=== PATIENT | female | born 1975 | race Caucasian/White ===

== ENCOUNTER 2016-03-18 15:57 | Observation (INO) ==
[2016-03-18] MEDS ORDERED: Ipratropium/Albuterol Neb 3 ML IH ONE ×2 (16:15→16:19)
[2016-03-18] MEDS ORDERED: methylPREDNISolone 125 MG/2 ML VIAL IVP ONE (16:15)
--- NOTE | 2016-03-18 16:21 | Emergency Department Note ---
Disposition Clinical Impression: Asthma with exacerbation Qualifiers: Asthma severity: unspecified severity Qualified Code(s): J45.901 - Unspecified asthma with (acute) exacerbation Disposition: Admitted As Inpatient Condition: Fair Referrals: Rolando Varela MD [Primary Care Provider] - Forms: ED Satisfaction Letter Time of Disposition: 17:59 SOB HPI - General Chief Complaint: ED Shortness of Breath/Dyspnea Stated Complaint: ROSY Time Seen by Provider: 03/18/16 16:14 Source: patient Mode of arrival: ambulatory Limitations: no limitations Nursing Notes Reviewed: Yes Vital Signs Reviewed: Yes - History of Present Illness 40-year-old with history of asthma comes in with a four-day history of increasing shortness of breath. Patient has been using her breathing machine at home every 2 hours without improvement. Pt Subjective Complaint: shortness of breath Onset (ago): day(s) (4) Context: recent illness Severity: moderate Consistency/Duration: constant Improves with: nothing Worsens with: exertion Known history of: asthma Treatment prior to arrival: bronchodilator Cough present: Yes - Related Data Home Medications Medication Instructions Recorded Confirmed Albuterol Sulfate [Proair 90 mcg IH Q4HR PRN 09/06/15 01/05/16 Respiclick] Budesonide/Formoterol 160/4.5 2 units IH BID 01/05/16 01/05/16 [Symbicort 160/4.5] Citalopram [CeleXA] 40 mg PO DAILY 01/05/16 01/05/16 Previous Rx's Medication Instructions Recorded Oxycodone HCl/Acetaminophen 1 each PO TID PRN #15 tablet 01/05/16 [Percocet 5-325 mg Tablet] Promethazine [Phenergan] 25 mg PO Q6HR PRN #15 tablet 01/05/16 Tamsulosin HCl [Flomax] 0.4 mg PO DAILY #30 cap.er.24h 01/05/16 Allergies Allergy/AdvReac Type Severity Reaction Status Date / Time Amoxicillin Allergy Severe Anaphylaxis Verified 09/06/15 00:08 Penicillins Allergy Severe Anaphylaxis Verified 09/06/15 00:08 Constitutional: Denies: fever, chills, weakness, weight change Eyes: Denies: eye pain, eye discharge, vision change ENT ED: Denies: ear pain, throat pain, dental pain, hearing loss, epistaxis, congestion, dysphagia Cardiovascular: Denies: chest pain, palpitations, dyspnea on exertion, edema, syncope Respiratory: Reports: cough, dyspnea, wheezes. Denies: hemoptysis, stridor Gastrointestinal: Denies: abdominal pain, nausea, vomiting, diarrhea, constipation, hematemesis, melena, hematochezia Genitourinary: Denies: dysuria, frequency, hematuria, discharge Musculoskeletal: Denies: back pain, neck pain, arthralgia, myalgia Integumentary: Denies: rash, abrasion, lesions Neurological: Denies: headache, weakness, numbness, paresthesias, confusion, abnormal gait, vertigo Psychiatric: Denies: anxiety, depression, suicidal thoughts, homicidal thoughts , auditory hallucinations, visual hallucinations Endocrine: Denies: fatigue Hematological/Lymphatic: Denies: easy bleeding, easy bruising Allergic/Immunologic: Denies: facial swelling, urticaria Past Medical History - Past Medical History Medical history: Reports: asthma, kidney stones, other Surgical history: Reports: Psychiatric history: Reports: no psych history - Social History Smoking Status: Former smoker Smokeless Tobacco Status: No Alcohol use: Reports: none Drug use: Reports: none Physical Exam - General Limitations: no limitations General appearance: alert, in no apparent distress - Head Head exam: atraumatic, normocephalic, normal inspection - Eye Eye exam: Present: normal appearance, PERRL, EOMI - ENT ENT exam: normal exam, normal oropharynx, mucous membranes moist - Neck Neck exam: Present: normal inspection, full ROM, trachea midline - Chest Chest inspection: Present: normal inspection, symmetric chest wall rise - Respiratory Respiratory exam: Present: respiratory distress (Moderate), wheezes, accessory muscle use - Cardiovascular Cardiovascular exam: Present: regular rate, normal rhythm, normal heart sounds - Abdominal Exam Abdominal exam: Present: soft, Non-Tender. Absent: tenderness, distention, guarding, rebound, rigidity - Extremities Exam Extremities exam: Present: normal inspection, full ROM. Absent: tenderness, pedal edema - Expanded Lower Extremity Exam Neurovascular/Tendon exam: Absent: motor deficit, sensory deficit, tendon deficit Gait: not tested/not observed - Back Exam Back exam: Present: normal inspection, full ROM. Absent: tenderness - Neurological Exam Neurological exam: Present: alert, oriented X3 - Psychiatric Psychiatric exam: Present: normal affect, normal mood - Skin Skin exam: Present: warm, dry, intact, normal color Course - Reevaluation(s) Reevaluation #1: The patient has continued diffuse wheezing. Time: 17:24 Vital Signs Temperature 97.5 F L 03/18/16 15:58 Pulse Rate 108 03/18/16 15:58 Respiratory Rate 24 03/18/16 15:58 Blood Pressure 147/65 03/18/16 15:58 O2 Sat by Pulse Oximetry 95 03/18/16 15:58 Temperature 97.5 F L 03/18/16 15:58 Pulse Rate 89 03/18/16 17:04 Respiratory Rate 22 03/18/16 17:04 Blood Pressure 116/84 03/18/16 17:04 O2 Sat by Pulse Oximetry 95 03/18/16 17:04 Oxygen Delivery Oxygen Delivery Nasal Cannula Shortness of Breath/Dyspnea - Lab Data Lab results reviewed: Yes I reviewed the patient's lab results. Result diagrams: 03/18/16 16:55 Lab Results 03/18/16 Range/Units 16:55 WBC 9.4 (4.3-11.1) K/mcL RBC 4.34 (3.82-4.97) M/mcL Hgb 12.6 (11.5-15.4) g/dL Hct 38.0 (35.3-44.9) % MCV 87.6 (83.0-100.0) fL MCH 29.0 (28.0-33.3) pg MCHC 33.2 (31.6-35.5) g/dL RDW 14.2 (11.5-14.5) % Plt Count 328 (140-400) K/mcL MPV 8.0 L (9.4-12.4) fL Immature Gran % 0.3 (0-4) % Seg Neutrophils % 66.4 % Lymphocytes % 21.1 % Monocytes % 7.7 % Eosinophils % 4.1 % Basophils % 0.4 % Neutrophils # 6.3 (1.6-8.9) K/mcL Lymphocytes # 2.0 (0.6-4.6) K/mcL Monocytes # 0.7 (0.0-1.3) K/mcL Eosinophils # 0.4 (0.0-0.6) K/mcL Basophils # 0.0 (0.0-0.2) K/mcL Immature Plt Fraction 0.6 L (1.1-6.1) % - Radiology Data Radiology results reviewed: Yes I reviewed the patient's radiology results. Chest X-Ray 03/18/16 16:36 IMPRESSION: 1. No acute cardiopulmonary disease. D/ / Brandon Alvares MD / Brandno Alvares MD Interpreting Provider: Brandon Alvares MD - EKG Data EKG attestation: Yes I reviewed and interpreted this EKG. EKG shows normal: Reports: sinus rhythm Rate: Reports: normal Rhythm: Reports: NSR Interpretation: Reports: no acute changes
[2016-03-18 17:05] LABS: Basophils % 0.4 %; Eosinophils # 0.4 K/mcL (0.0-0.6); Eosinophils % 4.1 %; Hemoglobin 12.6 g/dL (11.5-15.4); Immature Granulocytes % 0.3 % (0-4); Immature Platelets 0.6 % (1.1-6.1); Lymphocytes % 21.1 %; Mean Corpuscular HGB Conc 33.2 g/dL (31.6-35.5); Mean Corpuscular Volume 87.6 fL (83.0-100.0); Monocytes # 0.7 K/mcL (0.0-1.3); Monocytes % 7.7 %; Neutrophils # 6.3 K/mcL (1.6-8.9); Platelet Count 328 K/mcL (140-400); Red Blood Count 4.34 M/mcL (3.82-4.97); Red Cell Distribution Width 14.2 % (11.5-14.5); Segmented Neutrophils % 66.4 %
[2016-03-18 18:07] LABS: BUN/Creatinine Ratio 13 (6-26); Blood Urea Nitrogen 9 mg/dL (7-20); Calcium 9.1 mg/dL (8.6-10.8); Carbon Dioxide 20 mEq/L (19-29); Chloride 107 mEq/L (98-109); Glucose 103 mg/dL (70-99); Osmolality,Calculated 287 (280-300); Potassium 3.6 mEq/L (3.5-4.5); Sodium 139 mEq/L (136-145); eGFR For African Americans > 60 (> 60); eGFR For Non-African Americans > 60 (> 60)
[2016-03-18] MEDS ORDERED: Ibuprofen 600 MG TABLET PO ONE (18:27)
[2016-03-18] MEDS ORDERED: Naloxone 0.4 MG/ML INJ IVP PRN (20:44)
--- NOTE | 2016-03-18 20:54 | Internal Med History&Physical ---
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 Parra is a 40 year old female with PMH of asthma, nephrolithiasis who presented to the ER for evaluation of worsening shortness of breath. She states she has had worsening cough with SOB for the last three days and earlier today she did not get any relief with her home nebulizer treatments due to which she came to the ER. In the ER, patient received high dose steroid and bronchodilators therapy but without resolution of her presenting symptoms due to which she was further admitted for observation. At this time she is resting in bed, reports of a productive cough with yellow sputum. States her breathing is improved however the cough is causing her severe discomfort. Denies any history of prior intubations. Denies any headache, chest pain, abd pain, n/v, fever, or chills. PMH: Asthma, Nephrolithiasis, Depression Social hx: Former smoker (quit in August 2015-hx of 15+years of smoking) Past Med Surg Social Fam HX - Past Medical History Medical history: asthma, kidney stones Psychiatric history: no psych history - Past Surgical History Surgical History: - Social History Smoking Status: Former smoker Smokeless Tobacco Status: No Alcohol use: none Drug use: none - Family History Mother Family Member Ethnicity: Non- Living Status: Still Living Hx Family Cardiac Disorders: Yes (HYPERTENSION.) Hx Family Respiratory Disorders: No Hx Family Cancer: No Hx Family GI Disorders: No Hx Family Endocrine Disorder: No Hx Family Neuromuscular Disorders: No Hx Family Neurologic Disorders: No Hx Family HEENT Disorders: No Hx Family Autoimmune Disorders: No Internal Medicine - H&P: Meds Albuterol Sulfate [Proair Respiclick] 90 mcg IH Q4HR PRN 09/06/15 [History] Budesonide/Formoterol 160/4.5 [Symbicort 160/4.5] 2 puff IH BID 01/05/16 [ History] Citalopram [CeleXA] 40 mg PO DAILY 01/05/16 [History] Promethazine [Phenergan] 25 mg PO Q6HR PRN #15 tablet 01/05/16 [Rx] Allergies Amoxicillin Allergy (Severe, Verified 09/06/15 00:08) Anaphylaxis Penicillins Allergy (Severe, Verified 09/06/15 00:08) Anaphylaxis All Systems PM: A 10-system review of systems was performed and is negative for pertinent findings except as documented above in the HPI. - Constitutional Constitutional: as per HPI - Constitutional Vitals: Temp Pulse Resp BP Pulse Ox 98.1 F 92 16 133/70 99 03/18/16 19:14 03/18/16 19:14 03/18/16 19:14 03/18/16 19:14 03/18/16 19:14 General appearance: Present: A&O X 3, pleasant, no acute distress, obese, answers questions appropriately - Head Head exam: Present: atraumatic, normocephalic - Eye Eye exam: Present: PERRL, conjuntiva pink, sclera anicteric - Respiratory Respiratory exam: Present: decreased breath sounds (equal air entry bilaterally) . Absent: respiratory distress, wheezes, tachypnea - Cardiovascular Cardiovascular exam: Present: RRR, +S1, +S2 - GI/Abdominal GI/Abdominal exam: Present: normal bowel sounds, soft. Absent: tenderness - Extremities Exam Extremities exam: Present: warm, radial pulses palpable and symetrical. Absent : calf tenderness, pedal edema, tenderness - Neurological Exam Neurological exam: Present: alert, oriented X3, no focal deficits - Psychiatric Psychiatric exam: Present: normal affect, normal mood Internal Med - H&P Results - Labs CBC & Chem 7: 03/18/16 16:55 03/18/16 16:55
[2016-03-18] MEDS: Budesonide/Formoterol 160/4.5 MDI IH SCH (21:01)
[2016-03-18] MEDS: GuaiFENesin/Codeine Oral Soln 5 ML UDC PO PRN (21:50)
[2016-03-18] MEDS: Ipratropium/Albuterol Neb 3 ML IH PRN (22:47)
[2016-03-19] MEDS ORDERED: *HR* HYDROcodone/Acet 5/325 mg TABLET PO ONE (03:16)
[2016-03-19] MEDS: GuaiFENesin/Codeine Oral Soln 5 ML UDC PO PRN (04:34)
[2016-03-19 05:01] LABS: Basophils % 0.2 %; Hemoglobin 11.9 g/dL (11.5-15.4); Immature Granulocytes % 0.4 % (0-4); Lymphocytes # 0.6 K/mcL (0.6-4.6); Lymphocytes % 11.1 %; Mean Corpuscular HGB Conc 32.2 g/dL (31.6-35.5); Mean Corpuscular Hemoglobin 27.9 pg (28.0-33.3); Mean Corpuscular Volume 86.9 fL (83.0-100.0); Mean Platelet Volume 8.6 fL (9.4-12.4); Monocytes # 0.1 K/mcL (0.0-1.3); Monocytes % 2.5 %; Neutrophils # 4.9 K/mcL (1.6-8.9); Platelet Count 309 K/mcL (140-400); Red Blood Count 4.26 M/mcL (3.82-4.97); Red Cell Distribution Width 14.4 % (11.5-14.5); Segmented Neutrophils % 85.8 %
[2016-03-19 05:07] LABS: BUN/Creatinine Ratio 15 (6-26); Blood Urea Nitrogen 11 mg/dL (7-20); Calcium 9.4 mg/dL (8.6-10.8); Carbon Dioxide 18 mEq/L (19-29); Chloride 107 mEq/L (98-109); Glucose 178 mg/dL (70-99); Magnesium 2.2 mg/dL (1.6-2.6); Osmolality,Calculated 286 (280-300); Potassium 3.8 mEq/L (3.5-4.5); Sodium 136 mEq/L (136-145); eGFR For African Americans > 60 (> 60); eGFR For Non-African Americans > 60 (> 60)
[2016-03-19] MEDS: *HR* Enoxaparin 40 MG/0.4 ML SYRINGE SQ SCH (06:28)
[2016-03-19] MEDS: MethylPREDNISolone 40 MG/ML VIAL IVP SCH ×2 (06:29→16:56)
[2016-03-19] MEDS ORDERED: *HR* Morphine 2 MG/ML SYRINGE IVP PRN (08:10)
[2016-03-19] MEDS ORDERED: *HR* OxyCODONE Immed Rel 5 MG TABLET PO PRN (08:10)
[2016-03-19] MEDS: Budesonide/Formoterol 160/4.5 MDI IH SCH ×2 (08:26→20:42)
[2016-03-19] MEDS: Ipratropium/Albuterol Neb 3 ML IH PRN ×2 (08:26→12:03)
--- NOTE | 2016-03-19 11:22 | Electrocardiograph Report ---
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
--- NOTE | 2016-03-19 14:19 | Internal Med Progress Note ---
Date of Encounter: 03/19/16 Time of Encounter: 10:30 - Assessment and plan (1) Asthma with exacerbation Current Visit: Yes Status: Acute Assessment and plan: Patient is stating her breathing is better but she is not back to her baseline. She states that her symptoms are much worse at night and states that she was up all night last night coughing with severe chest pain and was unable to sleep. We will initiate cough medication. She is also endorsing severe chest pain and pain medication has been ordered. Chest x-ray negative. On examination fair to good aeration noted throughout with few, scattered wheezes present. Suspect she will be able to be discharged tomorrow pending clinical outcomes. ITS Impressions Chest X-Ray 03/18/16 16:36 IMPRESSION: 1. No acute cardiopulmonary disease. D/ / Brandon Alvares MD / Brandon Alvares MD Interpreting Provider: Brandon Alvares MD Qualifiers: Asthma severity: unspecified severity Qualified Code(s): J45.901 - Unspecified asthma with (acute) exacerbation (2) Cough Current Visit: Yes Status: Acute (3) DVT prophylaxis Current Visit: Yes Status: Acute Assessment and plan: Subcutaneous Lovenox (4) Tobacco abuse disorder Current Visit: No Status: Resolved Assessment and plan: Patient stating she has not smoked since August 2015 - Subjective Interval history: Patient seen and examined. On examination, patient initially asleep and awakened easily to voice. She states she is feeling better and her pain is now controlled. She states she is eating well. Patient stating her cough is worse at night and she is afraid to go home tonight stating that she feels as if she would cough, have chest pain, and have to come back to the hospital. - Constitutional Vitals: Temp Pulse Resp BP Pulse Ox 98.0 F 82 16 148/92 97 03/19/16 06:56 03/19/16 06:56 03/19/16 12:07 03/19/16 12:07 03/19/16 12:07 General appearance: Present: A&O X 3, pleasant, no acute distress, obese, answers questions appropriately - Head Head exam: Present: atraumatic, normocephalic - Eye Eye exam: Present: PERRL, conjuntiva pink, sclera anicteric Pupils: Present: PERRL - Neck Neck exam general surgery: Present: supple, trachea midline. Absent: lymphadenopathy - Respiratory Respiratory exam: Present: decreased breath sounds. Absent: accessory muscle use, rales, respiratory distress, rhonchi, wheezes - Cardiovascular Cardiovascular exam: Present: RRR, +S1, +S2. Absent: diastolic murmur, gallop, rubs, systolic murmur - GI/Abdominal GI/Abdominal exam: Present: normal bowel sounds, soft, no peritoneal signs. Absent: distended, tenderness - Extremities Exam Extremities exam: Present: warm, radial pulses palpable and symetrical. Absent : calf tenderness, cyanotic, pedal edema - Neurological Exam Neurological exam: Present: alert, CN II-XII intact, oriented X3, no focal deficits, strengths equal and symetr throughout. Absent: pronater drift, facial droop, speech deficit - Skin Skin exam: Present: dry, intact, pallor, warm Internal Medicine: Result - Labs CBC & Chem 7: 03/19/16 03:06 03/19/16 03:06 Labs: Short CBC 03/19/16 Range/Units 03:06 WBC 5.7 (4.3-11.1) K/mcL Hgb 11.9 (11.5-15.4) g/dL Hct 37.0 (35.3-44.9) % Plt Count 309 (140-400) K/mcL Neutrophils # 4.9 (1.6-8.9) K/mcL BMP 03/19/16 03:06 Sodium 136 Potassium 3.8 Chloride 107 Carbon Dioxide 18 L BUN 11 Creatinine 0.72 Glucose 178 H Calcium 9.4 Consult Discharge Plan - Plan Referrals: Rolando Varela MD [Primary Care Provider] -
[2016-03-19] MEDS ORDERED: *HR* Codeine Sulfate 30 MG TABLET PO PRN (14:23)
[2016-03-19] MEDS ORDERED: Albuterol 2.5 MG/3 ML NEBULIZER IH PRN (14:23)
[2016-03-19] MEDS ORDERED: Benzonatate 100 MG CAPSULE PO PRN (14:23)
[2016-03-19] MEDS ORDERED: Ondansetron 4 MG/2 ML VIAL IVP PRN (14:24)
[2016-03-19] MEDS: Ipratropium/Albuterol Neb 3 ML IH SCH ×2 (15:55→20:42)
[2016-03-20] MEDS: Ipratropium/Albuterol Neb 3 ML IH SCH ×2 (04:47→10:37)
[2016-03-20] MEDS: *HR* Enoxaparin 40 MG/0.4 ML SYRINGE SQ SCH (05:50)
[2016-03-20] MEDS: MethylPREDNISolone 40 MG/ML VIAL IVP SCH (05:50)
[2016-03-20 06:40] VITALS: BP 133/83
--- NOTE | 2016-03-20 10:14 | Discharge Summary ---
Date of Encounter: 03/20/16 Time of Encounter: 09:15 - Discharge Diagnosis (1) Asthma with exacerbation Priority: Primary Status: Resolved Comments: Patient denies shortness of breath above her normal day of discharge Qualifiers: Asthma severity: unspecified severity Qualified Code(s): J45.901 - Unspecified asthma with (acute) exacerbation (2) Cough Priority: Primary Status: Acute (3) DVT prophylaxis Priority: Primary Status: Acute Comments: Subcutaneous Lovenox while admitted (4) Tobacco abuse disorder Priority: Primary Status: Resolved Comments: Patient stating she has not smoked since August 2015 - Discharge Medications Prescriptions: Codeine Sulfate 30 mg PO HS PRN #5 tablet PRN Reason: cough Omeprazole [PriLOSEC] 20 mg PO DAILY@0630 #30 capsule. PredniSONE 40 mg PO DAILY #10 tablet Home Medications: Albuterol Sulfate [Proair Respiclick] 90 mcg IH Q4HR PRN 09/06/15 [History] Budesonide/Formoterol 160/4.5 [Symbicort 160/4.5] 2 puff IH BID 01/05/16 [ History] Citalopram [CeleXA] 40 mg PO DAILY 01/05/16 [History] Promethazine [Phenergan] 25 mg PO Q6HR PRN #15 tablet 01/05/16 [Rx] Codeine Sulfate 30 mg PO HS PRN #5 tablet 03/20/16 [Rx] Omeprazole [PriLOSEC] 20 mg PO DAILY@0630 #30 capsule. 03/20/16 [Rx] PredniSONE 40 mg PO DAILY #10 tablet 03/20/16 [Rx] Allergies/Adverse Reactions: Allergies Amoxicillin Allergy (Severe, Verified 09/06/15 00:08) Anaphylaxis Penicillins Allergy (Severe, Verified 09/06/15 00:08) Anaphylaxis Procedures/tests Complete & Pending: Procedures Performed prior 72 hours Category Date Time Status ECG 12 lead ECG [ECG] Routine Y 03/18/16 12:00 Completed Date of admission: 03/18/16 18:15 Primary care physician: Rolando Varela Discharging clinician: Emilee Day Anticipated date of discharge: 03/20/16 - Patient Status Disposition: Home, Self-Care Condition: Good Functional capacity at discharge: independent ambulation Overall status at discharge: patient is back to baseline - Discharge Instructions Follow Up With: Rolando Varela MD [Primary Care Provider] - 03/27/16 10:30 am Additional Instructions: Follow-up with primary care provider as scheduled - Diet and Activity Activity: increase activity as tolerated Diet: regular diet Hospital course: Ms. Parra is a 40 year old female with past medical history of asthma, kidney stones, and former tobacco abuse in remission since August 2015. Patient presented to the emergency department chief complaint worsening shortness of breath. Patient stating she had worsening cough with shortness of breath 3 days prior to presentation that was not relieved with her home nebulized treatments. Patient's symptoms did not improve in the emergency department with high-dose steroid and bronchodilators and she was subsequently admitted to the hospitalist service for further evaluation and management. Chest x-ray negative. She was admitted for acute exacerbation of asthma and observed over the course of 3 days. She did not require supplemental oxygenation. On day of discharge, she denied shortness of breath above her norm. She tolerated a regular diet while admitted. She was discharged home in stable condition with close outpatient follow-up recommended. ITS Impressions Chest X-Ray 03/18/16 16:36 IMPRESSION: 1. No acute cardiopulmonary disease. D/ / Brandon Alvares MD / Brandon Alvares MD Interpreting Provider: Brandon Alvares MD - Time Spent with Patient Total time spent providing and/or coordinating discharge services: - Constitutional Vitals: Temp Pulse Resp BP Pulse Ox 98.3 F 85 18 133/83 99 03/20/16 06:38 03/20/16 06:38 03/20/16 06:38 03/20/16 06:38 03/20/16 07:42 General appearance: Present: A&O X 3, pleasant, no acute distress, obese, answers questions appropriately - Head Head exam: Present: atraumatic, normocephalic - Eye Eye exam: Present: PERRL, conjuntiva pink, sclera anicteric Pupils: Present: PERRL - Neck Neck exam general surgery: Present: supple, trachea midline. Absent: lymphadenopathy - Respiratory Respiratory exam: Present: CTAB, wheezes (few, scattered; good aeration). Absent: accessory muscle use, rales, respiratory distress, rhonchi - Cardiovascular Cardiovascular exam: Present: RRR, +S1, +S2. Absent: diastolic murmur, gallop, rubs, systolic murmur - GI/Abdominal GI/Abdominal exam: Present: normal bowel sounds, soft, no peritoneal signs. Absent: distended, tenderness - Extremities Exam Extremities exam: Present: warm, radial pulses palpable and symetrical. Absent : calf tenderness, cyanotic, pedal edema - Neurological Exam Neurological exam: Present: alert, CN II-XII intact, normal gait, oriented X3, no focal deficits, strengths equal and symetr throughout. Absent: pronater drift, facial droop, speech deficit - Skin Skin exam: Present: dry, intact, normal color, warm
[2016-03-20] MEDS: Budesonide/Formoterol 160/4.5 MDI IH SCH (10:37)
== END 2016-03-20 10:43 | disposition home or self-care (01) ==
LOC: 3BNU 15:57 → EMEROO 15:57 → 3BNU 19:03
PROVIDERS: ADMIT Internal Medicine; ATTEND Internal Medicine

== ENCOUNTER 2016-06-04 12:19 | Observation (INO) ==
[2016-06-04] MEDS ORDERED: Albuterol 2.5 MG/3 ML NEBULIZER IH ONE (12:52)
[2016-06-04] MEDS ORDERED: Ipratropium/Albuterol Neb 3 ML IH ONE ×2 (12:53→18:41)
[2016-06-04] MEDS ORDERED: predniSONE 20 MG TABLET PO ONE (12:53)
--- NOTE | 2016-06-04 13:02 | Emergency Department Note ---
Disposition Clinical Impression: Acute exacerbation of chronic obstructive airways disease Dyspnea Qualifiers: Dyspnea type: unspecified Qualified Code(s): R06.00 - Dyspnea, unspecified Disposition: Admitted As Inpatient Condition: Good Time of Disposition: 17:00 General Adult HPI - General Chief complaint: ED Shortness of Breath/Dyspnea Stated complaint: Cough, congestion, asthma Time Seen by Provider: 06/04/16 12:45 Source: patient Mode of arrival: ambulatory Limitations: no limitations Nursing Notes Reviewed: Yes Vital Signs Reviewed: Yes - History of Present Illness HPI Narrative: 40-year-old female history of asthma and former pack per day smoker presents to the ED with cough and congestion with wheezing. Reports worsening shortness of breath and wheezing over the past several nights. Reports increase in sputum production and change in sputum color green. Denies any fevers, rhinorrhea, nausea or vomiting. She has chest discomfort with deep inhalation. She has been needing to use her albuterol and nebulizer more frequently over the past several days with no significant relief. Reports being admitted for similar symptoms in March where she required IV antibiotics steroids and continuous breathing treatments. She denies any recent travel or rashes. Denies any history of blood clots or use of estrogen. History of a tubal ligation. Smoking cessation started last August. Pain Scale: 5 - Related Data Home Medications Medication Instructions Recorded Confirmed Budesonide/Formoterol 160/4.5 2 puff IH BID 01/05/16 06/04/16 [Symbicort 160/4.5] Citalopram [CeleXA] 40 mg PO DAILY 01/05/16 06/04/16 Albuterol Sulfate [Proair Hfa] 2 puff IH Q4H PRN 06/04/16 06/04/16 Biotin 1 mg PO DAILY 06/04/16 06/04/16 Ranitidine HCl [Zantac 75] 75 mg PO DAILY 06/04/16 06/04/16 Allergies Allergy/AdvReac Type Severity Reaction Status Date / Time Amoxicillin Allergy Severe Anaphylaxis Verified 09/06/15 00:08 Penicillins Allergy Severe Anaphylaxis Verified 09/06/15 00:08 All systems ED: reviewed and negative except as stated. Constitutional: Denies: fever, chills Cardiovascular: Reports: chest pain Respiratory: Reports: cough, dyspnea Gastrointestinal: Denies: abdominal pain, nausea, vomiting Genitourinary: Denies: urgency, dysuria Musculoskeletal: Denies: back pain, neck pain Integumentary: Denies: rash, abrasion Past Medical History - Past Medical History Attestation: Yes The following information was validated with the patient. Source: patient Medical history: Reports: asthma, kidney stones Surgical history: Reports: Psychiatric history: Reports: no psych history - Social History Smoking Status: Former smoker Smokeless Tobacco Status: No Alcohol use: Reports: rarely Drug use: Reports: none Physical Exam - General Limitations: no limitations General appearance: alert, in no apparent distress - Head Head exam: atraumatic, normocephalic, normal inspection - Eye Eye exam: Present: normal appearance, PERRL, EOMI - ENT ENT exam: normal exam, normal oropharynx, mucous membranes moist - Neck Neck exam: Present: normal inspection, full ROM, trachea midline - Chest Chest inspection: Present: normal inspection, symmetric chest wall rise. Absent : tenderness - Respiratory Respiratory exam: Present: wheezes, other (Diffuse bilateral wheezing and tight minimal breath sounds) - Cardiovascular Cardiovascular exam: Present: regular rate, normal rhythm, normal heart sounds. Absent: systolic murmur, diastolic murmur - Abdominal Exam Abdominal exam: Present: soft, Non-Tender, normal bowel sounds. Absent: tenderness, distention, guarding, rebound, rigidity - Extremities Exam Extremities exam: Present: normal inspection, full ROM, normal capillary refill. Absent: tenderness, pedal edema, calf tenderness - Back Exam Back exam: Present: normal inspection, full ROM. Absent: tenderness - Neurological Exam Neurological exam: Present: alert, oriented X3 - Psychiatric Psychiatric exam: Present: normal affect, normal mood - Skin Skin exam: Present: warm, dry, intact, normal color. Absent: rash Course Course Narrative: 40-year-old female presents the ED with cough and wheezing. This has been ongoing for the past several days. She is 97% on room air some increase work in breathing. She is tacypneic at 25 with HR of 98. She meets 2 of 4 SIRS criteria. Due to recent hospitalization for asthma/COPD exacerbation will check lactate, blood cultures, basic labs, and EKG with CXR for possible pneumonia. She has some increase work of breathing and lungs are diffusely wheezing bilaterally and tight. Heart is regular rate and rhythm. Gonads and steroids ordered. Will reassess and ambulate prior to disposition. - Reevaluation(s) Reevaluation #1: Labs are otherwise unremarkable. Chest x-ray does not reveal any pulmonary infiltrate. She has sharp costophrenic angles. After 3 continuous breathing and steroid treatments she continues to be wheezing bilaterally but is moving air much better. She only reports mild improvement. She ambulated around the department where she felt more shorter breath with increased work of breathing but the pulse ox was unable to read. When she returned her to her room her pulse ox was 91% with heart rate of 125. She did not have a leukocytosis as her WBC was 8.8, her chest x-ray was clear, and she does not appear septic, her lactate was 1.0. I do not believe she has a pneumonia and antibiotics are not indicated at this time. She is PERC negative as she was not tachycardic upon arrival nor was she hypoxic. She most likely has an exacerbation of her asthma possible COPD and continues to have increased work and diffuse wheezing bilaterally. Recommended admission for further management and continuous breathing treatments. Patient is in agreement with plan. Impression is hypoxia and COPD exacerbation. Time: 15:20 - Consultations Consultation #1: Spoke with nehal Hernandez to admit for COPD exacerbation. No further orders at this time. Time: 17:00 Vital Signs Temperature 98.5 F 06/04/16 12:24 Pulse Rate 94 06/04/16 12:24 Respiratory Rate 25 06/04/16 12:24 Blood Pressure 146/87 06/04/16 12:24 O2 Sat by Pulse Oximetry 96 06/04/16 12:24 Temperature 98.2 F 06/04/16 19:27 Pulse Rate 95 06/04/16 19:27 Respiratory Rate 16 06/04/16 19:27 Blood Pressure 123/82 06/04/16 19:27 O2 Sat by Pulse Oximetry 93 L 06/04/16 19:27 Oxygen Delivery Oxygen Delivery Room Air Medical Decision Making - MDM Narrative Medical decision making narrative: I examined this patient and my medical decision-making was reviewed with the TRASH TRUCK DRIVER/PA/Advanced Practice Nurse/Resident Physician. I agree with the documented findings, disposition and treatment plan as described except to the extent set forth below. Patient was seen and evaluated by myself and Dr. Haq, I agree with his evaluation management plan, supravascular the patient's stay. Patient's asthmatic she has had increasing dyspnea here despite using the meds at home. She has some wheezing here and decreased aeration in the bases. Breathing treatment chest x-ray and reassess. Make sure she does not have pneumonia. She agrees with this plan. Chest X-Ray 06/04/16 12:53 IMPRESSION: Stable appearing chest without acute cardiopulmonary process. D/ / Denny Gregorio MD / Denny Gregorio MD Interpreting Provider: Denny Gregorio MD 1430 hrs.: Patient stalling wheezing even after 3 treatments. Chest x-ray shows no pneumonia. She has had steroids also. I think it would be best to bring her into the hospital. She is in agreement with this plan. Impressions acute exacerbation of reactive airway disease and asthma. Patient's critical care time exclusive of billable procedures is 30 minutes. - Medical Records Medical records reviewed: Yes I reviewed the patient's medical records. - Lab Data Lab results reviewed: Yes I reviewed the patient's lab results. Result diagrams: 06/04/16 13:03 06/04/16 13:03 Lab Results 06/04/16 06/04/16 06/04/16 Range/Units 13:03 13:03 13:03 WBC 8.8 (4.3-11.1) K/mcL RBC 4.35 (3.82-4.97) M/mcL Hgb 12.0 (11.5-15.4) g/dL Hct 37.7 (35.3-44.9) % MCV 86.7 (83.0-100.0) fL MCH 27.6 L (28.0-33.3) pg MCHC 31.8 (31.6-35.5) g/dL RDW 15.7 H (11.5-14.5) % Plt Count 300 (140-400) K/mcL MPV 8.4 L (9.4-12.4) fL Immature Gran % 0.2 (0-4) % Seg Neutrophils % 50.5 % Lymphocytes % 31.6 % Monocytes % 7.4 % Eosinophils % 9.6 % Basophils % 0.7 % Neutrophils # 4.4 (1.6-8.9) K/mcL Lymphocytes # 2.8 (0.6-4.6) K/mcL Monocytes # 0.7 (0.0-1.3) K/mcL Eosinophils # 0.8 H (0.0-0.6) K/mcL Basophils # 0.1 (0.0-0.2) K/mcL PT (9.4-12.1) Seconds INR APTT (26.0-36.0) Seconds Sodium 137 (136-145) mEq/L Potassium 3.9 (3.5-4.5) mEq/L Chloride 108 (98-109) mEq/L Carbon Dioxide 24 (19-29) mEq/L BUN 9 (7-20) mg/dL Creatinine 0.71 (0.57-1.11) mg/dL Est GFR ( Amer) > 60 (> 60) Est GFR (Non-Af Amer) > 60 (> 60) BUN/Creatinine Ratio 13 (6-26) Glucose 94 (70-99) mg/dL Calculated Osmolality 282 (280-300) Lactic Acid (0.5-2.2) mmol/L Calcium 8.9 (8.6-10.8) mg/dL Phosphorus 2.9 (2.3-4.7) mg/dL Magnesium 1.8 (1.6-2.6) mg/dL Troponin I 0.01 (0-0.03) ng/mL Urine Color (Yellow) Urine Clarity (Clear) Urine pH (5.0-8.0) pH Units Ur Specific [place] (1.010-1.025) Urine Protein (Neg-Trace) mg/dL Urine Glucose (UA) (Normal) mg/dL Urine Ketones (Negative) mg/dL Urine Blood (Negative) Urine Nitrite (Negative) Urine Bilirubin (Negative) Urine Urobilinogen (Normal) mg/dL Ur Leukocyte Esterase (Negative) Ur Culture Indicated? (NO) 06/04/16 06/04/16 06/04/16 Range/Units 13:03 13:20 14:30 WBC (4.3-11.1) K/mcL RBC (3.82-4.97) M/mcL Hgb (11.5-15.4) g/dL Hct (35.3-44.9) % MCV (83.0-100.0) fL MCH (28.0-33.3) pg MCHC (31.6-35.5) g/dL RDW (11.5-14.5) % Plt Count (140-400) K/mcL MPV (9.4-12.4) fL Immature Gran % (0-4) % Seg Neutrophils % % Lymphocytes % % Monocytes % % Eosinophils % % Basophils % % Neutrophils # (1.6-8.9) K/mcL Lymphocytes # (0.6-4.6) K/mcL Monocytes # (0.0-1.3) K/mcL Eosinophils # (0.0-0.6) K/mcL Basophils # (0.0-0.2) K/mcL PT 11.6 (9.4-12.1) Seconds INR 1.1 APTT 30.4 (26.0-36.0) Seconds Sodium (136-145) mEq/L Potassium (3.5-4.5) mEq/L Chloride (98-109) mEq/L Carbon Dioxide (19-29) mEq/L BUN (7-20) mg/dL Creatinine (0.57-1.11) mg/dL Est GFR ( Amer) (> 60) Est GFR (Non-Af Amer) (> 60) BUN/Creatinine Ratio (6-26) Glucose (70-99) mg/dL Calculated Osmolality (280-300) Lactic Acid 1.0 (0.5-2.2) mmol/L Calcium (8.6-10.8) mg/dL Phosphorus (2.3-4.7) mg/dL Magnesium (1.6-2.6) mg/dL Troponin I (0-0.03) ng/mL Urine Color Yellow (Yellow) Urine Clarity Hazy A (Clear) Urine pH 6.5 (5.0-8.0) pH Units Ur Specific [place] 1.029 H (1.010-1.025) Urine Protein Trace (Neg-Trace) mg/dL Urine Glucose (UA) Normal (Normal) mg/dL Urine Ketones Negative (Negative) mg/dL Urine Blood Negative (Negative) Urine Nitrite Negative (Negative) Urine Bilirubin Negative (Negative) Urine Urobilinogen Normal (Normal) mg/dL Ur Leukocyte Esterase Negative (Negative) Ur Culture Indicated? NO (NO) - Radiology Data Radiology results reviewed: Yes I reviewed the patient's radiology results. Chest X-Ray 06/04/16 12:53 IMPRESSION: Stable appearing chest without acute cardiopulmonary process. D/ / Denny Gregorio MD / Denny Gregorio MD Interpreting Provider: Denny Gregorio MD - EKG Data EKG #1 EKG attestation: Yes I reviewed and interpreted this EKG. EKG results narrative: EKG performed 1310 normal sinus rhythm 87 bpm, good R-R wave progression, normal axis, there are no ST elevations or depressions, nonspecific T-wave changes. Intervals are within normal limits HI interval 139 QRS 81 QT QTC 358 403. Compared to old EKG performed 03/18/2016 shows consistent findings with nonspecific T-wave changes consistent with today's EKG.. No acute ischemic changes.
[2016-06-04 13:16] LABS: Basophils # 0.1 K/mcL (0.0-0.2); Basophils % 0.7 %; Eosinophils # 0.8 K/mcL (0.0-0.6); Eosinophils % 9.6 %; Hematocrit 37.7 % (35.3-44.9); Immature Granulocytes % 0.2 % (0-4); Lymphocytes # 2.8 K/mcL (0.6-4.6); Lymphocytes % 31.6 %; Mean Corpuscular HGB Conc 31.8 g/dL (31.6-35.5); Mean Corpuscular Hemoglobin 27.6 pg (28.0-33.3); Mean Corpuscular Volume 86.7 fL (83.0-100.0); Mean Platelet Volume 8.4 fL (9.4-12.4); Monocytes # 0.7 K/mcL (0.0-1.3); Monocytes % 7.4 %; Neutrophils # 4.4 K/mcL (1.6-8.9); Platelet Count 300 K/mcL (140-400); Red Blood Count 4.35 M/mcL (3.82-4.97); Red Cell Distribution Width 15.7 % (11.5-14.5); Segmented Neutrophils % 50.5 %
[2016-06-04 13:19] LABS: INR 1.1; Prothrombin Time 11.6 Seconds (9.4-12.1)
[2016-06-04 13:22] LABS: Activated Partial Thrombo Time 30.4 Seconds (26.0-36.0)
[2016-06-04 13:27] LABS: BUN/Creatinine Ratio 13 (6-26); Blood Urea Nitrogen 9 mg/dL (7-20); Calcium 8.9 mg/dL (8.6-10.8); Carbon Dioxide 24 mEq/L (19-29); Chloride 108 mEq/L (98-109); Glucose 94 mg/dL (70-99); Osmolality,Calculated 282 (280-300); Potassium 3.9 mEq/L (3.5-4.5); Sodium 137 mEq/L (136-145); eGFR For African Americans > 60 (> 60); eGFR For Non-African Americans > 60 (> 60)
[2016-06-04 14:42] LABS: Bilirubin,Urine Negative (Negative); Blood,Urine Negative (Negative); Color,Urine Yellow (Yellow); Glucose,Urine (UA) Normal (Normal); Ketones,Urine Negative (Negative); Leukocyte Esterase,Urine Negative (Negative); Nitrite,Urine Negative (Negative); PH,Urine 6.5 pH Units (5.0-8.0); Protein,Urine Trace mg/dL (Neg-Trace); Specific Gravity,Urine 1.029 (1.010-1.025); Urobilinogen,Urine Normal (Normal)
[2016-06-04 14:43] LABS: Clarity,Urine Hazy (Clear)
[2016-06-04 15:21] LABS: Magnesium 1.8 mg/dL (1.6-2.6); Phosphorous 2.9 mg/dL (2.3-4.7)
[2016-06-04] MEDS ORDERED: Ibuprofen 400 MG TABLET PO PRN (17:38)
[2016-06-04] MEDS ORDERED: Benzonatate 100 MG CAPSULE PO ONE (18:41)
[2016-06-04] MEDS ORDERED: Albuterol 2.5 MG/3 ML NEBULIZER IH PRN (19:28)
[2016-06-04] MEDS ORDERED: Naloxone 0.4 MG/ML INJ IVP PRN (19:55)
[2016-06-04] MEDS ORDERED: methylPREDNISolone 125 MG/2 ML VIAL IVP ONE (19:57)
--- NOTE | 2016-06-04 20:06 | Internal Med History&Physical ---
<OakleyCriselda M - Last Filed: 06/04/16 20:55> Date of Encounter: 06/04/16 Time of Encounter: 20:01 Assessment and Plan (1) Acute exacerbation of chronic obstructive airways disease Current visit: Yes Status: Acute Patient reports history of asthma and a 23 pack year smoking history. She quit smoking last summer. Patient presents with cough productive of thick green sputum and wheezing which has been worsening over the last 3 days. She has increasing shortness of breath as well. CXR showed no acute process. WBC normal at 8.8. Patient is afebrile. Solu-medrol 125mg IVP once followed by 40mg IVP Q8hrs duoneb treatments QIDR Albuterol nebulizer Q2hr PRN tessalon TID PRN mucinex 600mg BID titrate oxygen to maintain O2 sat > 92%. (2) Pain initiated by coughing Current visit: Yes Status: Acute Patient reporting pain in lateral ribs that has been worsening over the last few days due to her cough. She reports it is worse with coughing. Tessalon TID PRN Ibuprofen 400mg PRN for mild pain [place] 5-325 PRN for moderate pain Narcan PRN for respiratory depression. (3) Cough Current visit: No Status: Acute Patient with productive cough, wheezing, pain with cough. tessalon TID PRN Mucinex BID duoneb treatments QIDR Albuterol nebulizer Q2 PRN Ibuprofen and [place] PRN for pain in ribs with cough. (4) DVT prophylaxis Current visit: No Status: Acute encourage ambulation anti-embolic stockings Heparin 5000u SQ BID Internal Medicine - H&P: HPI Chief complaint: wheezing Admitted From: Emergency Dept Plans for Post Hospital Care: Home History of present illness: Ms. Parra is a 40 year old female with asthma, history of kidney stones who presented to the emergency department today complaining of cough congestion and wheezing lasting the last 3 days. She reports she has increased sputum production with thick green mucus. Pain in her lateral ribs due to the excessive coughing. She is woken up in the middle of the night, last 2 nights because she felt like she could not breathe. She has been taking her inhaler and her nebulizer treatments at home as well as taking [id number] Mucinex without relief of her symptoms. She reports her symptoms have been worsening over the last several days. She reports occasional lightheadedness, and headache. She denies any palpitations, nausea, vomiting, abdominal pain. She denies any fever or chills, but reports sweats. Evaluation in emergency department included chest x-ray which showed no acute process, EKG showed normal sinus rhythm with heart rate of 87. She was tachypneic with respiration rate of 25 and tachycardic with heart rate of 98. Lactate was normal at 1.0, white blood cell count was normal at 8.8. Troponin was negative at 0.01. On exam, patient is alert and oriented. She is mildly tachypneic, with audible wheezes. Lungs have diffuse wheezing on auscultation. Heart is regular rate and rhythm. Past Med Surg Social Fam HX - Past Medical History Medical history: asthma, kidney stones Psychiatric history: no psych history - Past Surgical History Surgical History: - Social History Smoking Status: Former smoker (23 Pack year history) Smokeless Tobacco Status: No Alcohol use: rarely Drug use: none - Family History Father Living Status: Still Living Hx Family Neuromuscular Disorders: Yes (MS) Mother Family Member Ethnicity: Non- Living Status: Still Living Hx Family Cardiac Disorders: Yes (HYPERTENSION.) Hx Family Respiratory Disorders: No Hx Family Cancer: No Hx Family GI Disorders: No Hx Family Endocrine Disorder: Yes (DM) Hx Family Neuromuscular Disorders: No Hx Family Neurologic Disorders: No Hx Family HEENT Disorders: No Hx Family Autoimmune Disorders: No Internal Medicine - H&P: Meds Budesonide/Formoterol 160/4.5 [Symbicort 160/4.5] 2 puff IH BID 01/05/16 [ History] Citalopram [CeleXA] 40 mg PO DAILY 01/05/16 [History] Albuterol Sulfate [Proair Hfa] 2 puff IH Q4H PRN 06/04/16 [History] Biotin 1 mg PO DAILY 06/04/16 [History] Ranitidine HCl [Zantac 75] 75 mg PO DAILY 06/04/16 [History] Allergies Amoxicillin Allergy (Severe, Verified 09/06/15 00:08) Anaphylaxis Penicillins Allergy (Severe, Verified 09/06/15 00:08) Anaphylaxis All Systems PM: A 10-system review of systems was performed and is negative for pertinent findings except as documented above in the HPI. - Constitutional Constitutional: night sweats, no chills, no fever(s) - EENT Eyes: no change in vision, no discharge, no pain, no photophobia Ears: no ear discharge, no ear pain, no tinnitus Nose, mouth and throat: nasal congestion, sinus pressure, no dysphagia, no nasal discharge, no neck pain, no sore throat - Cardiovascular Cardiovascular ROS IM: dyspnea, dyspnea on exertion, lightheadedness, no chest pain, no diaphoresis, no palpitations, no syncope - Respiratory Respiratory: cough, dyspnea, dyspnea on exertion, wheezing, excessive phlegm production, change in phlegm color, pain with cough - Gastrointestinal Gastrointestinal: no abdominal pain, no diarrhea, no hematemesis, no hematochezia, no melena, no nausea, no vomiting - Genitourinary Genitourinary: no change in urinary stream, no dysuria, no flank pain, no hematuria - Musculoskeletal Musculoskeletal ROS IM: no numbness, no tingling - Integumentary Integumentary IM: no rash, no unusual bruising - Neurological Neurological ROS: no confusion, no convulsions, no focal weakness, no numbness, no tingling, no tremor(s) - Hematologic/Lymphatic Hematologic/Lymphatic: no easy bruising - Constitutional Vitals: Temp Pulse Resp BP Pulse Ox 98.2 F 95 16 123/82 93 L 06/04/16 19:27 06/04/16 19:27 06/04/16 19:27 06/04/16 19:27 06/04/16 19:27 General appearance: Present: A&O X 3, pleasant, no acute distress - Head Head exam: Present: atraumatic, normocephalic - Eye Eye exam: Present: PERRL, conjuntiva pink, sclera anicteric Pupils: Present: PERRL - Neck Neck exam general surgery: Present: supple, trachea midline. Absent: lymphadenopathy - Respiratory Respiratory exam: Present: rhonchi, wheezes, tachypnea. Absent: accessory muscle use, rales - Cardiovascular Cardiovascular exam: Present: RRR, +S1, +S2. Absent: diastolic murmur, gallop, rubs, systolic murmur - GI/Abdominal GI/Abdominal exam: Present: normal bowel sounds, soft, no peritoneal signs. Absent: distended, tenderness - Extremities Exam Extremities exam: Present: warm, radial pulses palpable and symetrical. Absent : calf tenderness, cyanotic, pedal edema - Neurological Exam Neurological exam: Present: CN II-XII intact, oriented X3, no focal deficits. Absent: facial droop, speech deficit - Skin Skin exam: Present: dry, intact Internal Med - H&P Results - Labs CBC & Chem 7: 06/04/16 13:03 06/04/16 13:03 Labs: All Lab Results (24 Hours) 06/04/16 06/04/16 06/04/16 Range/Units 13:03 13:03 13:03 WBC 8.8 (4.3-11.1) K/mcL RBC 4.35 (3.82-4.97) M/mcL Hgb 12.0 (11.5-15.4) g/dL Hct 37.7 (35.3-44.9) % MCV 86.7 (83.0-100.0) fL MCH 27.6 L (28.0-33.3) pg MCHC 31.8 (31.6-35.5) g/dL RDW 15.7 H (11.5-14.5) % Plt Count 300 (140-400) K/mcL MPV 8.4 L (9.4-12.4) fL Immature Gran % 0.2 (0-4) % Seg Neutrophils % 50.5 % Lymphocytes % 31.6 % Monocytes % 7.4 % Eosinophils % 9.6 % Basophils % 0.7 % Neutrophils # 4.4 (1.6-8.9) K/mcL Lymphocytes # 2.8 (0.6-4.6) K/mcL Monocytes # 0.7 (0.0-1.3) K/mcL Eosinophils # 0.8 H (0.0-0.6) K/mcL Basophils # 0.1 (0.0-0.2) K/mcL PT (9.4-12.1) Seconds INR APTT (26.0-36.0) Seconds Sodium 137 (136-145) mEq/L Potassium 3.9 (3.5-4.5) mEq/L Chloride 108 (98-109) mEq/L Carbon Dioxide 24 (19-29) mEq/L BUN 9 (7-20) mg/dL Creatinine 0.71 (0.57-1.11) mg/dL Est GFR ( Amer) > 60 (> 60) Est GFR (Non-Af Amer) > 60 (> 60) BUN/Creatinine Ratio 13 (6-26) Glucose 94 (70-99) mg/dL Calculated Osmolality 282 (280-300) Lactic Acid (0.5-2.2) mmol/L Calcium 8.9 (8.6-10.8) mg/dL Phosphorus 2.9 (2.3-4.7) mg/dL Magnesium 1.8 (1.6-2.6) mg/dL Troponin I 0.01 (0-0.03) ng/mL Urine Color (Yellow) Urine Clarity (Clear) Urine pH (5.0-8.0) pH Units Ur Specific [place] (1.010-1.025) Urine Protein (Neg-Trace) mg/dL Urine Glucose (UA) (Normal) mg/dL Urine Ketones (Negative) mg/dL Urine Blood (Negative) Urine Nitrite (Negative) Urine Bilirubin (Negative) Urine Urobilinogen (Normal) mg/dL Ur Leukocyte Esterase (Negative) Ur Culture Indicated? (NO) 06/04/16 06/04/16 06/04/16 Range/Units 13:03 13:20 14:30 WBC (4.3-11.1) K/mcL RBC (3.82-4.97) M/mcL Hgb (11.5-15.4) g/dL Hct (35.3-44.9) % MCV (83.0-100.0) fL MCH (28.0-33.3) pg MCHC (31.6-35.5) g/dL RDW (11.5-14.5) % Plt Count (140-400) K/mcL MPV (9.4-12.4) fL Immature Gran % (0-4) % Seg Neutrophils % % Lymphocytes % % Monocytes % % Eosinophils % % Basophils % % Neutrophils # (1.6-8.9) K/mcL Lymphocytes # (0.6-4.6) K/mcL Monocytes # (0.0-1.3) K/mcL Eosinophils # (0.0-0.6) K/mcL Basophils # (0.0-0.2) K/mcL PT 11.6 (9.4-12.1) Seconds INR 1.1 APTT 30.4 (26.0-36.0) Seconds Sodium (136-145) mEq/L Potassium (3.5-4.5) mEq/L Chloride (98-109) mEq/L Carbon Dioxide (19-29) mEq/L BUN (7-20) mg/dL Creatinine (0.57-1.11) mg/dL Est GFR ( Amer) (> 60) Est GFR (Non-Af Amer) (> 60) BUN/Creatinine Ratio (6-26) Glucose (70-99) mg/dL Calculated Osmolality (280-300) Lactic Acid 1.0 (0.5-2.2) mmol/L Calcium (8.6-10.8) mg/dL Phosphorus (2.3-4.7) mg/dL Magnesium (1.6-2.6) mg/dL Troponin I (0-0.03) ng/mL Urine Color Yellow (Yellow) Urine Clarity Hazy A (Clear) Urine pH 6.5 (5.0-8.0) pH Units Ur Specific [place] 1.029 H (1.010-1.025) Urine Protein Trace (Neg-Trace) mg/dL Urine Glucose (UA) Normal (Normal) mg/dL Urine Ketones Negative (Negative) mg/dL Urine Blood Negative (Negative) Urine Nitrite Negative (Negative) Urine Bilirubin Negative (Negative) Urine Urobilinogen Normal (Normal) mg/dL Ur Leukocyte Esterase Negative (Negative) Ur Culture Indicated? NO (NO) - Diagnostic Studies Chest x-ray Additional comments: Chest X-Ray 06/04/16 12:53 IMPRESSION: Stable appearing chest without acute cardiopulmonary process. D/ / Denny Gregorio MD / Denny Gregorio MD Interpreting Provider: eDnny Gregorio MD <Juvenal Pavon - Last Filed: 06/05/16 02:22> Internal Medicine - H&P: HPI History of present illness: Ms. Parra is a 40 year old female All Systems PM: A 10-system review of systems was performed and is negative for pertinent findings except as documented above in the HPI. - Constitutional Vitals: Temp Pulse Resp BP Pulse Ox 98.0 F 99 16 141/93 94 L 06/04/16 23:09 06/04/16 23:09 06/04/16 23:09 06/04/16 23:09 06/04/16 23:09 Internal Med - H&P Results - Labs CBC & Chem 7: 06/04/16 13:03 06/04/16 13:03 - Attending Attestation I examined this patient and my medical decision-making was reviewed with the CONSTRUCTION PLANT OPERATOR/PA/Advanced Practice Nurse/Resident Physician. I agree with the documented findings, disposition and treatment plan as described except to the extent set forth below. I discussed the case with nurse practitioner Criselda Oakley, I examined the patient independently. I agree with Criselda's physical examination findings, assessment and plan. Briefly , patient with an asthma exacerbation, former smoker. Continue with nebulizer therapy, systemic steroids. Avoid NSAIDs. Patient denies history of prior intubations, she has pets at home and her is a smoker, she is exposed to smoke at home.
[2016-06-04] MEDS: *HR* HYDROcodone/Acet 5/325 mg TABLET PO PRN (20:24)
[2016-06-04] MEDS: Ipratropium/Albuterol Neb 3 ML IH SCH (21:14)
[2016-06-04] MEDS: Budesonide/Formoterol 160/4.5 MDI IH SCH (22:30)
[2016-06-04] MEDS: MethylPREDNISolone 40 MG/ML VIAL IVP SCH (23:48)
[2016-06-05] MEDS: Ipratropium/Albuterol Neb 3 ML IH SCH ×5 (03:12→22:18)
[2016-06-05] MEDS: *HR* HYDROcodone/Acet 5/325 mg TABLET PO PRN ×3 (03:27→17:57)
[2016-06-05] MEDS: Benzonatate 100 MG CAPSULE PO PRN ×2 (03:28→10:38)
[2016-06-05 04:24] LABS: Basophils % 0.1 %; Hematocrit 34.1 % (35.3-44.9); Hemoglobin 11.4 g/dL (11.5-15.4); Immature Granulocytes % 0.4 % (0-4); Lymphocytes # 0.8 K/mcL (0.6-4.6); Lymphocytes % 8.5 %; Mean Corpuscular HGB Conc 33.4 g/dL (31.6-35.5); Mean Corpuscular Hemoglobin 29.1 pg (28.0-33.3); Monocytes % 0.4 %; Neutrophils # 8.4 K/mcL (1.6-8.9); Platelet Count 272 K/mcL (140-400); Red Blood Count 3.92 M/mcL (3.82-4.97); Red Cell Distribution Width 15.9 % (11.5-14.5); Segmented Neutrophils % 90.6 %
[2016-06-05 04:47] LABS: BUN/Creatinine Ratio 13 (6-26); Blood Urea Nitrogen 9 mg/dL (7-20); Calcium 8.7 mg/dL (8.6-10.8); Carbon Dioxide 17 mEq/L (19-29); Chloride 107 mEq/L (98-109); Glucose 199 mg/dL (70-99); Osmolality,Calculated 288 (280-300); Potassium 3.8 mEq/L (3.5-4.5); Sodium 137 mEq/L (136-145); eGFR For African Americans > 60 (> 60); eGFR For Non-African Americans > 60 (> 60)
[2016-06-05] MEDS: *HR* Heparin 5,000 UNIT/ML VIAL SQ SCH ×2 (06:17→17:54)
--- NOTE | 2016-06-05 06:56 | Electrocardiograph Report ---
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
[2016-06-05] MEDS: MethylPREDNISolone 40 MG/ML VIAL IVP SCH ×3 (07:56→23:26)
[2016-06-05] MEDS: Famotidine 20 MG TABLET PO SCH (07:56)
[2016-06-05] MEDS ORDERED: *HR* Dextrose 50 % in Water (Syg) 50 ML SYRINGE IVP PRN (09:08)
[2016-06-05] MEDS ORDERED: Dextrose Gel 15 GM PO PRN ×2 (09:08)
[2016-06-05 10:19] LABS: Hemoglobin A1C 5.1 %
[2016-06-05] MEDS: Budesonide/Formoterol 160/4.5 MDI IH SCH ×2 (10:51→22:18)
[2016-06-05] MEDS: Insulin LISPRO 300 UNITS/3 ML VIAL SQ SCH ×2 (11:39→17:49)
--- NOTE | 2016-06-05 18:39 | Internal Med Progress Note ---
Date of Encounter: 06/05/16 Time of Encounter: 14:30 - Assessment and plan (1) Asthma with exacerbation Current Visit: No Status: Acute Assessment and plan: Patient states she is feeling better but not yet back to her baseline. On examination, patient with mild to moderate respiratory distress and decreased breath sounds throughout especially in the posterior lung [place]. Patient with a productive cough. We will continue to treat and possibly discharge tomorrow pending clinical outcomes. Of note, she does not have insurance and states that she has to pay $224 a month for her Symbicort and to albuterol. Of note, because she is having to use to albuterol per month, her asthma is not well controlled. We will consider adding another controller medication, we will bring social science teacher on board to assist with cost offset. Chest x-ray negative. ITS Impressions Chest X-Ray 06/04/16 12:53 IMPRESSION: Stable appearing chest without acute cardiopulmonary process. D/ / Denny Gregorio MD / Denny Gregorio MD Interpreting Provider: Denny Gregorio MD Qualifiers: Asthma severity: unspecified severity Qualified Code(s): J45.901 - Unspecified asthma with (acute) exacerbation (2) Hyperglycemia Current Visit: Yes Status: Acute Assessment and plan: Likely secondary to stress and steroids. A1c 5.1 so no diagnosis of diabetes. Will continue sliding scale while admitted. (3) DVT prophylaxis Current Visit: No Status: Acute Assessment and plan: Subcutaneous heparin (4) Former tobacco use Current Visit: Yes Status: Chronic Assessment and plan: Patient smoked up until last year. Her still smokes but outside. - Subjective Interval history: Patient is seen and examined. On examination, patient sitting upright in bed conversing with her daughter. Patient complaining of chest and rib pain with coughing. She states her cough is now productive. She continues to endorse shortness of breath above her norm. She is endorsing a normal appetite. - Constitutional Vitals: Temp Pulse Resp BP Pulse Ox 97.7 F 88 16 145/90 97 06/05/16 15:23 06/05/16 15:23 06/05/16 15:23 06/05/16 15:23 06/05/16 15:23 General appearance: Present: mild distress, A&O X 3, pleasant, answers questions appropriately - Head Head exam: Present: atraumatic, normocephalic - Eye Eye exam: Present: PERRL, conjuntiva pink, sclera anicteric Pupils: Present: PERRL - Neck Neck exam general surgery: Present: supple, trachea midline. Absent: lymphadenopathy - Respiratory Respiratory exam: Present: accessory muscle use, decreased breath sounds, prolonged expiratory phase, respiratory distress, wheezes. Absent: rales, rhonchi - Cardiovascular Cardiovascular exam: Present: RRR, +S1, +S2. Absent: diastolic murmur, gallop, rubs, systolic murmur - GI/Abdominal GI/Abdominal exam: Present: normal bowel sounds, soft, no peritoneal signs. Absent: distended, tenderness - Extremities Exam Extremities exam: Present: warm, radial pulses palpable and symetrical. Absent : calf tenderness, cyanotic, pedal edema - Neurological Exam Neurological exam: Present: alert, CN II-XII intact, normal gait, oriented X3, no focal deficits, strengths equal and symetr throughout. Absent: pronater drift, facial droop, speech deficit - Skin Skin exam: Present: dry, intact, normal color, warm Internal Medicine: Result - Labs CBC & Chem 7: 06/05/16 03:50 06/05/16 03:50 Labs: Short CBC 06/05/16 Range/Units 03:50 WBC 9.3 (4.3-11.1) K/mcL Hgb 11.4 L (11.5-15.4) g/dL Hct 34.1 L (35.3-44.9) % Plt Count 272 (140-400) K/mcL Neutrophils # 8.4 (1.6-8.9) K/mcL BMP 06/05/16 03:50 Sodium 137 Potassium 3.8 Chloride 107 Carbon Dioxide 17 L BUN 9 Creatinine 0.72 Glucose 199 H Calcium 8.7 - ABG Interpretation ABG results: PT/INR, D-dimer PT 11.6 Seconds (9.4-12.1) 06/04/16 13:03 Consult Discharge Plan - Plan Referrals: Rolando Varela MD [Primary Care Provider] -
[2016-06-05] MEDS ORDERED: Insulin LISPRO 300 UNITS/3 ML VIAL SQ SCH (21:00)
[2016-06-06] MEDS: Ipratropium/Albuterol Neb 3 ML IH SCH ×2 (04:09→08:41)
[2016-06-06] MEDS: *HR* Heparin 5,000 UNIT/ML VIAL SQ SCH (06:12)
[2016-06-06] MEDS: Ibuprofen 400 MG TABLET PO PRN ×2 (06:22→13:27)
[2016-06-06] MEDS: MethylPREDNISolone 40 MG/ML VIAL IVP SCH (07:53)
[2016-06-06] MEDS: Famotidine 20 MG TABLET PO SCH (07:53)
[2016-06-06] MEDS: Insulin LISPRO 300 UNITS/3 ML VIAL SQ SCH ×2 (07:53→13:24)
[2016-06-06] MEDS: Budesonide/Formoterol 160/4.5 MDI IH SCH (08:41)
--- NOTE | 2016-06-06 13:56 | Discharge Summary ---
Date of Encounter: 06/06/16 Time of Encounter: 15:00 - Discharge Diagnosis (1) Asthma with exacerbation Priority: Primary Status: Resolved Comments: Patient denies shortness of breath above her normal day of discharge. Her asthma is not well controlled given that she is using to [place] poppers per month, started on Spiriva, renal social worker help with resources Qualifiers: Asthma severity: unspecified severity Qualified Code(s): J45.901 - Unspecified asthma with (acute) exacerbation (2) Hyperglycemia Priority: Primary Status: Acute Comments: A1c checked at 5.1%. No diagnosis of diabetes. Hyperglycemic secondary to steroids (3) DVT prophylaxis Priority: Primary Status: Acute Comments: Subcutaneous heparin while admitted (4) Former tobacco use Priority: Secondary Status: Chronic Comments: Patient has not smoked since last year. Her still smokes but he is outside. - Discharge Medications Prescriptions: Albuterol Sulfate [Proair Hfa] 2 puff IH Q4H PRN #1 hfa.aer.ad PRN Reason: Shortness Of Breath Benzonatate [Tessalon] 100 mg PO TID PRN #30 capsule PRN Reason: Cough Budesonide/Formoterol 160/4.5 [Symbicort 160/4.5] 2 puff IH BID #1 inhaler GuaiFENesin ER [Mucinex] 600 mg PO BID PRN #30 tbbp.12hr PRN Reason: Congestion PredniSONE 10 mg PO DAILY #41 tablet Tiotropium [Spiriva] 18 mcg IH 0700 #1 capsule Home Medications: Citalopram [CeleXA] 40 mg PO DAILY 01/05/16 [History] Biotin 1 mg PO DAILY 06/04/16 [History] Ranitidine HCl [Zantac 75] 75 mg PO DAILY 06/04/16 [History] Albuterol Sulfate [Proair Hfa] 2 puff IH Q4H PRN #1 hfa.aer.ad 06/06/16 [Rx] Benzonatate [Tessalon] 100 mg PO TID PRN #30 capsule 06/06/16 [Rx] Budesonide/Formoterol 160/4.5 [Symbicort 160/4.5] 2 puff IH BID #1 inhaler 06/06 [Rx] GuaiFENesin ER [Mucinex] 600 mg PO BID PRN #30 tbbp.12hr 06/06/16 [Rx] PredniSONE 10 mg PO DAILY #41 tablet 06/06/16 [Rx] Tiotropium [Spiriva] 18 mcg IH 0700 #1 capsule 06/06/16 [Rx] Allergies/Adverse Reactions: Allergies Amoxicillin Allergy (Severe, Verified 09/06/15 00:08) Anaphylaxis Penicillins Allergy (Severe, Verified 09/06/15 00:08) Anaphylaxis Date of admission: 06/04/16 16:14 Primary care physician: Rolando Varela Consults: 06/05/16 18:42 Consult to [employer] [CONS] Routine Reason for SW Consult: no insurance need to add another controller asthma med ; please help with resources Discharging clinician: Emilee Day Anticipated date of discharge: 06/06/16 - Patient Status Disposition: Home, Self-Care Condition: Good Functional capacity at discharge: independent ambulation Overall status at discharge: patient is progressing back to baseline - Discharge Instructions Instructions: Albuterol (By breathing), Tiotropium (By breathing), Budesonide/ Formoterol (By breathing), Asthma (GEN), How to Stop Smoking (GEN), Chronic Obstructive Pulmonary Disease (GEN), How to Stop Smoking, [place] [employer] (GEN) Follow Up With: Rolando Varela MD [Primary Care Provider] - 06/13/16 9:00 am Forms: Work/School Release Additional Instructions: Follow up with primary care provider as scheduled - Diet and Activity Activity: increase activity as tolerated Diet: regular diet Hospital course: Ms. Parra is a 40 year old female with past medical history of asthma, kidney stones, prior tobacco abuse. Patient presented to the emergency room for chief complaint cough, congestion, and wheezing 3 days. Patient also endorsed increased sputum productive with thick green mucus. Patient complaining of rib pain due to excessive coughing and woke up twice in the middle the night stating she could not breathe. Patient stating she was taking her inhaler and nebulized treatments at home as well as [id number] Mucinex without relief of her symptoms. Patient also reports occasional lightheadedness, headache. Workup in the emergency department unremarkable. Chest x-ray negative. Patient was admitted to the hospitalist service for further evaluation and management of her asthma with acute exacerbation. Her steroids cause her to be hyperglycemic and she was treated with insulin during this admission. A1c 5.1% so no diagnosis of diabetes. She was admitted and observed over the course of 3 days and on day of discharge, she denied shortness of breath above her norm. Urinalysis negative. Blood cultures negative. Of note, patient is on Symbicort and albuterol at home but she states that she uses to albuterol inhalers every month which suggests that her asthma is not well controlled. She was started on Spiriva. As she is a self-pay, renal social worker was brought on board to assist her with obtaining this prescription. She was discharged home in stable condition with close outpatient follow-up recommended. ITS Impressions Chest X-Ray 06/04/16 12:53 IMPRESSION: Stable appearing chest without acute cardiopulmonary process. D/ / Denny Gregorio MD / Denny Gregorio MD Interpreting Provider: Denny Gregorio MD - Time Spent with Patient Total time spent providing and/or coordinating discharge services: - Constitutional Vitals: Temp Pulse Resp BP Pulse Ox 98.3 F 77 14 126/84 97 06/06/16 11:00 06/06/16 11:00 06/06/16 11:00 06/06/16 11:00 06/06/16 11:00 General appearance: Present: A&O X 3, pleasant, no acute distress, answers questions appropriately - Head Head exam: Present: atraumatic, normocephalic - Eye Eye exam: Present: PERRL, conjuntiva pink, sclera anicteric Pupils: Present: PERRL - Neck Neck exam general surgery: Present: supple, trachea midline. Absent: lymphadenopathy - Respiratory Respiratory exam: Present: decreased breath sounds, prolonged expiratory phase, wheezes. Absent: accessory muscle use, rales, rhonchi - Cardiovascular Cardiovascular exam: Present: RRR, +S1, +S2. Absent: diastolic murmur, gallop, rubs, systolic murmur - GI/Abdominal GI/Abdominal exam: Present: normal bowel sounds, soft, no peritoneal signs. Absent: distended, tenderness - Extremities Exam Extremities exam: Present: warm, radial pulses palpable and symetrical. Absent : calf tenderness, cyanotic, pedal edema - Neurological Exam Neurological exam: Present: alert, CN II-XII intact, normal gait, oriented X3, no focal deficits, strengths equal and symetr throughout. Absent: pronater drift, facial droop, speech deficit - Skin Skin exam: Present: dry, intact, normal color, warm - VTE Documentation of Mechanical Device: Graduated compression elastic hosiery
[2016-06-06 14:59] VITALS: BP 133/89
== END 2016-06-06 16:08 | disposition home or self-care (01) ==
LOC: EMEROO 12:19 → 3BNU 12:19
PROVIDERS: ADMIT Nurse Practitioner Family; ATTEND Nurse Practitioner Family

== ENCOUNTER 2016-07-26 12:18 | Observation (INO) ==
[2016-07-26] MEDS ORDERED: Ipratropium/Albuterol Neb 3 ML IH ONE ×2 (12:25→14:43)
[2016-07-26 13:27] LABS: Basophils % 0.4 %; Eosinophils # 0.5 K/mcL (0.0-0.6); Eosinophils % 4.8 %; Hematocrit 38.6 % (35.3-44.9); Hemoglobin 12.3 g/dL (11.5-15.4); Immature Granulocytes % 0.4 % (0-4); Lymphocytes # 1.3 K/mcL (0.6-4.6); Lymphocytes % 12.7 %; Mean Corpuscular HGB Conc 31.9 g/dL (31.6-35.5); Mean Corpuscular Hemoglobin 27.4 pg (28.0-33.3); Mean Platelet Volume 8.2 fL (9.4-12.4); Monocytes # 0.6 K/mcL (0.0-1.3); Neutrophils # 7.8 K/mcL (1.6-8.9); Platelet Count 312 K/mcL (140-400); Red Blood Count 4.49 M/mcL (3.82-4.97); Red Cell Distribution Width 15.4 % (11.5-14.5); Segmented Neutrophils % 75.7 %
[2016-07-26 13:41] LABS: BUN/Creatinine Ratio 18 (6-26); Blood Urea Nitrogen 12 mg/dL (7-20); Calcium 9.6 mg/dL (8.6-10.8); Carbon Dioxide 23 mEq/L (19-29); Chloride 105 mEq/L (98-109); Glucose 100 mg/dL (70-99); Osmolality,Calculated 286 (280-300); Potassium 3.6 mEq/L (3.5-4.5); Sodium 138 mEq/L (136-145); eGFR For African Americans > 60 (> 60); eGFR For Non-African Americans > 60 (> 60)
[2016-07-26] MEDS ORDERED: predniSONE 20 MG TABLET PO ONE (14:43)
[2016-07-26] MEDS ORDERED: 0.9 % Sodium Chloride 1,000 ML IVC ONE (15:53)
--- NOTE | 2016-07-26 17:14 | Emergency Department Note ---
Disposition Clinical Impression: Bronchitis with bronchospasm Dyspnea Qualifiers: Dyspnea type: shortness of breath Qualified Code(s): R06.02 - Shortness of breath Disposition: Admitted As Inpatient Condition: Fair Time of Disposition: 19:26 SOB HPI - General Chief Complaint: ED Shortness of Breath/Dyspnea Stated Complaint: ROSY Time Seen by Provider: 07/26/16 14:37 Source: patient Limitations: no limitations Nursing Notes Reviewed: Yes Vital Signs Reviewed: Yes - History of Present Illness 4-year-old with history of asthma presents ED because of today's worsening dyspnea. She has had a cough productive of yellow sputum along with worsening dyspnea. She has been using her home albuterol with only marginal improvement. No fevers or chills. She does complain of pain on both sides of her chest with deep breathing. Pt Subjective Complaint: shortness of breath, cough Onset (ago): day(s) Context: recent illness Severity: moderate Consistency/Duration: gradually worsening Improves with: nothing Worsens with: nothing Known history of: asthma Associated symptoms: Reports: sputum production Treatment prior to arrival: none Cough present: Yes - Related Data Home Medications Medication Instructions Recorded Confirmed Citalopram [CeleXA] 40 mg PO DAILY 01/05/16 06/04/16 Biotin 1 mg PO DAILY 06/04/16 06/04/16 Ranitidine HCl [Zantac 75] 75 mg PO DAILY 06/04/16 06/04/16 Previous Rx's Medication Instructions Recorded Albuterol Sulfate [Proair Hfa] 2 puff IH Q4H PRN #1 hfa.aer.ad 06/06/16 Benzonatate [Tessalon] 100 mg PO TID PRN #30 capsule 06/06/16 Budesonide/Formoterol 160/4.5 2 puff IH BID #1 inhaler 06/06/16 [Symbicort 160/4.5] GuaiFENesin ER [Mucinex] 600 mg PO BID PRN #30 tbbp.12hr 06/06/16 Tiotropium [Spiriva] 18 mcg IH 0700 #1 capsule 06/06/16 predniSONE [PredniSONE] 10 mg PO DAILY #41 tablet 06/06/16 Allergies Allergy/AdvReac Type Severity Reaction Status Date / Time Amoxicillin Allergy Severe Anaphylaxis Verified 09/06/15 00:08 Penicillins Allergy Severe Anaphylaxis Verified 09/06/15 00:08 All systems ED: reviewed and negative except as stated. Constitutional: Denies: fever, chills Eyes: Denies: eye pain ENT ED: Denies: congestion Cardiovascular: Denies: palpitations, dyspnea on exertion Respiratory: Reports: cough, dyspnea, wheezes Gastrointestinal: Reports: nausea. Denies: abdominal pain, vomiting Genitourinary: Denies: urgency, dysuria Musculoskeletal: Denies: back pain Neurological: Denies: headache, weakness Past Medical History - Past Medical History Attestation: Yes The following information was validated with the patient. Medical history: Reports: asthma, kidney stones Surgical history: Reports: Psychiatric history: Reports: no psych history - Social History Smoking Status: Former smoker Smokeless Tobacco Status: No Alcohol use: Reports: rarely Drug use: Reports: none Physical Exam - General Limitations: no limitations General appearance: alert - Head Head exam: atraumatic - Eye Eye exam: Present: normal appearance - ENT ENT exam: normal exam, normal oropharynx - Neck Neck exam: Present: normal inspection - Chest Chest inspection: Present: normal inspection, symmetric chest wall rise - Respiratory Respiratory exam: Present: wheezes, other (TAchypneic) - Cardiovascular Cardiovascular exam: Present: regular rate, tachycardia - Abdominal Exam Abdominal exam: Present: soft, Non-Tender - Expanded Lower Extremity Exam Lower leg exam: Absent: tenderness, swelling, palpable cord Ankle exam: Absent: tenderness Neurovascular/Tendon exam: Present: normal capillary refill - Neurological Exam Neurological exam: Present: alert, oriented X3 - Psychiatric Psychiatric exam: Present: normal affect, normal mood - Skin Skin exam: Present: warm, dry Course - Reevaluation(s) Reevaluation #1: Awaiting peak flows Still with wheezing but does feel better, better air movement on exam. Coarse rhonhci in the left base. Time: 17:18 Reevaluation #2: Peak flows of 300 L/min which is 74% of predicted. Still with very coarse breath sounds in both bases. Still with moderate subjective dyspnea with short distance ambulation. Time: 17:42 Reevaluation #3: Further albuterol and Mucomyst with minimal production of her cough and still no significant clinical improvement. Short duration ambulation and her oxygen saturation drops and she is very dyspneic, had a return to the bed. We will go ahead and admit. She will need percussive therapy, aggressive aerosols and if this does not seem to improve, maybe even bronchoscopy. Time: 18:40 Additional Reevaluation(s): 19:24 D/W Dr. Ashby tp admit, requested telemetry Vital Signs Temperature 98.2 F 07/26/16 12:21 Pulse Rate 107 07/26/16 12:21 Respiratory Rate 30 07/26/16 12:21 Blood Pressure 141/72 07/26/16 12:21 O2 Sat by Pulse Oximetry 97 07/26/16 12:21 Temperature 98.2 F 07/26/16 12:21 Pulse Rate 116 07/26/16 19:56 Respiratory Rate 18 07/26/16 20:20 Blood Pressure 158/92 07/26/16 20:20 O2 Sat by Pulse Oximetry 97 07/26/16 19:56 Oxygen Delivery Oxygen Delivery Room Air Shortness of Breath/Dyspnea - Lab Data Result diagrams: 07/26/16 13:02 07/26/16 13:02 Lab Results 07/26/16 07/26/16 07/26/16 Range/Units 13:02 13:02 13:02 WBC 10.3 (4.3-11.1) K/mcL RBC 4.49 (3.82-4.97) M/mcL Hgb 12.3 (11.5-15.4) g/dL Hct 38.6 (35.3-44.9) % MCV 86.0 (83.0-100.0) fL MCH 27.4 L (28.0-33.3) pg MCHC 31.9 (31.6-35.5) g/dL RDW 15.4 H (11.5-14.5) % Plt Count 312 (140-400) K/mcL MPV 8.2 L (9.4-12.4) fL Immature Gran % 0.4 (0-4) % Seg Neutrophils % 75.7 % Lymphocytes % 12.7 % Monocytes % 6.0 % Eosinophils % 4.8 % Basophils % 0.4 % Neutrophils # 7.8 (1.6-8.9) K/mcL Lymphocytes # 1.3 (0.6-4.6) K/mcL Monocytes # 0.6 (0.0-1.3) K/mcL Eosinophils # 0.5 (0.0-0.6) K/mcL Basophils # 0.0 (0.0-0.2) K/mcL Sodium 138 (136-145) mEq/L Potassium 3.6 (3.5-4.5) mEq/L Chloride 105 (98-109) mEq/L Carbon Dioxide 23 (19-29) mEq/L BUN 12 (7-20) mg/dL Creatinine 0.68 (0.57-1.11) mg/dL Est GFR ( Amer) > 60 (> 60) Est GFR (Non-Af Amer) > 60 (> 60) BUN/Creatinine Ratio 18 (6-26) Glucose 100 H (70-99) mg/dL Calculated Osmolality 286 (280-300) Calcium 9.6 (8.6-10.8) mg/dL Troponin I 0.00 (0-0.03) ng/mL B-Natriuretic Peptide (0-100) pg/mL 07/26/16 Range/Units 13:02 WBC (4.3-11.1) K/mcL RBC (3.82-4.97) M/mcL Hgb (11.5-15.4) g/dL Hct (35.3-44.9) % MCV (83.0-100.0) fL MCH (28.0-33.3) pg MCHC (31.6-35.5) g/dL RDW (11.5-14.5) % Plt Count (140-400) K/mcL MPV (9.4-12.4) fL Immature Gran % (0-4) % Seg Neutrophils % % Lymphocytes % % Monocytes % % Eosinophils % % Basophils % % Neutrophils # (1.6-8.9) K/mcL Lymphocytes # (0.6-4.6) K/mcL Monocytes # (0.0-1.3) K/mcL Eosinophils # (0.0-0.6) K/mcL Basophils # (0.0-0.2) K/mcL Sodium (136-145) mEq/L Potassium (3.5-4.5) mEq/L Chloride (98-109) mEq/L Carbon Dioxide (19-29) mEq/L BUN (7-20) mg/dL Creatinine (0.57-1.11) mg/dL Est GFR ( Amer) (> 60) Est GFR (Non-Af Amer) (> 60) BUN/Creatinine Ratio (6-26) Glucose (70-99) mg/dL Calculated Osmolality (280-300) Calcium (8.6-10.8) mg/dL Troponin I (0-0.03) ng/mL B-Natriuretic Peptide 29 (0-100) pg/mL - EKG Data EKG attestation: Yes I reviewed and interpreted this EKG. EKG results narrative: Sinus tachycardia with a rate of 105. Electrical indices are within normal limits. [place] is normal. Nonspecific T-wave flattening. No other acute abdomen on inspection.
[2016-07-26] MEDS ORDERED: Acetylcysteine 10% 2 ML INHSOL IH STA (17:56)
[2016-07-26] MEDS ORDERED: Albuterol 2.5 MG/3 ML NEBULIZER IH ONE ×2 (17:58→19:24)
[2016-07-26] MEDS ORDERED: Doxycycline 100 MG CAPSULE PO ONE (19:24)
[2016-07-26] MEDS ORDERED: Acetaminophen 325 MG TABLET PO ONE (21:05)
[2016-07-26] MEDS ORDERED: Ondansetron 4 MG/2 ML VIAL IVP PRN (21:06)
[2016-07-26] MEDS ORDERED: Ondansetron 4 MG/2 ML VIAL ONE (21:11)
[2016-07-26] MEDS ORDERED: Naloxone 0.4 MG/ML INJ IVP PRN (21:50)
[2016-07-26] MEDS ORDERED: Ipratropium/Albuterol Neb 3 ML IH PRN (21:55)
--- NOTE | 2016-07-26 21:56 | Internal Med History&Physical ---
Date of Encounter: 07/26/16 Time of Encounter: 20:40 Assessment and Plan (1) Asthma with exacerbation Current visit: No Status: Resolved Patient has history of asthma. Not well controlled. With acute exacerbation after URI symptoms. - Continue steroid, bronchodilator - Oxygen supportive treatment - Closer monitor pulse oximeter - Add inhaled steroid and long-acting beta agonist (symbicort) - Social service consult for long-term management because patient has no insurance. Qualifiers: Asthma severity: severe persistent Qualified Code(s): J45.51 - Severe persistent asthma with (acute) exacerbation (2) Bronchitis Current visit: Yes Status: Acute Symptomatic treatment (3) DVT prophylaxis Current visit: No Status: Acute Lovenox subcutaneously (4) URI (upper respiratory infection) Current visit: Yes Status: Acute Supportive treatment and symptomatic treatment. Qualifiers: URI type: unspecified viral URI Qualified Code(s): J06.9 - Acute upper respiratory infection, unspecified; B97.89 - Other viral agents as the cause of diseases classified elsewhere Internal Medicine - H&P: HPI Chief complaint: SOB Admitted From: Home Plans for Post Hospital Care: Home History of present illness: Ms. Parra is a 40 year old female admitted for shortness of breath for 2 days. Patient has a history of asthma. She is on albuterol inhaler when necessary. Patient said that the asthma bothers her almost every day, and 3-4 times during night every week. She was hospitalized recently for asthma exacerbation. Patient has no insurance, she had no other asthma medication to take. Since 2 days ago, she started having a runny nose and sneezing, mild nonproductive cough, headache, nausea and vomited 4 times. The vomiting are her stomach content, no blood in it. Patient has mild sore throat, which she thought is from cough. Patient has increased the shortness of breath in these 2 days. She cannot breathe and came to emergency room today. The patient was treated with magnesium sulfate and prednisone by mouth in ER. She was admitted as asthma exacerbation. I discussed the CODE STATUS with patient. She is a full code. Past Med Surg Social Fam HX - Past Medical History Medical history: asthma, kidney stones Psychiatric history: no psych history - Past Surgical History Surgical History: - Social History Smoking Status: Former smoker Smokeless Tobacco Status: No Alcohol use: rarely Drug use: none - Family History Father Living Status: Still Living Hx Family Neuromuscular Disorders: Yes (MS) Mother Family Member Ethnicity: Non- Living Status: Still Living Hx Family Cardiac Disorders: Yes (HYPERTENSION.) Hx Family Respiratory Disorders: No Hx Family Cancer: No Hx Family GI Disorders: No Hx Family Endocrine Disorder: Yes (DM) Hx Family Neuromuscular Disorders: No Hx Family Neurologic Disorders: No Hx Family HEENT Disorders: No Hx Family Autoimmune Disorders: No Internal Medicine - H&P: Meds Citalopram [CeleXA] 40 mg PO DAILY 01/05/16 [History] Biotin 1 mg PO DAILY 06/04/16 [History] Ranitidine HCl [Zantac 75] 75 mg PO DAILY 06/04/16 [History] Albuterol Sulfate [Proair Hfa] 2 puff IH Q4H PRN #1 hfa.aer.ad 06/06/16 [Rx] Benzonatate [Tessalon] 100 mg PO TID PRN #30 capsule 06/06/16 [Rx] Budesonide/Formoterol 160/4.5 [Symbicort 160/4.5] 2 puff IH BID #1 inhaler 06/06 [Rx] GuaiFENesin ER [Mucinex] 600 mg PO BID PRN #30 tbbp.12hr 06/06/16 [Rx] Tiotropium [Spiriva] 18 mcg IH 0700 #1 capsule 06/06/16 [Rx] predniSONE [PredniSONE] 10 mg PO DAILY #41 tablet 06/06/16 [Rx] Allergies Amoxicillin Allergy (Severe, Verified 09/06/15 00:08) Anaphylaxis Penicillins Allergy (Severe, Verified 09/06/15 00:08) Anaphylaxis All Systems PM: A 10-system review of systems was performed and is negative for pertinent findings except as documented above in the HPI. - Constitutional Vitals: Temp Pulse Resp BP Pulse Ox 97.4 F L 112 18 124/74 96 07/26/16 21:46 07/26/16 21:46 07/26/16 21:46 07/26/16 21:46 07/26/16 21:46 General appearance: Present: mild distress, A&O X 3, answers questions appropriately - Head Head exam: Present: atraumatic, normocephalic - Eye Eye exam: Present: PERRL, conjuntiva pink, sclera anicteric Pupils: Present: PERRL - Neck Neck exam general surgery: Present: supple, trachea midline. Absent: lymphadenopathy Additional comments: No tonsil enlargement - Respiratory Respiratory exam: Present: CTAB, wheezes (Diffuse wheezes bilaterally). Absent : accessory muscle use, rales, rhonchi - Cardiovascular Cardiovascular exam: Present: RRR, +S1, +S2. Absent: diastolic murmur, gallop, rubs, systolic murmur - GI/Abdominal GI/Abdominal exam: Present: normal bowel sounds, soft, no peritoneal signs. Absent: distended, tenderness - Extremities Exam Extremities exam: Present: warm, radial pulses palpable and symetrical. Absent : calf tenderness, cyanotic, pedal edema - Neurological Exam Neurological exam: Present: CN II-XII intact, oriented X3, no focal deficits. Absent: pronater drift, facial droop, speech deficit - Skin Skin exam: Present: dry, intact Internal Med - H&P Results - Labs CBC & Chem 7: 07/26/16 13:02 07/26/16 13:02
[2016-07-26] MEDS ORDERED: *HR* OxyCODONE/APAP 5/325 TABLET PO ONE (22:24)
[2016-07-26] MEDS: Ipratropium/Albuterol Neb 3 ML IH SCH (23:05)
[2016-07-27] MEDS: methylPREDNISolone 125 MG/2 ML VIAL IVP SCH ×3 (00:53→16:57)
[2016-07-27] MEDS: Ipratropium/Albuterol Neb 3 ML IH SCH ×6 (03:43→23:58)
[2016-07-27 04:43] LABS: Basophils % 0.1 %; Hematocrit 34.4 % (35.3-44.9); Hemoglobin 11.2 g/dL (11.5-15.4); Immature Granulocytes % 0.4 % (0-4); Lymphocytes # 0.7 K/mcL (0.6-4.6); Lymphocytes % 6.9 %; Mean Corpuscular HGB Conc 32.6 g/dL (31.6-35.5); Mean Corpuscular Hemoglobin 27.9 pg (28.0-33.3); Mean Corpuscular Volume 85.6 fL (83.0-100.0); Mean Platelet Volume 8.6 fL (9.4-12.4); Monocytes # 0.1 K/mcL (0.0-1.3); Monocytes % 1.1 %; Neutrophils # 8.7 K/mcL (1.6-8.9); Platelet Count 281 K/mcL (140-400); Red Blood Count 4.02 M/mcL (3.82-4.97); Red Cell Distribution Width 15.9 % (11.5-14.5); Segmented Neutrophils % 91.5 %
[2016-07-27 04:54] LABS: BUN/Creatinine Ratio 13 (6-26); Blood Urea Nitrogen 8 mg/dL (7-20); Calcium 8.9 mg/dL (8.6-10.8); Carbon Dioxide 17 mEq/L (19-29); Chloride 108 mEq/L (98-109); Glucose 150 mg/dL (70-99); Magnesium 2.2 mg/dL (1.6-2.6); Osmolality,Calculated 285 (280-300); Potassium 3.4 mEq/L (3.5-4.5); Sodium 137 mEq/L (136-145); eGFR For African Americans > 60 (> 60); eGFR For Non-African Americans > 60 (> 60)
[2016-07-27] MEDS: *HR* Enoxaparin 40 MG/0.4 ML SYRINGE SQ SCH (05:42)
[2016-07-27] MEDS: Acetaminophen 325 MG TABLET PO PRN (05:46)
[2016-07-27] MEDS: Budesonide/Formoterol 160/4.5 MDI IH SCH ×2 (07:37→19:58)
[2016-07-27] MEDS: Acetaminophen/Aspirin/Caffeine TABLET PO PRN ×2 (10:19→16:57)
--- NOTE | 2016-07-27 12:47 | Electrocardiograph Report ---
[address] [place], [place] [address] Test Date: 2016-07-26 Pat Name: Kim Parra Department: 102 Room: 2A Gender: F Kiln [employer]over: Am : 1975 Requested By: Ron Greene Order Number: [id number] Reading MD: Ron Lee Measurements Intervals [place] Rate: 105 P: 60 NM: 149 QRS: 40 QRSD: 70 T: -6 QT: 314 QTc: 375 Interpretive Statements SINUS TACHYCARDIA POSSIBLE LEFT ATRIAL ENLARGEMENT NONSPECIFIC ST \T\ T-WAVE ABNORMALITY ABNORMAL RHYTHM ECG Electronically Signed On 07-27-2016 12:45:51 EDT by Ron Lee
--- NOTE | 2016-07-27 13:05 | Internal Med Progress Note ---
Date of Encounter: 07/27/16 Time of Encounter: 10:30 - Assessment and plan (1) Asthma with exacerbation Current Visit: No Status: Resolved Assessment and plan: Assessment exacerbation, continue with systemic steroids, nebulizer treatment. Patient is a former smoker, she stopped a year ago, her still smokes, and apparently he was dealing with some viral infection recently. Monitor oxygen saturation. Possible discharge tomorrow if stable. Discussed with patient, she agrees with plan. Qualifiers: Asthma severity: severe persistent Qualified Code(s): J45.51 - Severe persistent asthma with (acute) exacerbation (2) DVT prophylaxis Current Visit: No Status: Acute - Subjective Interval history: First encounter with the patient, history of asthma, still complaining of wheezing, denies fever. - Constitutional Vitals: Temp Pulse Resp BP Pulse Ox 98.2 F 115 16 136/89 91 07/27/16 11:06 07/27/16 11:06 07/27/16 11:06 07/27/16 11:06 07/27/16 11:06 General appearance: Present: mild distress, A&O X 3, answers questions appropriately - Head Head exam: Present: atraumatic, normocephalic - Eye Eye exam: Present: PERRL, conjuntiva pink, sclera anicteric Pupils: Present: PERRL - Neck Neck exam general surgery: Present: supple, trachea midline. Absent: lymphadenopathy - Respiratory Respiratory exam: Present: wheezes. Absent: accessory muscle use, rales, rhonchi - Cardiovascular Cardiovascular exam: Present: RRR, +S1, +S2. Absent: diastolic murmur, gallop, rubs, systolic murmur - GI/Abdominal GI/Abdominal exam: Present: normal bowel sounds, soft, no peritoneal signs. Absent: distended, tenderness - Extremities Exam Extremities exam: Present: warm, radial pulses palpable and symetrical. Absent : calf tenderness, cyanotic, pedal edema - Neurological Exam Neurological exam: Present: CN II-XII intact, oriented X3, no focal deficits. Absent: pronater drift, facial droop, speech deficit - Skin Skin exam: Present: dry, intact Internal Medicine: Result - Labs CBC & Chem 7: 07/27/16 04:27 07/27/16 04:27 Labs: Short CBC 07/27/16 Range/Units 04:27 WBC 9.5 (4.3-11.1) K/mcL Hgb 11.2 L (11.5-15.4) g/dL Hct 34.4 L (35.3-44.9) % Plt Count 281 (140-400) K/mcL Neutrophils # 8.7 (1.6-8.9) K/mcL BMP 07/27/16 04:27 Sodium 137 Potassium 3.4 L Chloride 108 Carbon Dioxide 17 L BUN 8 Creatinine 0.63 Glucose 150 H Calcium 8.9 Consult Discharge Plan - Plan Referrals: Rolando Varela MD [Primary Care Provider] -
[2016-07-28] MEDS: Acetaminophen 325 MG TABLET PO PRN ×3 (00:08→21:25)
[2016-07-28] MEDS: methylPREDNISolone 125 MG/2 ML VIAL IVP SCH ×3 (00:08→15:37)
[2016-07-28] MEDS: Ipratropium/Albuterol Neb 3 ML IH SCH ×5 (03:39→20:07)
[2016-07-28] MEDS: *HR* Enoxaparin 40 MG/0.4 ML SYRINGE SQ SCH (05:29)
[2016-07-28] MEDS: Budesonide/Formoterol 160/4.5 MDI IH SCH ×2 (07:39→20:07)
[2016-07-28] MEDS ORDERED: Albuterol 2.5 MG/3 ML NEBULIZER IH PRN (10:53)
--- NOTE | 2016-07-28 11:16 | Internal Med Progress Note ---
Date of Encounter: 07/28/16 Time of Encounter: 11:15 - Assessment and plan (1) Asthma with exacerbation Current Visit: No Status: Resolved Assessment and plan: Asthma exacerbation, continue with systemic steroids, nebulizer treatment. Patient is a former smoker, she stopped a year ago, her still smokes, and apparently he was dealing with some viral infection recently. Monitor oxygen saturation. Peak flow decreased, today is 250, personal best is 600. will monitor peak flow. Possible d/c tomorrow. Discussed with patient, she agrees with plan. Qualifiers: Asthma severity: severe persistent Qualified Code(s): J45.51 - Severe persistent asthma with (acute) exacerbation (2) DVT prophylaxis Current Visit: No Status: Acute - Subjective Interval history: , history of asthma, still complaining of wheezing, denies fever peak flow today 250. - Constitutional Vitals: Temp Pulse Resp BP Pulse Ox 98.6 F 104 18 143/88 95 07/28/16 07:27 07/28/16 07:27 07/28/16 07:27 07/28/16 07:27 07/28/16 07:27 General appearance: Present: mild distress, A&O X 3, answers questions appropriately - Head Head exam: Present: atraumatic, normocephalic - Eye Eye exam: Present: PERRL, conjuntiva pink, sclera anicteric Pupils: Present: PERRL - Neck Neck exam general surgery: Present: supple, trachea midline. Absent: lymphadenopathy - Respiratory Respiratory exam: Present: wheezes. Absent: accessory muscle use, rales, rhonchi - Cardiovascular Cardiovascular exam: Present: RRR, +S1, +S2. Absent: diastolic murmur, gallop, rubs, systolic murmur - GI/Abdominal GI/Abdominal exam: Present: normal bowel sounds, soft, no peritoneal signs. Absent: distended, tenderness - Extremities Exam Extremities exam: Present: warm, radial pulses palpable and symetrical. Absent : calf tenderness, cyanotic, pedal edema - Neurological Exam Neurological exam: Present: CN II-XII intact, oriented X3, no focal deficits. Absent: pronater drift, facial droop, speech deficit - Skin Skin exam: Present: dry, intact Internal Medicine: Result - Labs CBC & Chem 7: 07/27/16 04:27 07/27/16 04:27 Consult Discharge Plan - Plan Referrals: Rolando Varela MD [Primary Care Provider] - 08/04/16 10:30 am (Please follow up as schedule..)
[2016-07-28] MEDS ORDERED: Bisacodyl 10 MG RECTAL SUPPOSITORY RC PRN (23:52)
[2016-07-29] MEDS ORDERED: MOM Conc 10 ML UD.LIQ PO ONE
[2016-07-29] MEDS: methylPREDNISolone 125 MG/2 ML VIAL IVP SCH ×2 (00:13→08:28)
[2016-07-29] MEDS: Ipratropium/Albuterol Neb 3 ML IH SCH ×4 (00:13→10:58)
[2016-07-29] MEDS: *HR* Enoxaparin 40 MG/0.4 ML SYRINGE SQ SCH (05:45)
[2016-07-29 06:25] VITALS: BP 141/93
[2016-07-29] MEDS: Budesonide/Formoterol 160/4.5 MDI IH SCH (07:45)
--- NOTE | 2016-07-29 10:32 | Discharge Summary ---
Date of Encounter: 07/29/16 Time of Encounter: 10:20 - Discharge Diagnosis (1) DVT prophylaxis Priority: Secondary Status: Acute (2) Former tobacco use Priority: Secondary Status: Chronic (3) Asthma with exacerbation Priority: Primary Status: Resolved Qualifiers: Asthma severity: severe persistent Qualified Code(s): J45.51 - Severe persistent asthma with (acute) exacerbation - Discharge Medications Prescriptions: Fluticasone/Salmeterol [Advair 250-50 Diskus] 1 each IH Q12H 14 Days Montelukast [Singulair] 10 mg PO DAILY 14 Days predniSONE [PredniSONE] 10 mg PO DAILY #45 tablet Home Medications: Albuterol Sulfate [Proair Hfa] 2 puff IH Q4H PRN #1 hfa.aer.ad 06/06/16 [Rx] Albuterol Neb [Proventil Neb] 2.5 mg IH Q4HR PRN 07/27/16 [History] Omeprazole Magnesium 20 mg PO DAILY 07/27/16 [History] Fluticasone/Salmeterol [Advair 250-50 Diskus] 1 each IH Q12H 14 Days 07/29/16 [ Rx] Montelukast [Singulair] 10 mg PO DAILY 14 Days 07/29/16 [Rx] predniSONE [PredniSONE] 10 mg PO DAILY #45 tablet 07/29/16 [Rx] Allergies/Adverse Reactions: Allergies Amoxicillin Allergy (Severe, Verified 07/27/16 10:21) See Comments CHILDHOOD REACTION UNKNOWN Penicillins Allergy (Severe, Verified 07/27/16 10:21) See Comments CHILDHOOD REACTION UNKNOWN Date of admission: 07/26/16 19:55 Primary care physician: Rolando Varela Consults: 07/26/16 21:52 Consult to Cost Accounting Clerk [CONS] Routine Reason for SW Consult: Pt has no insurance Discharging clinician: Juvenal Pavon Anticipated date of discharge: 07/29/16 - Patient Status Disposition: Home, Self-Care Condition: Fair Functional capacity at discharge: independent ambulation Overall status at discharge: patient is back to baseline - Discharge Instructions Follow Up With: Rolando Varela MD [Primary Care Provider] - 08/04/16 10:30 am (Please follow up as schedule..) Additional Instructions: Pulmonology follow up. - Diet and Activity Activity: increase activity as tolerated Diet: advance to your usual diet Interval History: Ms. Aida is a 40 year old female admitted for shortness of breath for 2 days. Patient has a history of asthma. She is on albuterol inhaler when necessary. Patient said that the asthma bothers her almost every day, and 3-4 times during night every week. She was hospitalized recently for asthma exacerbation. Patient has no insurance, she had no other asthma medication to take. Since 2 days ago, she started having a runny nose and sneezing, mild nonproductive cough, headache, nausea and vomited 4 times. The vomiting are her stomach content, no blood in it. Patient has mild sore throat, which she thought is from cough. Patient has increased the shortness of breath in these 2 days. She cannot breathe and came to emergency room today. The patient was treated with magnesium sulfate and prednisone by mouth in ER. She was admitted as asthma exacerbation. I discussed the CODE STATUS with patient. She is a full code. Hospital course: Ms. Parra is a 40 year old female admitte due t to asthma exacerbation, improved clinically still not at baseline, no fever, no pneumonia. will d/c her today with po steroids tapering dose and both sam and laba with nebulizer prn at home, will follow up with pcp and pulmonology, avoidance of fumes exposure was strongly recommended. - Time Spent with Patient Total time spent providing and/or coordinating discharge services: - Constitutional Vitals: Temp Pulse Resp BP Pulse Ox 98.4 F 93 18 141/93 97 07/29/16 06:24 07/29/16 06:24 07/29/16 07:45 07/29/16 06:24 07/29/16 07:45 General appearance: Present: mild distress, A&O X 3, answers questions appropriately - Head Head exam: Present: atraumatic, normocephalic - Eye Eye exam: Present: PERRL, conjuntiva pink, sclera anicteric Pupils: Present: PERRL - Neck Neck exam general surgery: Present: supple, trachea midline. Absent: lymphadenopathy - Respiratory Respiratory exam: Present: wheezes. Absent: accessory muscle use, rales, rhonchi - Cardiovascular Cardiovascular exam: Present: RRR, +S1, +S2. Absent: diastolic murmur, gallop, rubs, systolic murmur - GI/Abdominal GI/Abdominal exam: Present: normal bowel sounds, soft, no peritoneal signs. Absent: distended, tenderness - Extremities Exam Extremities exam: Present: warm, radial pulses palpable and symetrical. Absent : calf tenderness, cyanotic, pedal edema - Neurological Exam Neurological exam: Present: CN II-XII intact, oriented X3, no focal deficits. Absent: pronater drift, facial droop, speech deficit - Skin Skin exam: Present: dry, intact
== END 2016-07-29 11:23 | disposition home or self-care (01) ==
LOC: 2ANU 12:18 → EMEROO 12:18 → 2ANU 20:45
PROVIDERS: ADMIT Pediatrics; ATTEND Internal Medicine

== ENCOUNTER 2016-12-03 09:42 | Inpatient (IN) ==
[2016-12-03] MEDS ORDERED: Ipratropium/Albuterol Neb 3 ML IH ONE ×2 (10:20→12:21)
[2016-12-03] MEDS ORDERED: methylPREDNISolone 125 MG/2 ML VIAL IVP ONE (10:20)
--- NOTE | 2016-12-03 10:27 | Emergency Department Note ---
Disposition Clinical Impression: Bronchopneumonia, Asthma exacerbation Disposition: Admitted As Inpatient Condition: Good Referrals: Rolando Varela MD [Primary Care Provider] - Forms: ED Satisfaction Letter Time of Disposition: 12:20 SOB HPI - General Chief Complaint: ED Shortness of Breath/Dyspnea Stated Complaint: bronchitis Time Seen by Provider: 12/03/16 10:11 Source: patient, family Limitations: no limitations Nursing Notes Reviewed: Yes Vital Signs Reviewed: Yes - History of Present Illness 41-year-old female presents emergency room for shortness of breath. Patient has a history of asthma. Was seen here 2 days ago and diagnosed with a acute asthma bronchitis. Was started on Zithromax and prednisone. She states she has gotten worse. She is unable to walk from room to room without getting shortness of breath. She denies fevers. She does admit to a bronchospastic cough. No significant sputum production. No lower leg pain or swelling. She does breathing treatments at home without any relief. She has a long history of asthma and has had prior admissions for her asthma. She denies any intubations. Pt Subjective Complaint: shortness of breath, cough - Related Data Home Medications Medication Instructions Recorded Confirmed Albuterol Neb [Proventil Neb] 2.5 mg IH Q4HR PRN 07/27/16 07/27/16 Omeprazole Magnesium 20 mg PO DAILY 07/27/16 07/27/16 Previous Rx's Medication Instructions Recorded Albuterol Sulfate [Proair Hfa] 2 puff IH Q4H PRN #1 hfa.aer.ad 06/06/16 Fluticasone/Salmeterol [Advair 1 each IH Q12H 14 Days blst.w.dev 07/29/16 250-50 Diskus] Montelukast [Singulair] 10 mg PO DAILY 14 Days tablet 07/29/16 predniSONE [PredniSONE] 10 mg PO DAILY #45 tablet 07/29/16 Azithromycin [Zithromax] 250 mg PO DAILY #6 tablet 12/01/16 predniSONE [PredniSONE] 10 mg PO DAILY #21 tablet 12/01/16 Allergies Allergy/AdvReac Type Severity Reaction Status Date / Time Amoxicillin Allergy Severe See Verified 07/27/16 10:21 Comments Penicillins Allergy Severe See Verified 07/27/16 10:21 Comments Review of Systems: Gen.: No fevers or chills or new weakness Eyes: Denies double vision or any vision changes Ears: Denies any otalgia Pharynx: Denies sore throat CV: Denies chest pain. Denies palpitations Respiratory: Positive shortness of breath and wheezing GI: Denies any nausea, vomiting, diarrhea, constipation. Denies abdominal pain Neuro: Denies any headache. No problems with ambulation. No numbness. Skin: Denies any rashes or abrasions Psych: Denies any depression or suicidal or homicidal ideation Musculoskeletal: Denies any arthralgias or myalgias Past Medical History - Past Medical History Medical history: Reports: asthma, kidney stones Surgical history: Reports: Psychiatric history: Reports: depression - Social History Smoking Status: Former smoker Smokeless Tobacco Status: No Alcohol use: Reports: rarely Drug use: Reports: none Physical Exam - General Limitations: no limitations General appearance: alert, in distress (Respiratory distress) - Head Head exam: atraumatic, normocephalic - Eye Eye exam: Present: normal appearance - ENT ENT exam: normal exam - Neck Neck exam: Present: normal inspection - Chest Chest inspection: Present: normal inspection - Respiratory Respiratory exam: Present: wheezes (Diffuse wheezing heard throughout both lung [place].), accessory muscle use, other (Tachypnea) - Cardiovascular Cardiovascular exam: Present: normal rhythm, tachycardia - Abdominal Exam Abdominal exam: Present: soft, Non-Tender, normal bowel sounds. Absent: tenderness - Extremities Exam Extremities exam: Present: normal inspection, full ROM. Absent: tenderness - Back Exam Back exam: Present: normal inspection - Neurological Exam Neurological exam: Present: alert, oriented X3 - Psychiatric Psychiatric exam: Present: anxious - Skin Skin exam: Present: warm, dry, intact Course Vital Signs Temperature 98.9 F 12/03/16 09:46 Pulse Rate 103 12/03/16 09:46 Respiratory Rate 22 12/03/16 09:46 Blood Pressure 147/105 12/03/16 09:46 O2 Sat by Pulse Oximetry 93 12/03/16 09:46 Temperature 98.9 F 12/03/16 09:46 Pulse Rate 100 12/03/16 11:59 Respiratory Rate 18 12/03/16 11:59 Blood Pressure 141/103 12/03/16 11:59 O2 Sat by Pulse Oximetry 98 12/03/16 11:59 Oxygen Delivery Oxygen Delivery Room Air Shortness of Breath/Dyspnea - [facility] Narrative Medical decision making narrative: Patient has evidence of bronchopneumonia on her CT chest. No evidence of pulmonary embolus. She is received numerous breathing treatments and was on a continuous nebulizer for a while in the ER. She still very wheezy. I gave her steroids. I have switched her antibiotics to Levaquin after consultation with the hospitalist. Her lab markers are stable. Patient needs to be admitted. - Differential Diagnosis Likely: asthma with exacerbation - Medical Records Medical records reviewed: Yes I reviewed the patient's medical records. - Lab Data Lab results reviewed: Yes I reviewed the patient's lab results. Result diagrams: 12/03/16 10:41 12/03/16 10:41 Lab Results 12/03/16 12/03/16 12/03/16 Range/Units 10:41 10:41 10:41 WBC 12.3 H (4.3-11.1) K/mcL RBC 4.25 (3.82-4.97) M/mcL Hgb 11.3 L (11.5-15.4) g/dL Hct 36.6 (35.3-44.9) % MCV 86.1 (83.0-100.0) fL MCH 26.6 L (28.0-33.3) pg MCHC 30.9 L (31.6-35.5) g/dL RDW 14.2 (11.5-14.5) % Plt Count 348 (140-400) K/mcL MPV 8.3 L (9.4-12.4) fL Immature Gran % 0.4 (0-4) % Seg Neutrophils % 73.6 % Lymphocytes % 15.1 % Monocytes % 5.7 % Eosinophils % 4.6 % Basophils % 0.6 % Neutrophils # 9.1 H (1.6-8.9) K/mcL Lymphocytes # 1.9 (0.6-4.6) K/mcL Monocytes # 0.7 (0.0-1.3) K/mcL Eosinophils # 0.6 (0.0-0.6) K/mcL Basophils # 0.1 (0.0-0.2) K/mcL D-Dimer (0-500) ng/mLFEU Sodium 140 (136-145) mEq/L Potassium 4.1 (3.5-4.5) mEq/L Chloride 106 (98-109) mEq/L Carbon Dioxide 23 (19-29) mEq/L BUN 11 (7-20) mg/dL Creatinine 0.71 (0.57-1.11) mg/dL Est GFR ( Amer) > 60 (> 60) Est GFR (Non-Af Amer) > 60 (> 60) BUN/Creatinine Ratio 15 (6-26) Glucose 92 (70-99) mg/dL Calculated Osmolality 289 (280-300) Calcium 9.3 (8.6-10.8) mg/dL Troponin I 0.01 (0-0.03) ng/mL 12/03/16 Range/Units 10:41 WBC (4.3-11.1) K/mcL RBC (3.82-4.97) M/mcL Hgb (11.5-15.4) g/dL Hct (35.3-44.9) % MCV (83.0-100.0) fL MCH (28.0-33.3) pg MCHC (31.6-35.5) g/dL RDW (11.5-14.5) % Plt Count (140-400) K/mcL MPV (9.4-12.4) fL Immature Gran % (0-4) % Seg Neutrophils % % Lymphocytes % % Monocytes % % Eosinophils % % Basophils % % Neutrophils # (1.6-8.9) K/mcL Lymphocytes # (0.6-4.6) K/mcL Monocytes # (0.0-1.3) K/mcL Eosinophils # (0.0-0.6) K/mcL Basophils # (0.0-0.2) K/mcL D-Dimer 601 H (0-500) ng/mLFEU Sodium (136-145) mEq/L Potassium (3.5-4.5) mEq/L Chloride (98-109) mEq/L Carbon Dioxide (19-29) mEq/L BUN (7-20) mg/dL Creatinine (0.57-1.11) mg/dL Est GFR ( Amer) (> 60) Est GFR (Non-Af Amer) (> 60) BUN/Creatinine Ratio (6-26) Glucose (70-99) mg/dL Calculated Osmolality (280-300) Calcium (8.6-10.8) mg/dL Troponin I (0-0.03) ng/mL - Radiology Data Radiology results reviewed: Yes I reviewed the patient's radiology results. - EKG Data EKG attestation: Yes I reviewed and interpreted this EKG. EKG results narrative: EKG shows a rate of 90. Normal sinus rhythm. Normal axis. CO interval 147. QRS 81. QTC 394. Critical Care Time Critical Care Time: Yes Total Critical Care Time: 35 Attestation: Critical care time spent and respiratory management with continuous nebulizers and workup of her shortness of breath.
[2016-12-03 10:57] LABS: Basophils # 0.1 K/mcL (0.0-0.2); Basophils % 0.6 %; Eosinophils # 0.6 K/mcL (0.0-0.6); Eosinophils % 4.6 %; Hematocrit 36.6 % (35.3-44.9); Hemoglobin 11.3 g/dL (11.5-15.4); Immature Granulocytes % 0.4 % (0-4); Lymphocytes # 1.9 K/mcL (0.6-4.6); Lymphocytes % 15.1 %; Mean Corpuscular HGB Conc 30.9 g/dL (31.6-35.5); Mean Corpuscular Hemoglobin 26.6 pg (28.0-33.3); Mean Corpuscular Volume 86.1 fL (83.0-100.0); Mean Platelet Volume 8.3 fL (9.4-12.4); Monocytes # 0.7 K/mcL (0.0-1.3); Monocytes % 5.7 %; Neutrophils # 9.1 K/mcL (1.6-8.9); Platelet Count 348 K/mcL (140-400); Red Blood Count 4.25 M/mcL (3.82-4.97); Red Cell Distribution Width 14.2 % (11.5-14.5); Segmented Neutrophils % 73.6 %
[2016-12-03 11:00] LABS: BUN/Creatinine Ratio 15 (6-26); Blood Urea Nitrogen 11 mg/dL (7-20); Calcium 9.3 mg/dL (8.6-10.8); Carbon Dioxide 23 mEq/L (19-29); Chloride 106 mEq/L (98-109); Glucose 92 mg/dL (70-99); Osmolality,Calculated 289 (280-300); Potassium 4.1 mEq/L (3.5-4.5); Sodium 140 mEq/L (136-145); eGFR For African Americans > 60 (> 60); eGFR For Non-African Americans > 60 (> 60)
[2016-12-03] MEDS ORDERED: Levofloxacin 750 MG/150 ML 750 MG/150 ML BAG IVPB ONE (12:16)
[2016-12-03] MEDS ORDERED: Ondansetron 4 MG/2 ML VIAL IVP PRN (12:21)
[2016-12-03] MEDS ORDERED: Naloxone 0.4 MG/ML INJ IVP PRN (12:22)
[2016-12-03] MEDS ORDERED: *HR* Morphine 2 MG/ML SYRINGE IVP PRN (12:22)
[2016-12-03] MEDS ORDERED: MOM Conc 10 ML UD.LIQ PO PRN (12:22)
--- NOTE | 2016-12-03 13:30 | Internal Med History&Physical ---
Date of Encounter: 12/03/16 Time of Encounter: 12:40 Assessment and Plan (1) SIRS (systemic inflammatory response syndrome) Current visit: Yes Status: Acute Pt does meet SIRS criteria with elevated WBC, Sinus tachycardia source of inf as Pneumonia Will admit the pt into Tele started her on empirical abx Levofloxacin will sent for sputum cx (2) Acute bronchopneumonia Current visit: Yes Status: Acute mostly bacterial Reviewed CXR - showing ptachy infiltrates in RLL and RUL Started on empirical abx Levofloxacin for atypical coverage (3) Asthma with exacerbation Current visit: No Status: Resolved Placed her on high dose IV steroids Solumedrol 40mg Q6hr + Duoneb Q4hr She is not hypoxic now on Mucinex Also resumed home INH steroids Also counseled to stay away from second hand smoking Encouraged to keep using peak flow meter at home Qualifiers: Asthma severity: severe persistent Qualified Code(s): J45.51 - Severe persistent asthma with (acute) exacerbation (4) DVT prophylaxis Current visit: No Status: Acute on Lovenox Internal Medicine - H&P: HPI Chief complaint: Shortness of breath Admitted From: Emergency Dept Plans for Post Hospital Care: Home History of present illness: Ms. Parra is a 41 year old female with known PMH of Moderate intermittent asthma who is Symbicort and Ventolin PRN at home, presented to our ER 3 days ago with worsening SOB and Cough with expectoration. She was sent home on Z pack and tapering PO steroids. Her symptoms has not improved, today she felt severe SOB and MARTINEZ, what made her come to ER again today. Pt denied any CP. Feels little better now with frequent Duoneb and IV steroids. No sick contacts.. Have second hand smoking exposure. Past Med Surg Social Fam HX - Past Medical History Medical history: asthma, kidney stones Psychiatric history: depression - Past Surgical History Surgical History: - Social History Smoking Status: Former smoker Smokeless Tobacco Status: No Alcohol use: rarely Drug use: none - Family History Father Family Member Ethnicity: Non- Living Status: Still Living Hx Family Cardiac Disorders: No Hx Family Respiratory Disorders: No Hx Family Cancer: No Hx Family GI Disorders: No Hx Family Endocrine Disorder: No Hx Family Neuromuscular Disorders: Yes (MS) Hx Family Neurologic Disorders: No Hx Family HEENT Disorders: No Hx Family Autoimmune Disorders: No Mother Family Member Ethnicity: Non- Living Status: Still Living Hx Family Cardiac Disorders: Yes (HYPERTENSION.) Hx Family Respiratory Disorders: No Hx Family Cancer: No Hx Family GI Disorders: No Hx Family Endocrine Disorder: Yes (DM) Hx Family Neuromuscular Disorders: No Hx Family Neurologic Disorders: No Hx Family HEENT Disorders: No Hx Family Autoimmune Disorders: No Internal Medicine - H&P: Meds Albuterol Sulfate [Proair Hfa] 2 puff IH Q4H PRN #1 hfa.aer.ad 06/06/16 [Rx] Ranitidine HCl [Zantac] 150 mg PO BID 12/03/16 [History] 3 Allergy/AdvReac Type Severity Reaction Status Date / Time Amoxicillin Allergy Severe See Verified 07/27/16 10:21 Comments Penicillins Allergy Severe See Verified 07/27/16 10:21 Comments All Systems PM: A 10-system review of systems was performed and is negative for pertinent findings except as documented above in the HPI. Review of systems: All the systems are reviewed everything is benign except the systems and symptoms I mentioned in the history of present illness - Constitutional Vitals: Temp Pulse Resp BP Pulse Ox 98.9 F 78 16 136/80 98 12/03/16 09:46 12/03/16 12:47 12/03/16 13:01 12/03/16 13:01 12/03/16 12:47 General appearance: Present: mild distress, A&O X 3, answers questions appropriately - Head Head exam: Present: atraumatic, normal inspection - Respiratory Respiratory exam: Present: decreased breath sounds, respiratory distress (mild) , wheezes (moderate to severe), tachypnea. Absent: rhonchi - Cardiovascular Cardiovascular exam: Present: +S1, +S2, tachycardia - GI/Abdominal GI/Abdominal exam: Present: soft. Absent: rebound, rigid, tenderness - Extremities Exam Extremities exam: Absent: calf tenderness, pedal edema, tenderness - Neurological Exam Neurological exam: Present: alert, oriented X3 - Psychiatric Psychiatric exam: Present: normal affect, normal mood Internal Med - H&P Results - Labs CBC & Chem 7: 12/03/16 10:41 12/03/16 10:41
[2016-12-03] MEDS: Acetaminophen 325 MG TABLET PO PRN (14:17)
[2016-12-03] MEDS: Ipratropium/Albuterol Neb 3 ML IH SCH ×3 (16:10→23:41)
[2016-12-03] MEDS: MethylPREDNISolone 40 MG/ML VIAL IVP SCH (17:42)
[2016-12-03] MEDS ORDERED: Acetaminophen/Aspirin/Caffeine TABLET PO PRN (18:46)
[2016-12-03] MEDS: Famotidine 20 MG TABLET PO SCH (19:47)
[2016-12-03] MEDS: Budesonide/Formoterol 160/4.5 MDI IH SCH (20:29)
[2016-12-03] MEDS: Ondansetron 4 MG/2 ML VIAL IVP PRN (21:39)
[2016-12-04] MEDS: MethylPREDNISolone 40 MG/ML VIAL IVP SCH ×5 (00:54→20:09)
[2016-12-04 01:47] LABS: Hematocrit 35.4 % (35.3-44.9); Hemoglobin 11.2 g/dL (11.5-15.4); Immature Granulocytes % 0.7 % (0-4); Immature Platelets 0.9 % (1.1-6.1); Lymphocytes # 0.8 K/mcL (0.6-4.6); Lymphocytes % 7.9 %; Mean Corpuscular HGB Conc 31.6 g/dL (31.6-35.5); Mean Corpuscular Hemoglobin 26.7 pg (28.0-33.3); Mean Corpuscular Volume 84.5 fL (83.0-100.0); Mean Platelet Volume 8.4 fL (9.4-12.4); Monocytes # 0.2 K/mcL (0.0-1.3); Monocytes % 2.4 %; Neutrophils # 8.6 K/mcL (1.6-8.9); Platelet Count 432 K/mcL (140-400); Red Blood Count 4.19 M/mcL (3.82-4.97)
[2016-12-04 02:13] LABS: BUN/Creatinine Ratio 14 (6-26); Blood Urea Nitrogen 10 mg/dL (7-20); Calcium 9.8 mg/dL (8.6-10.8); Carbon Dioxide 19 mEq/L (19-29); Chloride 105 mEq/L (98-109); Glucose 126 mg/dL (70-99); Osmolality,Calculated 283 (280-300); Potassium 3.9 mEq/L (3.5-4.5); Sodium 136 mEq/L (136-145); eGFR For African Americans > 60 (> 60); eGFR For Non-African Americans > 60 (> 60)
[2016-12-04] MEDS: *HR* HYDROcodone/Acet 5/325 mg TABLET PO PRN ×3 (02:42→15:49)
[2016-12-04] MEDS: Ipratropium/Albuterol Neb 3 ML IH SCH ×6 (04:39→23:44)
[2016-12-04] MEDS: *HR* Enoxaparin 40 MG/0.4 ML SYRINGE SQ SCH (05:38)
[2016-12-04] MEDS: Ondansetron 4 MG/2 ML VIAL IVP PRN (05:38)
--- NOTE | 2016-12-04 08:09 | Electrocardiograph Report ---
[address] [place], [place] [address] Test Date: 2016-12-03 Pat Name: Kim Parra Department: 102 Room: [facility] Gender: F Return Agent Airport: : [id number] Requested By: Jason Hilton Order Number: [id number] Reading MD: Dread Celestin MD Measurements Intervals [place] Rate: 90 P: 61 [place]: 147 QRS: 44 QRSD: 81 T: 20 QT: 347 QTc: 394 Interpretive Statements SINUS RHYTHM Electronically Signed On 12-04-2016 6:41:59 EDT by Dread Celestin MD
[2016-12-04] MEDS: Budesonide/Formoterol 160/4.5 MDI IH SCH ×2 (08:19→19:43)
[2016-12-04] MEDS: Famotidine 20 MG TABLET PO SCH ×2 (08:32→20:09)
[2016-12-04] MEDS: Levofloxacin 750 MG/150 ML 750 MG/150 ML BAG IVPB SCH (08:32)
--- NOTE | 2016-12-04 13:38 | Internal Med Progress Note ---
Date of Encounter: 12/04/16 Time of Encounter: 13:36 - Assessment and plan (1) Sepsis Status: Acute Assessment and plan: Patient presented with leukocytosis, tachycardia and tachypnea related to pneumonia. Lactic acid noted to be within normal limits. Continue IV antibiotics, remaining plan as below. Qualifiers: Sepsis type: sepsis due to unspecified organism Qualified Code(s): A41.9 - Sepsis, unspecified organism (2) Asthma with exacerbation Status: Acute Assessment and plan: Continues to have significant bilateral wheezing and rhonchi and some dyspnea. We will increase dose of IV steroids and continue scheduled bronchodilators along with Mucomyst inhalation and when necessary antitussives. IV antibiotics. Telemetry monitoring. Qualifiers: Asthma severity: moderate persistent Qualified Code(s): J45.41 - Moderate persistent asthma with (acute) exacerbation (3) Acute bronchopneumonia Status: Acute Assessment and plan: CT angiogram of chest shows no evidence of pulmonary embolism but shows bilateral patchy groundglass infiltrates in upper lobes and right lower lobe. Follow-up blood cultures and continue IV Levaquin. Improved leukocytosis. Preliminary sputum culture negative. - Subjective Interval history: Reports persistent cough and exertional dyspnea; no fever/chills, chest pain; - Constitutional Vitals: Temp Pulse Resp BP Pulse Ox 97.7 F 81 18 130/82 94 12/04/16 10:48 12/04/16 10:48 12/04/16 11:34 12/04/16 10:48 12/04/16 11:34 General appearance: Present: A&O X 3 (dyspneic on speaking long sentences and coughing), answers questions appropriately - Respiratory Respiratory exam: Present: rhonchi, wheezes (B/L diffuse wheezing and rhonchi). Absent: accessory muscle use, rales - Cardiovascular Cardiovascular exam: Present: RRR, +S1, +S2. Absent: diastolic murmur, gallop, rubs, systolic murmur - GI/Abdominal GI/Abdominal exam: Present: normal bowel sounds, soft, no peritoneal signs. Absent: distended, tenderness - Extremities Exam Extremities exam: Present: full ROM, warm, radial pulses palpable and symmetrical. Absent: calf tenderness, cyanotic, pedal edema Internal Medicine: Result - Labs CBC & Chem 7: 12/04/16 01:14 12/04/16 01:14 Labs: Short CBC 12/04/16 Range/Units 01:14 WBC 9.7 (4.3-11.1) K/mcL Hgb 11.2 L (11.5-15.4) g/dL Hct 35.4 (35.3-44.9) % Plt Count 432 H (140-400) K/mcL Neutrophils # 8.6 (1.6-8.9) K/mcL BMP 12/04/16 01:14 Sodium 136 Potassium 3.9 Chloride 105 Carbon Dioxide 19 BUN 10 Creatinine 0.73 Glucose 126 H Calcium 9.8 - ABG Interpretation ABG results: PT/INR, D-dimer D-Dimer 601 ng/mLFEU (0-500) H 12/03/16 10:41 Consult Discharge Plan - Plan Additional Instructions: F/up with PCP in 1-2 weeks Please return to ER if you notice any worsening symptoms, shortness of breath, or chest pain. Take medications as prescribed. Referrals: Rolando Varela MD [Primary Care Provider] - Prescriptions: Benzonatate [Tessalon] 200 mg PO TID PRN #30 capsule PRN Reason: Cough Levofloxacin [Levaquin] 750 mg PO DAILY 3 Days tablet predniSONE [PredniSONE] 60 mg PO DAILY 12 Days tablet
[2016-12-04] MEDS: Acetylcysteine 10% 2 ML INHSOL IH SCH ×4 (15:44→23:44)
[2016-12-04] MEDS: Benzonatate 100 MG CAPSULE PO PRN (18:51)
[2016-12-05] MEDS: Acetaminophen 325 MG TABLET PO PRN (00:42)
[2016-12-05] MEDS: Acetylcysteine 10% 2 ML INHSOL IH SCH ×6 (04:17→23:38)
[2016-12-05] MEDS: Ipratropium/Albuterol Neb 3 ML IH SCH ×6 (04:17→23:36)
[2016-12-05] MEDS: MethylPREDNISolone 40 MG/ML VIAL IVP SCH ×3 (04:41→22:11)
[2016-12-05] MEDS: *HR* Enoxaparin 40 MG/0.4 ML SYRINGE SQ SCH (06:33)
[2016-12-05] MEDS: Budesonide/Formoterol 160/4.5 MDI IH SCH ×2 (08:14→20:16)
[2016-12-05] MEDS: Levofloxacin 750 MG/150 ML 750 MG/150 ML BAG IVPB SCH (08:43)
[2016-12-05] MEDS: Famotidine 20 MG TABLET PO SCH ×2 (08:43→19:59)
[2016-12-05] MEDS: Ondansetron 4 MG/2 ML VIAL IVP PRN (11:50)
--- NOTE | 2016-12-05 12:03 | Internal Med Progress Note ---
Date of Encounter: 12/05/16 Time of Encounter: 12:02 - Assessment and plan (1) Sepsis Status: Acute Assessment and plan: Patient presented with leukocytosis, tachycardia and tachypnea related to pneumonia. Lactic acid noted to be within normal limits. Continue IV antibiotics, remaining plan as below. Qualifiers: Sepsis type: sepsis due to unspecified organism Qualified Code(s): A41.9 - Sepsis, unspecified organism (2) Asthma with exacerbation Status: Acute Assessment and plan: Improving slowly. Patient will benefit from another day of IV steroids. Continue IV steroids and continue scheduled bronchodilators along with Mucomyst inhalation and when necessary antitussives. IV antibiotics. Telemetry monitoring. Qualifiers: Asthma severity: moderate persistent Qualified Code(s): J45.41 - Moderate persistent asthma with (acute) exacerbation (3) Acute bronchopneumonia Status: Acute Assessment and plan: CT angiogram of chest shows no evidence of pulmonary embolism but shows bilateral patchy groundglass infiltrates in upper lobes and right lower lobe. Follow-up blood cultures and continue IV Levaquin. Improved leukocytosis. Preliminary sputum culture negative. - Subjective Interval history: Feels much better with improving cough and dyspnea; still has some exertional dyspnea but improving; no fever/chills; - Constitutional Vitals: Temp Pulse Resp BP Pulse Ox 98 F 100 18 124/67 95 12/05/16 11:53 12/05/16 11:53 12/05/16 11:53 12/05/16 11:53 12/05/16 11:53 General appearance: Present: A&O X 3, answers questions appropriately - Respiratory Respiratory exam: Present: CTAB, rhonchi (scattered rhonchi- significantly improved), wheezes (improved). Absent: accessory muscle use, rales - Cardiovascular Cardiovascular exam: Present: RRR, +S1, +S2. Absent: diastolic murmur, gallop, rubs, systolic murmur - GI/Abdominal GI/Abdominal exam: Present: normal bowel sounds, soft, no peritoneal signs. Absent: distended, tenderness Internal Medicine: Result - Labs CBC & Chem 7: 12/04/16 01:14 12/04/16 01:14 - ABG Interpretation ABG results: PT/INR, D-dimer D-Dimer 601 ng/mLFEU (0-500) H 12/03/16 10:41 Consult Discharge Plan - Plan Additional Instructions: F/up with PCP in 1-2 weeks Please return to ER if you notice any worsening symptoms, shortness of breath, or chest pain. Take medications as prescribed. Referrals: Rolando Varela MD [Primary Care Provider] - Prescriptions: Benzonatate [Tessalon] 200 mg PO TID PRN #30 capsule PRN Reason: Cough Levofloxacin [Levaquin] 750 mg PO DAILY 3 Days tablet predniSONE [PredniSONE] 60 mg PO DAILY 12 Days tablet
[2016-12-06] MEDS: Ipratropium/Albuterol Neb 3 ML IH SCH ×2 (03:54→07:42)
[2016-12-06] MEDS: Acetylcysteine 10% 2 ML INHSOL IH SCH ×2 (03:55→07:42)
[2016-12-06] MEDS: Benzonatate 100 MG CAPSULE PO PRN (04:34)
[2016-12-06] MEDS: MethylPREDNISolone 40 MG/ML VIAL IVP SCH (05:23)
[2016-12-06] MEDS: *HR* Enoxaparin 40 MG/0.4 ML SYRINGE SQ SCH (05:26)
[2016-12-06 07:06] VITALS: BP 132/89
[2016-12-06] MEDS: Budesonide/Formoterol 160/4.5 MDI IH SCH (07:41)
[2016-12-06] MEDS: Famotidine 20 MG TABLET PO SCH (09:16)
[2016-12-06] MEDS: Levofloxacin 750 MG/150 ML 750 MG/150 ML BAG IVPB SCH (10:09)
--- NOTE | 2016-12-06 10:41 | Discharge Summary ---
Date of Encounter: 12/06/16 Time of Encounter: 10:00 - Discharge Diagnosis (1) Sepsis Priority: Primary Status: Acute Qualifiers: Sepsis type: sepsis due to unspecified organism Qualified Code(s): A41.9 - Sepsis, unspecified organism (2) Asthma with exacerbation Priority: Primary Status: Acute Qualifiers: Asthma severity: moderate persistent Qualified Code(s): J45.41 - Moderate persistent asthma with (acute) exacerbation (3) Acute bronchopneumonia Priority: Primary Status: Acute - Discharge Medications Prescriptions: Benzonatate [Tessalon] 200 mg PO TID PRN #30 capsule PRN Reason: Cough Levofloxacin [Levaquin] 750 mg PO DAILY 3 Days tablet predniSONE [PredniSONE] 60 mg PO DAILY 12 Days tablet Home Medications: Albuterol Sulfate [Proair Hfa] 2 puff IH Q4H PRN #1 hfa.aer.ad 06/06/16 [Rx] Ranitidine HCl [Zantac] 150 mg PO BID 12/03/16 [History] Benzonatate [Tessalon] 200 mg PO TID PRN #30 capsule 12/06/16 [Rx] Ipratropium/Albuterol Neb [Duoneb] 3 ml IH [id number] inhsol 12/06/16 [Rx] Levofloxacin [Levaquin] 750 mg PO DAILY 3 Days tablet 12/06/16 [Rx] predniSONE [PredniSONE] 60 mg PO DAILY 12 Days tablet 12/06/16 [Rx] Allergies/Adverse Reactions: 3 Allergy/AdvReac Type Severity Reaction Status Date / Time Amoxicillin Allergy Severe See Verified 07/27/16 10:21 Comments Penicillins Allergy Severe See Verified 07/27/16 10:21 Comments Date of admission: 12/03/16 12:41 Primary care physician: Rolando Varela Discharging clinician: Mehnaz Tavarez Anticipated date of discharge: 12/06/16 - Patient Status Disposition: Home, Self-Care Condition: Good Functional capacity at discharge: independent ambulation Overall status at discharge: patient is progressing back to baseline - Discharge Instructions Follow Up With: Rolando Varela MD [Primary Care Provider] - Additional Instructions: F/up with PCP in 1-2 weeks Please return to ER if you notice any worsening symptoms, shortness of breath, or chest pain. Take medications as prescribed. - Diet and Activity Activity: resume usual activities as tolerated Diet: advance to your usual diet, regular diet Hospital course: Ms. Parra is a 41 year old female admitted with worsening shortness of breath, cough and wheezing. She was noted to have an acute exacerbation of asthma and was started on IV steroids, scheduled bronchodilators and supplemental oxygen. CT angiogram of chest showed no evidence of pulmonary embolism but showed patchy groundglass opacities in bilateral upper lobes and right lower lobe suggestive of atypical bronchopneumonia. She was started on IV Levaquin. Blood and sputum cultures remained negative. Patient's symptoms significantly improved on the above regimen and she is currently medically stable for discharge with oral steroids and antibiotics. - Time Spent with Patient Total time spent providing and/or coordinating discharge services: Greater than 30 minutes (45 min) - Constitutional Vitals: Temp Pulse Resp BP Pulse Ox 98.0 F 76 16 132/89 98 12/06/16 07:02 12/06/16 07:02 12/06/16 07:44 12/06/16 07:02 12/06/16 07:44 General appearance: Present: A&O X 3, answers questions appropriately - Respiratory Respiratory exam: Present: CTAB, wheezes (minimal end expiratory wheezing, much improved). Absent: accessory muscle use, rales, rhonchi - Cardiovascular Cardiovascular exam: Present: RRR, +S1, +S2. Absent: diastolic murmur, gallop, rubs, systolic murmur
== END 2016-12-06 11:08 | disposition home or self-care (01) | DRG 871 ==
LOC: EMEROO 09:42 → 3NENU 09:42 → SUATTDRO 12:41 → 3NENU 13:28
PROVIDERS: ADMIT Family Medicine; ATTEND Internal Medicine

== ENCOUNTER 2017-02-08 22:12 | Inpatient (IN) ==
[2017-02-08] MEDS ORDERED: Ipratropium/Albuterol Neb 3 ML ONE (22:23)
[2017-02-08] MEDS ORDERED: Ipratropium/Albuterol Neb 3 ML IH ONE (22:34)
[2017-02-08] MEDS ORDERED: methylPREDNISolone 125 MG/2 ML VIAL IVP ONE (22:34)
--- NOTE | 2017-02-08 22:38 | Emergency Department Note ---
Disposition Clinical Impression: HAP (hospital-acquired pneumonia) Acute asthma exacerbation Qualifiers: Asthma severity: moderate Disposition: Admitted As Inpatient Condition: Fair Time of Disposition: 00:38 General Adult HPI - General Chief complaint: ED Upper Respiratory Infection Stated complaint: cough,chest congestion,sob Time Seen by Provider: 02/08/17 22:34 Source: patient Limitations: no limitations Nursing Notes Reviewed: Yes Vital Signs Reviewed: Yes - History of Present Illness HPI Narrative: Mrs. Parra, a 41yo female, presents from home with difficulty breathing and overt wheezing. Patient has a history of asthma poorly controlled; she typically has exacerbations requiring ED visit and/or hospital admission 3-4 times per year with history of recurrent pneumonia. Last hospitalization was November of this year for pneumonia. Patient's symptoms began approximately one week ago with a cough. This progressed to a productive cough with green sputum. She acutely worsen last night which was not improved with her home albuterol nebulizer. She typically work today was in respiratory distress with mild exertion-walking. She has never previously required intubation. Pain Scale: 4 - Related Data Home Medications Medication Instructions Recorded Confirmed Ranitidine HCl [Zantac] 150 mg PO BID 12/03/16 12/03/16 Previous Rx's Medication Instructions Recorded Albuterol Sulfate [Proair Hfa] 2 puff IH Q4H PRN #1 hfa.aer.ad 06/06/16 Benzonatate [Tessalon] 200 mg PO TID PRN #30 capsule 12/06/16 Ipratropium/Albuterol Neb [Duoneb] 3 ml IH [id number] inhsol 12/06/16 Levofloxacin [Levaquin] 750 mg PO DAILY 3 Days tablet 12/06/16 predniSONE [PredniSONE] 60 mg PO DAILY 12 Days tablet 12/06/16 Allergies Allergy/AdvReac Type Severity Reaction Status Date / Time Amoxicillin Allergy Severe See Verified 02/08/17 22:17 Comments Penicillins Allergy Severe See Verified 02/08/17 22:17 Comments All systems ED: reviewed and negative except as stated. Review of Systems: As Per HPI Past Medical History - Past Medical History Medical history: Reports: asthma, kidney stones Surgical history: Reports: Psychiatric history: Reports: depression - Social History Smoking Status: Former smoker Smokeless Tobacco Status: No Alcohol use: Reports: rarely Drug use: Reports: none Physical Exam Vital Signs Reviewed General: Patient is alert, oriented. She is in mild respiratory distress- tachypnea, cardiac, accessory muscle usage. HEENT: No facial asymmetry. Head is normocephalic and atraumatic. Mucosa moist. Trachea midline. Cardiovascular: Heart current rate with regular rhythm without clicks, rubs, gallops, or murmurs. No JVD. PMI nondisplaced. Respiratory: Symmetric chest rise with good respiratory effort. Bilateral breath sounds have diffuse coarse wheeze with left basilar crackles. Abdomen: Bowel sounds present normoactive x-4 quadrants. Abdomen is soft, nondistended, and nontender. No organomegaly noted. Musculoskeletal: Spontaneously moving all extremities Neuro: GCS 15 Skin: Warm, dry, intact. Psych: Patient's affect is appropriate for situation. - General Limitations: no limitations General appearance: alert Course Course Narrative: Patient is SIRS (+)-tachypnea, tachycardia. No suspicion for sepsis - patient is alert, oriented, nontoxic, in mild respiratory distress, no fevers or chills , has what she describes as, "another bout of bad asthma and I probably have pneumonia." Patient presents in mild respiratory distress with a clinical acute exacerbation of asthma. Also suspect underlying pneumonia. Chest x-ray concerning for right middle lobe pneumonia. This correlates with my clinical findings and suspicions. Patient still has grossly audible wheeze after triple therapy of DuoNeb's. We will begin empiric IV antibiotics for healthcare associated pneumonia given the patient's hospitalization in November. Chest X-Ray 02/08/17 22:34 IMPRESSION: Loss of the silhouette of the right heart border suggests middle lobe disease, either atelectasis or pneumonia. D/ / Minesh Blair MD / Minesh Blair MD Interpreting Provider: Minesh Blair MD Vital Signs Temperature 98.5 F 02/08/17 22:15 Pulse Rate 116 02/08/17 22:15 Respiratory Rate 24 02/08/17 22:15 Blood Pressure 142/91 02/08/17 22:15 O2 Sat by Pulse Oximetry 95 02/08/17 22:15 Temperature 98.9 F 02/08/17 23:38 Pulse Rate 105 02/08/17 23:38 Respiratory Rate 22 02/08/17 23:38 Blood Pressure 126/97 02/08/17 23:38 O2 Sat by Pulse Oximetry 93 02/08/17 23:38 Oxygen Delivery Oxygen Delivery Room Air Medical Decision Making - Lab Data Result diagrams: 02/08/17 22:43 02/08/17 22:43 Lab Results 02/08/17 02/08/17 02/08/17 Range/Units 22:43 22:43 22:43 WBC 10.8 (4.3-11.1) K/mcL RBC 4.15 (3.82-4.97) M/mcL Hgb 11.2 L (11.5-15.4) g/dL Hct 34.8 L (35.3-44.9) % MCV 83.9 (83.0-100.0) fL MCH 27.0 L (28.0-33.3) pg MCHC 32.2 (31.6-35.5) g/dL RDW 14.7 H (11.5-14.5) % Plt Count 377 (140-400) K/mcL MPV 8.2 L (9.4-12.4) fL Immature Gran % 0.5 (0-4) % Seg Neutrophils % 72.8 % Lymphocytes % 16.4 % Monocytes % 5.7 % Eosinophils % 4.0 % Basophils % 0.6 % Neutrophils # 7.9 (1.6-8.9) K/mcL Lymphocytes # 1.8 (0.6-4.6) K/mcL Monocytes # 0.6 (0.0-1.3) K/mcL Eosinophils # 0.4 (0.0-0.6) K/mcL Basophils # 0.1 (0.0-0.2) K/mcL Immature Plt Fraction 1.0 L (1.1-6.1) % Sodium 141 (136-145) mEq/L Potassium 3.4 L (3.5-4.5) mEq/L Chloride 107 (98-109) mEq/L Carbon Dioxide 23 (19-29) mEq/L BUN 9 (7-20) mg/dL Creatinine 0.75 (0.57-1.11) mg/dL Est GFR ( Amer) > 60 (> 60) Est GFR (Non-Af Amer) > 60 (> 60) BUN/Creatinine Ratio 12 (6-26) Glucose 99 (70-99) mg/dL Calculated Osmolality 291 (280-300) Lactic Acid 1.1 (0.5-2.2) mmol/L Calcium 9.5 (8.6-10.8) mg/dL Troponin I (0-0.03) ng/mL B-Natriuretic Peptide (0-100) pg/mL 02/08/17 02/08/17 Range/Units 22:43 22:43 WBC (4.3-11.1) K/mcL RBC (3.82-4.97) M/mcL Hgb (11.5-15.4) g/dL Hct (35.3-44.9) % MCV (83.0-100.0) fL MCH (28.0-33.3) pg MCHC (31.6-35.5) g/dL RDW (11.5-14.5) % Plt Count (140-400) K/mcL MPV (9.4-12.4) fL Immature Gran % (0-4) % Seg Neutrophils % % Lymphocytes % % Monocytes % % Eosinophils % % Basophils % % Neutrophils # (1.6-8.9) K/mcL Lymphocytes # (0.6-4.6) K/mcL Monocytes # (0.0-1.3) K/mcL Eosinophils # (0.0-0.6) K/mcL Basophils # (0.0-0.2) K/mcL Immature Plt Fraction (1.1-6.1) % Sodium (136-145) mEq/L Potassium (3.5-4.5) mEq/L Chloride (98-109) mEq/L Carbon Dioxide (19-29) mEq/L BUN (7-20) mg/dL Creatinine (0.57-1.11) mg/dL Est GFR ( Amer) (> 60) Est GFR (Non-Af Amer) (> 60) BUN/Creatinine Ratio (6-26) Glucose (70-99) mg/dL Calculated Osmolality (280-300) Lactic Acid (0.5-2.2) mmol/L Calcium (8.6-10.8) mg/dL Troponin I 0.00 (0-0.03) ng/mL B-Natriuretic Peptide 66 (0-100) pg/mL - EKG Data EKG #1 EKG attestation: Yes I reviewed and interpreted this EKG. EKG results narrative: EKG dated 02/08/17 at 22:28 interpreted as sinus tachycardia with a rate of 106. Normal intervals of purulent 21, QRS 85, QT/QTC 325/37. Normal axis. Baseline artifact. Nonspecific ST-T changes. Compared to previous dated 2016 showing no acute ischemic changes comparison. Attestation Statement - Attestation Attestation: I, Victoriano Steiner MD, personally evaluated this patient and discussed their management with the resident physician. I reviewed the resident's note and agree with the documented findings, medical decision making, and plan of care. 41-year-old female with history of asthma presents to the emergency department with a complaint of increased wheezing and shortness of breath over the past week but acutely worse over the past 24 hours. She has had a productive cough with thick green sputum. Subjective fever. She tried to work this evening but was unable to due to her shortness of breath. On examination patient is a well-developed well-nourished female in mild respiratory distress. She is alert and oriented 3. There is no cyanosis or diaphoresis. Chest is nontender to palpation. Breath sounds are decreased bilaterally with diffuse tight bilateral inspiratory and expiratory wheezing. Heart tachycardic and regular. Abdomen is soft and nontender with normal bowel sounds. Labs reviewed. Chest x-ray shows right middle lobe pneumonia. Patient received DuoNeb treatments and Solu-Medrol with minimal improvement. The hospitalist, Dr. Echevarria, was consulted and accepted admission of the patient.
[2017-02-08 22:50] LABS: Basophils # 0.1 K/mcL (0.0-0.2); Basophils % 0.6 %; Eosinophils # 0.4 K/mcL (0.0-0.6); Hematocrit 34.8 % (35.3-44.9); Hemoglobin 11.2 g/dL (11.5-15.4); Immature Granulocytes % 0.5 % (0-4); Lymphocytes # 1.8 K/mcL (0.6-4.6); Lymphocytes % 16.4 %; Mean Corpuscular HGB Conc 32.2 g/dL (31.6-35.5); Mean Corpuscular Volume 83.9 fL (83.0-100.0); Mean Platelet Volume 8.2 fL (9.4-12.4); Monocytes # 0.6 K/mcL (0.0-1.3); Monocytes % 5.7 %; Neutrophils # 7.9 K/mcL (1.6-8.9); Platelet Count 377 K/mcL (140-400); Red Blood Count 4.15 M/mcL (3.82-4.97); Red Cell Distribution Width 14.7 % (11.5-14.5); Segmented Neutrophils % 72.8 %
[2017-02-08 23:01] LABS: BUN/Creatinine Ratio 12 (6-26); Blood Urea Nitrogen 9 mg/dL (7-20); Calcium 9.5 mg/dL (8.6-10.8); Carbon Dioxide 23 mEq/L (19-29); Chloride 107 mEq/L (98-109); Glucose 99 mg/dL (70-99); Osmolality,Calculated 291 (280-300); Potassium 3.4 mEq/L (3.5-4.5); Sodium 141 mEq/L (136-145); eGFR For African Americans > 60 (> 60); eGFR For Non-African Americans > 60 (> 60)
[2017-02-09] MEDS ORDERED: Vancomycin 1,750 MG in D5% in Water 500 ML IVPB STA (00:25)
[2017-02-09] MEDS ORDERED: Cefepime HCl 2,000 MG in D5% in Water (Mini-Bag+) 100 ML IVPB STA (00:25)
[2017-02-09] MEDS ORDERED: Levofloxacin 750 MG/150 ML 750 MG/150 ML BAG IVPB ONE (00:26)
[2017-02-09] MEDS ORDERED: Cefepime HCl 2,000 MG in Water for inj. (sterile) 20 ML IVP STA (00:48)
[2017-02-09] MEDS ORDERED: Naloxone 0.4 MG/ML INJ IVP PRN (00:52)
[2017-02-09] MEDS ORDERED: Ondansetron 4 MG/2 ML VIAL IVP PRN (00:52)
--- NOTE | 2017-02-09 00:58 | Internal Med History&Physical ---
Date of Encounter: 02/09/17 Time of Encounter: 00:45 Assessment and Plan (1) Acute asthma exacerbation Current visit: Yes Status: Acute Acute respiratory failure secondary to acute asthma exacerbation and healthcare associated pneumonia, present on admission Continue DuoNeb breathing treatment, empiric IV antibiotics, IV Solu-Medrol, O2 via NC Incentive spirometry Chest x-ray - right middle lobe pneumonia WBC - 10.8 Lactic acid - 1.1 Troponin - 0.00 BNP - 66 EKG - sinus tachycardia with no acute ST-T changes Cardiac telemetry, pulse ox, labs in a.m., monitor closely Qualifiers: Asthma severity: moderate Asthma persistence: unspecified Qualified Code( s): J45.901 - Unspecified asthma with (acute) exacerbation (2) HCAP (healthcare-associated pneumonia) Current visit: Yes Status: Acute Healthcare associated pneumonia, present on admission, likely bacterial - second episode of pneumonia in 2 months Continue empiric IV Levaquin, IV Vancomycin, IV Cefepime DuoNeb breathing treatment Chest x-ray - right middle lobe pneumonia Cultures - pending Legionella antigen - pending Lactic acid - 1.1 Pulse ox, cardiac telemetry, monitor closely (3) Former tobacco use Current visit: Yes Status: Chronic History of tobacco abuse, patient states she quit about 2 years ago (4) DVT prophylaxis Current visit: Yes Status: Acute Heparin subcutaneous Internal Medicine - H&P: HPI Chief complaint: Shortness of breath, cough Admitted From: Emergency Dept Plans for Post Hospital Care: Home History of present illness: Ms. Parra is a 41 year old female with past medical history of asthma and GERD. Patient presents to ED with complaints of shortness of breath and worsening cough. Examined in the ED. Patient is awake and alert. Not in any distress. Able to provide all history. No family members at bedside. Patient states she developed shortness of breath and cough about one week ago. Symptoms have gradually worsened. She states her is productive with yellow colored sputum. Over the past 24 hours, the shortness of breath has worsened. Also complains of wheezing. Worse with exertion. She has tried to use her nebulizer breathing treatments but this has not helped. She denies chest pain or fever. Denies palpitations or headache or dizziness. Denies abdominal pain or vomiting or diarrhea. No alleviating factors. She decided to come to the ED because of worsening symptoms. States her symptoms are severe. Patient states she was treated for pneumonia about 2 months ago. 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 She states she stopped smoking about 2 years ago. No other associated symptoms. No other acute complaints. Initial workup in the ED is significant for hypoxia and right middle lobe pneumonia seen on chest x-ray. Although labs are within normal limits. Patient is being admitted for acute asthma exacerbation and for pneumonia. We will continue DuoNeb breathing treatment and IV antibiotics. Patient has been explained about her condition and plan of care in detail. She understood and agreed. No unanswered questions. CODE STATUS full code. Past Med Surg Social Fam HX - Past Medical History Medical history: asthma, kidney stones Psychiatric history: depression - Past Surgical History Surgical History: - Social History Smoking Status: Former smoker Smokeless Tobacco Status: No Alcohol use: rarely Drug use: none - Family History Father Family Member Ethnicity: Non- Living Status: Still Living Hx Family Cardiac Disorders: No Hx Family Respiratory Disorders: No Hx Family Cancer: No Hx Family GI Disorders: No Hx Family Endocrine Disorder: No Hx Family Neuromuscular Disorders: Yes (MS) Hx Family Neurologic Disorders: No Hx Family HEENT Disorders: No Hx Family Autoimmune Disorders: No Mother Family Member Ethnicity: Non- Living Status: Still Living Hx Family Cardiac Disorders: Yes (HTN) Hx Family Respiratory Disorders: No Hx Family Cancer: No Hx Family GI Disorders: No Hx Family Endocrine Disorder: Yes (DM) Hx Family Neuromuscular Disorders: No Hx Family Neurologic Disorders: No Hx Family HEENT Disorders: No Hx Family Autoimmune Disorders: No Internal Medicine - H&P: Meds Albuterol Sulfate [Proair Hfa] 2 puff IH Q4H PRN #1 hfa.aer.[id number] 06/06/16 [Rx] Ranitidine HCl [Zantac] 150 mg PO BID 12/03/16 [History] Benzonatate [Tessalon] 200 mg PO TID PRN #30 capsule 12/06/16 [Rx] Ipratropium/Albuterol Neb [Duoneb] 3 ml IH [id number] inhsol 12/06/16 [Rx] Levofloxacin [Levaquin] 750 mg PO DAILY 3 Days tablet 12/06/16 [Rx] predniSONE [PredniSONE] 60 mg PO DAILY 12 Days tablet 12/06/16 [Rx] 3 Allergy/AdvReac Type Severity Reaction Status Date / Time Amoxicillin Allergy Severe See Verified 02/08/17 22:17 Comments Penicillins Allergy Severe See Verified 02/08/17 22:17 Comments All Systems PM: A 10-system review of systems was performed and is negative for pertinent findings except as documented above in the HPI. - Constitutional Constitutional: fatigue, weakness, no fever(s) - EENT Eyes: no blurry vision - Cardiovascular Cardiovascular ROS IM: dyspnea, dyspnea on exertion, no chest pain, no diaphoresis, no edema, no lightheadedness, no orthopnea, no palpitations, no syncope - Respiratory Respiratory: cough, dyspnea, dyspnea on exertion, wheezing, chest congestion, change in phlegm color, no hemoptysis - Gastrointestinal Gastrointestinal: no abdominal pain, no bloating, no cramping, no diarrhea, no hematemesis, no hematochezia, no nausea, no vomiting - Genitourinary Genitourinary: no dysuria - Neurological Neurological ROS: no abnormal gait, no abnormal speech, no confusion, no dizziness, no loss of vision, no numbness, no tingling - Constitutional Vitals: Temp Pulse Resp BP Pulse Ox 98.9 F 105 22 126/97 93 02/08/17 23:38 02/08/17 23:38 02/08/17 23:38 02/08/17 23:38 02/08/17 23:38 General appearance: Present: cooperative, A&O X 3, pleasant, no acute distress, answers questions appropriately Exam: Patient is in discomfort due to cough - Head Head exam: Present: atraumatic - Eye Eye exam: Present: EOMI - ENT ENT exam: Present: mucous membranes dry - Neck Neck exam general surgery: Present: full ROM - Respiratory Respiratory exam: Present: wheezes (Bilateral extensive wheezing), tachypnea. Absent: accessory muscle use, rales, respiratory distress, rhonchi - Cardiovascular Cardiovascular exam: Present: RRR, +S1, +S2, tachycardia - GI/Abdominal GI/Abdominal exam: Present: soft. Absent: distended, firm, guarding, tenderness - Extremities Exam Extremities exam: Present: radial pulses palpable and symmetrical. Absent: calf tenderness, cyanotic, pedal edema - Neurological Exam Neurological exam: Present: alert, oriented X3, no focal deficits. Absent: facial droop, speech deficit Internal Med - H&P Results - Labs CBC & Chem 7: 02/08/17 22:43 02/08/17 22:43
[2017-02-09] MEDS: 0.9 % Sodium Chloride 1,000 ML IVC SCH (02:43)
[2017-02-09] MEDS: Ipratropium/Albuterol Neb 3 ML IH SCH ×7 (03:01→23:57)
[2017-02-09 04:54] LABS: Basophils % 0.2 %; Hematocrit 33.9 % (35.3-44.9); Hemoglobin 10.8 g/dL (11.5-15.4); Immature Granulocytes % 0.3 % (0-4); Lymphocytes # 0.5 K/mcL (0.6-4.6); Lymphocytes % 5.2 %; Mean Corpuscular HGB Conc 31.9 g/dL (31.6-35.5); Mean Corpuscular Hemoglobin 26.5 pg (28.0-33.3); Mean Corpuscular Volume 83.3 fL (83.0-100.0); Mean Platelet Volume 8.7 fL (9.4-12.4); Monocytes # 0.1 K/mcL (0.0-1.3); Monocytes % 0.5 %; Neutrophils # 9.2 K/mcL (1.6-8.9); Platelet Count 305 K/mcL (140-400); Red Blood Count 4.07 M/mcL (3.82-4.97); Red Cell Distribution Width 14.9 % (11.5-14.5); Segmented Neutrophils % 93.8 %
[2017-02-09 04:59] LABS: INR 1.2; Prothrombin Time 13.4 Seconds (9.4-12.1)
[2017-02-09 05:07] LABS: BUN/Creatinine Ratio 14 (6-26); Blood Urea Nitrogen 10 mg/dL (7-20); Calcium 9.4 mg/dL (8.6-10.8); Carbon Dioxide 21 mEq/L (19-29); Chloride 105 mEq/L (98-109); Glucose 176 mg/dL (70-99); Magnesium 2.2 mg/dL (1.6-2.6); Osmolality,Calculated 283 (280-300); Potassium 3.9 mEq/L (3.5-4.5); Sodium 135 mEq/L (136-145); eGFR For African Americans > 60 (> 60); eGFR For Non-African Americans > 60 (> 60)
[2017-02-09] MEDS ORDERED: Vancomycin 1,000 MG in D5% in Water 250 ML IVPB SCH (06:00)
[2017-02-09] MEDS: *HR* Heparin 5,000 UNIT/ML VIAL SQ SCH ×2 (06:16→19:02)
[2017-02-09] MEDS ORDERED: Cefepime HCl 1,000 MG in D5% in Water (Mini-Bag+) 100 ML IVPB SCH (08:00)
[2017-02-09] MEDS: Acetaminophen 325 MG TABLET PO PRN (08:16)
[2017-02-09] MEDS ORDERED: Levofloxacin 750 MG/150 ML 750 MG/150 ML BAG IVPB SCH ×2 (09:00→12:00)
[2017-02-09] MEDS: Famotidine 20 MG TABLET PO SCH ×2 (09:52→20:32)
[2017-02-09] MEDS: MethylPREDNISolone 40 MG/ML VIAL IVP SCH ×2 (09:53→16:57)
[2017-02-09] MEDS: Cefepime HCl 1,000 MG in Water for inj. (sterile) 10 ML IVP SCH ×2 (09:55→17:00)
[2017-02-09] MEDS: Levofloxacin 750 MG/150 ML 750 MG/150 ML BAG IVPB SCH (14:16)
[2017-02-09] MEDS ORDERED: Ibuprofen 600 MG TABLET PO ONE (14:37)
[2017-02-09] MEDS: Vancomycin 1,500 MG in D5% in Water 250 ML IVPB SCH (15:26)
--- NOTE | 2017-02-09 19:18 | Event Note ---
Date of Encounter: 02/09/17 Time of Encounter: 19:15 History and physical reviewed. Patient seen slope tender by hospitalist. Patient continued to have wheezing, add Mucinex 1200 twice a day, continue current antibiotic. Counseling patient about the breathing. Aaa flutter valve
--- NOTE | 2017-02-09 20:09 | Electrocardiograph Report ---
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
[2017-02-09] MEDS: *HR* Morphine 2 MG/ML SYRINGE IVP PRN (20:32)
[2017-02-10] MEDS: Cefepime HCl 1,000 MG in Water for inj. (sterile) 10 ML IVP SCH ×3 (01:43→18:19)
[2017-02-10] MEDS: MethylPREDNISolone 40 MG/ML VIAL IVP SCH ×3 (01:43→18:27)
[2017-02-10] MEDS: Levofloxacin 750 MG/150 ML 750 MG/150 ML BAG IVPB SCH (01:44)
[2017-02-10] MEDS: *HR* Morphine 2 MG/ML SYRINGE IVP PRN ×2 (01:56→12:11)
[2017-02-10] MEDS: Vancomycin 1,500 MG in D5% in Water 250 ML IVPB SCH ×2 (02:04→18:35)
[2017-02-10] MEDS: 0.9 % Sodium Chloride 1,000 ML IVC SCH (02:05)
[2017-02-10] MEDS: Ipratropium/Albuterol Neb 3 ML IH SCH ×5 (03:25→20:20)
[2017-02-10] MEDS: *HR* Heparin 5,000 UNIT/ML VIAL SQ SCH ×2 (06:14→18:28)
[2017-02-10] MEDS: Famotidine 20 MG TABLET PO SCH ×2 (12:17→20:36)
--- NOTE | 2017-02-10 13:34 | Internal Med Progress Note ---
Date of Encounter: 02/10/17 Time of Encounter: 13:32 - Assessment and plan (1) Asthma with exacerbation Current Visit: No Status: Acute Assessment and plan: CLINICALLY BETTER Qualifiers: Asthma severity: moderate Asthma persistence: unspecified Qualified Code( s): J45.901 - Unspecified asthma with (acute) exacerbation (2) Lung infiltrate Current Visit: No Status: Acute Assessment and plan: PNEUMONIA STARTED on vanco and cefepime (3) DVT prophylaxis Current Visit: Yes Status: Acute - Subjective Interval history: Patient with history of asthma, GERD, admitted with shortness of breath and hypoxemia diagnosed with asthma exacerbation and the hospital-acquired pneumonia the patient is clinically much better than yesterday exam she still actively wheezing - Constitutional Vitals: Temp Pulse Resp BP Pulse Ox 98.0 F 74 20 114/79 99 02/10/17 07:49 02/10/17 11:38 02/10/17 11:38 02/10/17 11:38 02/10/17 11:38 General appearance: Present: cooperative, A&O X 3, pleasant, no acute distress, answers questions appropriately - Eye Eye exam: Present: PERRL, conjuntiva pink, sclera anicteric Pupils: Present: PERRL - Neck Neck exam general surgery: Present: supple, trachea midline. Absent: lymphadenopathy - Respiratory Respiratory exam: Present: decreased breath sounds, rhonchi, wheezes - Cardiovascular Cardiovascular exam: Present: RRR, +S1, +S2 - GI/Abdominal GI/Abdominal exam: Present: normal bowel sounds, soft, no peritoneal signs. Absent: distended, tenderness - Extremities Exam Extremities exam: Present: warm, radial pulses palpable and symmetrical. Absent : calf tenderness, cyanotic, pedal edema Internal Medicine: Result - Labs CBC & Chem 7: 02/09/17 04:44 02/09/17 04:44 - ABG Interpretation ABG results: PT/INR, D-dimer PT 13.4 Seconds (9.4-12.1) H 02/09/17 04:44 Consult Discharge Plan - Plan Referrals: Rolando Varela MD [Primary Care Provider] -
[2017-02-10 16:21] LABS: Bilirubin,Urine Negative (Negative); Blood,Urine Negative (Negative); Clarity,Urine Clear (Clear); Color,Urine Yellow (Yellow); Glucose,Urine (UA) Normal (Normal); Ketones,Urine Negative (Negative); Leukocyte Esterase,Urine Negative (Negative); Nitrite,Urine Negative (Negative); Protein,Urine Negative (Neg-Trace); Specific Gravity,Urine 1.026 (1.010-1.025); Urobilinogen,Urine Normal (Normal)
[2017-02-10] MEDS: *HR* OxyCODONE/APAP 5/325 TABLET PO PRN (18:19)
[2017-02-11] MEDS: Cefepime HCl 1,000 MG in Water for inj. (sterile) 10 ML IVP SCH ×3 (00:31→17:19)
[2017-02-11] MEDS: Levofloxacin 750 MG/150 ML 750 MG/150 ML BAG IVPB SCH (00:34)
[2017-02-11] MEDS: MethylPREDNISolone 40 MG/ML VIAL IVP SCH ×3 (00:35→17:18)
[2017-02-11] MEDS: Ipratropium/Albuterol Neb 3 ML IH SCH ×7 (00:42→23:26)
[2017-02-11] MEDS: *HR* Morphine 2 MG/ML SYRINGE IVP PRN (02:21)
[2017-02-11] MEDS: *HR* Heparin 5,000 UNIT/ML VIAL SQ SCH ×2 (05:49→17:19)
[2017-02-11] MEDS: Famotidine 20 MG TABLET PO SCH ×2 (07:39→20:32)
[2017-02-11] MEDS ORDERED: Aminoglycoside Consult 1 EACH MC ONE (07:55)
--- NOTE | 2017-02-11 11:19 | Internal Med Progress Note ---
Date of Encounter: 02/11/17 Time of Encounter: : - Assessment and plan (1) Asthma with exacerbation Current Visit: No Status: Acute Assessment and plan: clinically better will continue current RX Qualifiers: Asthma severity: moderate Asthma persistence: unspecified Qualified Code( s): J45.901 - Unspecified asthma with (acute) exacerbation (2) Lung infiltrate Current Visit: No Status: Acute Assessment and plan: clinically better continue iv antibiotics for now (3) DVT prophylaxis Current Visit: Yes Status: Acute - Subjective Interval history: Patient with history of asthma, GERD, admitted with shortness of breath and hypoxemia diagnosed with asthma exacerbation and the hospital-acquired pneumonia the patient is clinically much better than yesterday exam she still actively wheezing today patient seen and examined feels better but still sob pn exertion exam lung sounds better - Constitutional Vitals: Temp Pulse Resp BP Pulse Ox 98.6 F 98 15 135/87 96 02/11/17 07:28 02/11/17 07:28 02/11/17 07:28 02/11/17 07:28 02/11/17 07:28 General appearance: Present: cooperative, A&O X 3, pleasant, no acute distress, answers questions appropriately - Eye Eye exam: Present: PERRL, conjuntiva pink, sclera anicteric Pupils: Present: PERRL - Respiratory Respiratory exam: Present: stridor, wheezes - Cardiovascular Cardiovascular exam: Present: RRR, +S1, +S2 - GI/Abdominal GI/Abdominal exam: Present: normal bowel sounds, soft, no peritoneal signs. Absent: distended, tenderness - Extremities Exam Extremities exam: Present: warm, radial pulses palpable and symmetrical. Absent : calf tenderness, cyanotic, pedal edema Internal Medicine: Result - Labs CBC & Chem 7: 02/09/17 04:44 02/09/17 04:44 Labs: Urine 02/10/17 Range/Units 16:15 Urine Color Yellow (Yellow) Urine Clarity Clear (Clear) Urine pH 7.0 (5.0-8.0) pH Units Ur Specific [place] 1.026 H (1.010-1.025) Urine Protein Negative (Neg-Trace) mg/dL Urine Glucose (UA) Normal (Normal) mg/dL - ABG Interpretation ABG results: PT/INR, D-dimer PT 13.4 Seconds (9.4-12.1) H 02/09/17 04:44 Consult Discharge Plan - Plan Referrals: Rolando Varela MD [Primary Care Provider] -
[2017-02-11 11:53] LABS: Hematocrit 34.5 % (35.3-44.9); Hemoglobin 10.7 g/dL (11.5-15.4); Mean Corpuscular Hemoglobin 26.5 pg (28.0-33.3); Mean Corpuscular Volume 85.4 fL (83.0-100.0); Mean Platelet Volume 8.5 fL (9.4-12.4); Platelet Count 365 K/mcL (140-400); Red Blood Count 4.04 M/mcL (3.82-4.97); Red Cell Distribution Width 15.4 % (11.5-14.5)
[2017-02-11 11:55] LABS: BUN/Creatinine Ratio 16 (6-26); Blood Urea Nitrogen 12 mg/dL (7-20); Calcium 9.7 mg/dL (8.6-10.8); Carbon Dioxide 21 mEq/L (19-29); Chloride 107 mEq/L (98-109); Glucose 139 mg/dL (70-99); Osmolality,Calculated 286 (280-300); Potassium 3.9 mEq/L (3.5-4.5); Sodium 137 mEq/L (136-145); eGFR For African Americans > 60 (> 60); eGFR For Non-African Americans > 60 (> 60)
[2017-02-11] MEDS: Acetaminophen 325 MG TABLET PO PRN (12:34)
[2017-02-11] MEDS: *HR* OxyCODONE/APAP 5/325 TABLET PO PRN (13:52)
[2017-02-12] MEDS: MethylPREDNISolone 40 MG/ML VIAL IVP SCH ×2 (00:39→08:12)
[2017-02-12] MEDS: Cefepime HCl 1,000 MG in Water for inj. (sterile) 10 ML IVP SCH ×2 (00:41→08:12)
[2017-02-12] MEDS: Levofloxacin 750 MG/150 ML 750 MG/150 ML BAG IVPB SCH (00:52)
[2017-02-12] MEDS: Ipratropium/Albuterol Neb 3 ML IH SCH ×3 (04:08→11:15)
[2017-02-12] MEDS: *HR* Heparin 5,000 UNIT/ML VIAL SQ SCH (06:14)
[2017-02-12] MEDS: Famotidine 20 MG TABLET PO SCH (08:11)
[2017-02-12 11:21] VITALS: BP 127/85
--- NOTE | 2017-02-12 12:44 | Discharge Summary ---
Date of Encounter: 02/12/17 Time of Encounter: 12:41 - Discharge Diagnosis (1) Asthma with exacerbation Priority: Primary Status: Acute Comments: clinically much better will dc home Qualifiers: Asthma severity: moderate Asthma persistence: unspecified Qualified Code( s): J45.901 - Unspecified asthma with (acute) exacerbation (2) Lung infiltrate Priority: Secondary Status: Acute Comments: community acquired pneumonia will dc home on po levaquin (3) DVT prophylaxis Priority: Secondary Status: Acute - Discharge Medications Prescriptions: levoFLOXacin [Levaquin] 750 mg PO DAILY #10 tablet Home Medications: Albuterol Sulfate [Proair Hfa] 2 puff IH Q6H PRN 02/09/17 [History] Ipratropium/Albuterol Neb [Duoneb] 3 ml IH Q6HR PRN 02/09/17 [History] levoFLOXacin [Levaquin] 750 mg PO DAILY #10 tablet 02/12/17 [Rx] Allergies/Adverse Reactions: 3 Allergy/AdvReac Type Severity Reaction Status Date / Time Amoxicillin Allergy Severe See Verified 02/08/17 22:17 Comments Penicillins Allergy Severe See Verified 02/08/17 22:17 Comments Date of admission: 02/09/17 03:05 Primary care physician: Rolando Varela Discharging clinician: Eveline Ackerman Anticipated date of discharge: 02/12/17 - Patient Status Disposition: Home, Self-Care Condition: Good Overall status at discharge: patient is progressing back to baseline - Discharge Instructions - Diet and Activity Activity: other Diet: advance to your usual diet Hospital course: Ms. Parra is a 41 year old female - Time Spent with Patient Total time spent providing and/or coordinating discharge services: - Constitutional Vitals: Temp Pulse Resp BP Pulse Ox 97.6 F 95 18 127/85 100 02/12/17 11:18 02/12/17 11:18 02/12/17 11:18 02/12/17 11:18 02/12/17 11:18 General appearance: Present: cooperative, A&O X 3, pleasant, no acute distress, answers questions appropriately
[2017-02-12] MEDS ORDERED: FLUARIX QUAD 2017-18 36MOS UP/PF 0.5 ML SYRINGE IM ONE (13:28)
[2017-02-13] MEDS ORDERED: levoFLOXacin 750 MG TABLET PO SCH (09:00)
== END 2017-02-12 13:53 | disposition home or self-care (01) | DRG 193 ==
LOC: EMEROO 22:12 → 3NENU 22:12 → 2NENU 02-09 02:43 → 3BNU 02-09 16:09
PROVIDERS: ADMIT Family Medicine; ATTEND Hospitalist

== ENCOUNTER 2017-05-24 22:21 | Inpatient (IN) ==
[2017-05-24] MEDS ORDERED: methylPREDNISolone 125 MG/2 ML VIAL IVP ONE (22:25)
[2017-05-24] MEDS ORDERED: Ipratropium/Albuterol Neb 3 ML IH ONE (22:25)
--- NOTE | 2017-05-24 22:34 | Emergency Department Note ---
Disposition Clinical Impression: Asthma with exacerbation Qualifiers: Asthma severity: unspecified severity Asthma persistence: unspecified Qualified Code(s): J45.901 - Unspecified asthma with (acute) exacerbation Dyspnea Qualifiers: Dyspnea type: unspecified Qualified Code(s): R06.00 - Dyspnea, unspecified Disposition: Home, Self-Care Condition: Fair Time of Disposition: 01:02 SOB HPI - General Chief Complaint: ED Shortness of Breath/Dyspnea Stated Complaint: jay Time Seen by Provider: 05/24/17 22:22 Source: patient Nursing Notes Reviewed: Yes Vital Signs Reviewed: Yes - History of Present Illness Pt Subjective Complaint: "asthma attack" Onset (ago): hour(s) Severity: moderate Consistency/Duration: gradually worsening Improves with: nothing Worsens with: nothing Known history of: asthma Associated symptoms: Reports: pain with inspiration, wheezing. Denies: chest pain, fever, cough, sputum production, lower extremity pain, nausea/vomiting, abdominal pain, rash Treatment prior to arrival: bronchodilator (3 nebulized treatments in past 6 hours; daily symbicort) Cough present: No - Related Data Home Medications Medication Instructions Recorded Confirmed Albuterol Sulfate [Proair Hfa] 2 puff IH Q6H PRN 02/09/17 02/09/17 Ipratropium/Albuterol Neb [Duoneb] 3 ml IH Q6HR PRN 02/09/17 02/09/17 Previous Rx's Medication Instructions Recorded levoFLOXacin [Levaquin] 750 mg PO DAILY #10 tablet 02/12/17 Allergies Allergy/AdvReac Type Severity Reaction Status Date / Time Amoxicillin Allergy Severe See Verified 02/08/17 22:17 Comments Penicillins Allergy Severe See Verified 02/08/17 22:17 Comments All systems ED: reviewed and negative except as stated. Review of Systems: As Per HPI Constitutional: Denies: fever, chills, weakness ENT ED: Denies: throat pain Cardiovascular: Reports: as per HPI Respiratory: Reports: as per HPI Gastrointestinal: Denies: abdominal pain, nausea, vomiting Genitourinary: Denies: dysuria Musculoskeletal: Denies: back pain Integumentary: Denies: rash Neurological: Denies: headache Psychiatric: Denies: anxiety Endocrine: Denies: fatigue Hematological/Lymphatic: Denies: easy bleeding Allergic/Immunologic: Denies: facial swelling Past Medical History - Past Medical History Medical history: Reports: asthma, kidney stones Surgical history: Reports: Psychiatric history: Reports: depression - Social History Smoking Status: Former smoker Smokeless Tobacco Status: No Alcohol use: Reports: rarely Drug use: Reports: none Physical Exam - General Limitations: no limitations General appearance: alert, in no apparent distress - Head Head exam: atraumatic, normocephalic - Eye Eye exam: Present: normal appearance. Absent: EOMI, conjunctival injection - ENT ENT exam: mucous membranes moist - Neck Neck exam: Present: full ROM - Respiratory Respiratory exam: Present: wheezes, accessory muscle use. Absent: stridor - Cardiovascular Cardiovascular exam: Present: normal rhythm, tachycardia - Extremities Exam Extremities exam: Present: normal inspection, full ROM, normal capillary refill. Absent: pedal edema - Back Exam Back exam: Present: full ROM - Neurological Exam Neurological exam: Present: alert - Psychiatric Psychiatric exam: Present: normal affect - Skin Skin exam: Present: warm, dry, intact, normal color. Absent: rash, cyanosis, diaphoresis Course Course Narrative: 41-year-old female with known history of asthma presents with complaint of dyspnea. Patient initially seen in triage area upon her arrival by wheelchair from home. She describes worsening asthma over the past 6 hours with no improvement after 3 DuoNeb's. She compares it to previoius asthma attacks. Chest pain worse with inspiration. 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 Patient denies any recent illness, cough, fever, noncompliance with her asthma medications, nausea, vomiting. States she uses daily Symbicort, and albuterol as needed. No h/o of DVT,PE, CA, or hormone use. Tachy likey related to asthma. Low risk for PE per [place]. On examination, she is visualized labored breathing, with prolonged expiratory. 95% O2, slightly tachycardic and hypertensive, but afebrile. Bilateral wheezing, heart regular rhythm. No bilateral lower extremity edema. IV placed. IV steroids ordered. DuoNeb's ordered. - Reevaluation(s) Reevaluation #1: Lungs continue bilateral wheeze. Patient discussed with Dr. Campos, who advised for additional workup with VBG, basic blood work, IV magnesium, antibiotics, and admission. Time: 23:03 Reevaluation #2: Pt improved on BIPAP. AGreeable to admission. Pt has h/o of penicillin allergies, with c/o throat swelling. She denies any issues with keflex and has used it before. Labs pending. Will plan to discuss with hospitalist for admission. Time: 23:55 Reevaluation #3: Pt discussed with and accepted by hospitalist Dr. Choi, who also asked for ABG , and to attempt to wean pt off of bipap if able. Time: 01:27 Vital Signs Respiratory Rate 24 05/24/17 22:21 O2 Sat by Pulse Oximetry 100 05/24/17 22:21 Temperature 98.1 F 05/25/17 04:49 Pulse Rate 98 05/25/17 02:43 Respiratory Rate 17 05/25/17 04:39 Blood Pressure 138/87 05/25/17 04:39 O2 Sat by Pulse Oximetry 99 05/25/17 04:39 Oxygen Delivery Oxygen Delivery Bipap Shortness of Breath/Dyspnea - [facility] Narrative Medical decision making narrative: Patient presented with difficulty breathing, known history of asthma. Patient was initially seen in triage area, and then eventually roomed in exam room. Initial dose of albuterol and Solu-Medrol showed no improvement in her labored breathing and wheezing. Patient was seen and worked up in conjunction with Dr. Campos who also had face time with patient, and advised for additional workup, magnesium, BiPAP, antibiotics, and admission. Patient's breathing did improve on BiPAP, but worsened when it was removed when she went the bathroom in her exam room.. Chest x-ray shows no concerning signs for pneumonia. Patient denies any histories of intubation, but does mention she was hospitalized with asthma exacerbations, when she was diagnosed with pneumonia at the same time. Patient was accepted to the hospitalist service for further evaluation and treatment Chest X-Ray 05/24/17 22:25 IMPRESSION: Stable negative chest. D/ / Marika Chance MD / Marika Chance MD Interpreting Provider: Marika Chance MD Laboratory Tests 05/25/17 05/25/17 05/25/17 00:05 00:05 00:05 WBC 16.3 H RBC 4.40 Hgb 11.5 Hct 37.2 MCV 84.5 MCH 26.1 L MCHC 30.9 L RDW 16.3 H Plt Count 361 MPV 8.4 L Immature Gran % 0.4 Seg Neutrophils % 83.6 Lymphocytes % 10.1 Monocytes % 2.6 Eosinophils % 2.9 Basophils % 0.4 Neutrophils # 13.6 H Lymphocytes # 1.6 Monocytes # 0.4 Eosinophils # 0.5 Basophils # 0.1 Sample Site ABG pH ABG pCO2 ABG pO2 ABG HCO3 ABG Total CO2 ABG O2 Saturation ABG Base Excess Juan Carlos Test VBG pH VBG pCO2 VBG pO2 VBG HCO3 O2 Delivery Device Inspired O2 Sodium 136 Potassium 3.7 Chloride 105 Carbon Dioxide 23 BUN 13 Creatinine 0.62 Est GFR ( Amer) > 60 Est GFR (Non-Af Amer) > 60 BUN/Creatinine Ratio 21 Glucose 119 H Calculated Osmolality 283 Lactic Acid 0.6 Calcium 9.4 Troponin I < 0.03 B-Natriuretic Peptide 05/25/17 05/25/17 05/25/17 00:05 00:26 01:37 WBC RBC Hgb Hct MCV MCH MCHC RDW Plt Count MPV Immature Gran % Seg Neutrophils % Lymphocytes % Monocytes % Eosinophils % Basophils % Neutrophils # Lymphocytes # Monocytes # Eosinophils # Basophils # Sample Site L Radial ABG pH 7.39 ABG pCO2 34 L ABG pO2 74 L ABG HCO3 21 ABG Total CO2 22 ABG O2 Saturation 95 ABG Base Excess -3 L Juan Carlos Test Positive VBG pH 7.30 L VBG pCO2 48 VBG pO2 43 VBG HCO3 24 O2 Delivery Device BiPAP Inspired O2 30.0 Sodium Potassium Chloride Carbon Dioxide BUN Creatinine Est GFR ( Amer) Est GFR (Non-Af Amer) BUN/Creatinine Ratio Glucose Calculated Osmolality Lactic Acid Calcium Troponin I B-Natriuretic Peptide 24 - Lab Data Lab results reviewed: Yes I reviewed the patient's lab results. Result diagrams: 05/25/17 00:05 05/25/17 00:05 Lab Results 05/25/17 05/25/17 05/25/17 Range/Units 00:05 00:05 00:05 WBC 16.3 H (4.3-11.1) K/mcL RBC 4.40 (3.82-4.97) M/mcL Hgb 11.5 (11.5-15.4) g/dL Hct 37.2 (35.3-44.9) % MCV 84.5 (83.0-100.0) fL MCH 26.1 L (28.0-33.3) pg MCHC 30.9 L (31.6-35.5) g/dL RDW 16.3 H (11.5-14.5) % Plt Count 361 (140-400) K/mcL MPV 8.4 L (9.4-12.4) fL Immature Gran % 0.4 (0-4) % Seg Neutrophils % 83.6 % Lymphocytes % 10.1 % Monocytes % 2.6 % Eosinophils % 2.9 % Basophils % 0.4 % Neutrophils # 13.6 H (1.6-8.9) K/mcL Lymphocytes # 1.6 (0.6-4.6) K/mcL Monocytes # 0.4 (0.0-1.3) K/mcL Eosinophils # 0.5 (0.0-0.6) K/mcL Basophils # 0.1 (0.0-0.2) K/mcL Sample Site ABG pH (7.32-7.45) pH Units ABG pCO2 (35-45) mmHg ABG pO2 (85-104) mmHg ABG HCO3 (21-27) mEq/L ABG Total CO2 (20-26) mEq/L ABG O2 Saturation (95-98) % ABG Base Excess (-2 to 3) mEq/L Juan Carlos Test VBG pH (7.32-7.42) pH Units VBG pCO2 (41-51) mmHg VBG pO2 (25-50) mmHg VBG HCO3 (21-27) mEq/L O2 Delivery Device Inspired O2 (1-15=lpm [id number]=%) Sodium 136 (136-145) mEq/L Potassium 3.7 (3.5-5.1) mEq/L Chloride 105 (98-107) mEq/L Carbon Dioxide 23 (23-29) mEq/L BUN 13 (6-20) mg/dL Creatinine 0.62 (0.60-1.20) mg/dL Est GFR ( Amer) > 60 (> 60) Est GFR (Non-Af Amer) > 60 (> 60) BUN/Creatinine Ratio 21 (6-26) Glucose 119 H (70-105) mg/dL Calculated Osmolality 283 (280-300) Lactic Acid 0.6 (0.5-2.2) mmol/L Calcium 9.4 (8.6-10.3) mg/dL Troponin I < 0.03 (< 0.04) ng/mL B-Natriuretic Peptide (Less than 100) pg/mL 05/25/17 05/25/17 05/25/17 Range/Units 00:05 00:26 01:37 WBC (4.3-11.1) K/mcL RBC (3.82-4.97) M/mcL Hgb (11.5-15.4) g/dL Hct (35.3-44.9) % MCV (83.0-100.0) fL MCH (28.0-33.3) pg MCHC (31.6-35.5) g/dL RDW (11.5-14.5) % Plt Count (140-400) K/mcL MPV (9.4-12.4) fL Immature Gran % (0-4) % Seg Neutrophils % % Lymphocytes % % Monocytes % % Eosinophils % % Basophils % % Neutrophils # (1.6-8.9) K/mcL Lymphocytes # (0.6-4.6) K/mcL Monocytes # (0.0-1.3) K/mcL Eosinophils # (0.0-0.6) K/mcL Basophils # (0.0-0.2) K/mcL Sample Site L Radial ABG pH 7.39 (7.32-7.45) pH Units ABG pCO2 34 L (35-45) mmHg ABG pO2 74 L (85-104) mmHg ABG HCO3 21 (21-27) mEq/L ABG Total CO2 22 (20-26) mEq/L ABG O2 Saturation 95 (95-98) % ABG Base Excess -3 L (-2 to 3) mEq/L Juan Carlos Test Positive VBG pH 7.30 L (7.32-7.42) pH Units VBG pCO2 48 (41-51) mmHg VBG pO2 43 (25-50) mmHg VBG HCO3 24 (21-27) mEq/L O2 Delivery Device BiPAP Inspired O2 30.0 (1-15=lpm [id number]=%) Sodium (136-145) mEq/L Potassium (3.5-5.1) mEq/L Chloride (98-107) mEq/L Carbon Dioxide (23-29) mEq/L BUN (6-20) mg/dL Creatinine (0.60-1.20) mg/dL Est GFR ( Amer) (> 60) Est GFR (Non-Af Amer) (> 60) BUN/Creatinine Ratio (6-26) Glucose (70-105) mg/dL Calculated Osmolality (280-300) Lactic Acid (0.5-2.2) mmol/L Calcium (8.6-10.3) mg/dL Troponin I (< 0.04) ng/mL B-Natriuretic Peptide 24 (Less than 100) pg/mL - Radiology Data Radiology results reviewed: Yes I reviewed the patient's radiology results. - EKG Data EKG attestation: Yes I reviewed and interpreted this EKG. EKG results narrative: Sinus tach, otherwise normal EKG. vent rate 103, NH interval 122, QRS duration 82, QT/QTC 326/386
[2017-05-24] MEDS ORDERED: 0.9 % Sodium Chloride 1,000 ML IVC ONE (23:01)
--- NOTE | 2017-05-24 23:32 | Emergency Department Note ---
START Narrative - START START: I examined this patient and my medical decision-making was reviewed with the Resident Physician. I agree with the documented findings, disposition and treatment plan as described except to the extent set forth below. I spent greater than 35 minutes of critical care time resuscitating this acutely ill patient suffering from status asthmaticus requiring BiPAP as well as magnesium sulfate and serial bronchodilator medications. The patient has a history of previous hospitalizations from pneumonia resulting in asthma exacerbation. I would at this point proceed with admission given her degree of tachypnea and work of breathing as well as overall respiratory status. We are pending basic laboratory analyses as well as blood gas results. Patient remains in critical condition with high potential for life-threatening deterioration.
[2017-05-24] MEDS ORDERED: Azithromycin 500 MG in D5% in Water 250 ML IVPB ONE (23:33)
[2017-05-25 00:22] LABS: Basophils # 0.1 K/mcL (0.0-0.2); Basophils % 0.4 %; Eosinophils # 0.5 K/mcL (0.0-0.6); Eosinophils % 2.9 %; Hematocrit 37.2 % (35.3-44.9); Hemoglobin 11.5 g/dL (11.5-15.4); Immature Granulocytes % 0.4 % (0-4); Lymphocytes # 1.6 K/mcL (0.6-4.6); Lymphocytes % 10.1 %; Mean Corpuscular HGB Conc 30.9 g/dL (31.6-35.5); Mean Corpuscular Hemoglobin 26.1 pg (28.0-33.3); Mean Corpuscular Volume 84.5 fL (83.0-100.0); Mean Platelet Volume 8.4 fL (9.4-12.4); Monocytes # 0.4 K/mcL (0.0-1.3); Monocytes % 2.6 %; Neutrophils # 13.6 K/mcL (1.6-8.9); Platelet Count 361 K/mcL (140-400); Red Cell Distribution Width 16.3 % (11.5-14.5); Segmented Neutrophils % 83.6 %
[2017-05-25] MEDS ORDERED: Ipratropium/Albuterol Neb 3 ML IH ONE ×2 (00:25→02:08)
[2017-05-25 00:34] LABS: VBG HCO3 24 mEq/L (21-27); VBG PCO2 48 mmHg (41-51); VBG PO2 43 mmHg (25-50)
[2017-05-25 00:40] LABS: BUN/Creatinine Ratio 21 (6-26); Blood Urea Nitrogen 13 mg/dL (6-20); Calcium 9.4 mg/dL (8.6-10.3); Carbon Dioxide 23 mEq/L (23-29); Chloride 105 mEq/L (98-107); Glucose 119 mg/dL (70-105); Osmolality,Calculated 283 (280-300); Potassium 3.7 mEq/L (3.5-5.1); Sodium 136 mEq/L (136-145); eGFR For African Americans > 60 (> 60); eGFR For Non-African Americans > 60 (> 60)
[2017-05-25 00:42] LABS: Troponin I < 0.03 ng/mL (< 0.04)
[2017-05-25] MEDS ORDERED: Ondansetron 4 MG/2 ML VIAL IVP ONE (01:00)
[2017-05-25 01:44] LABS: ABG Base Excess -3 mEq/L (-2 to 3); ABG HCO3 21 mEq/L (21-27); ABG Oxygen Saturation 95 % (95-98); ABG PCO2 34 mmHg (35-45); ABG PH 7.39 pH Units (7.32-7.45); ABG PO2 74 mmHg (85-104); ABG TCO2 22 mEq/L (20-26)
[2017-05-25] MEDS ORDERED: 0.9 % Sodium Chloride w KCl 20 MEQ/1,000 ML MLS IVC SCH (02:00)
[2017-05-25] MEDS ORDERED: Naloxone 0.4 MG/ML INJ IVP PRN ×2 (02:00→09:29)
[2017-05-25] MEDS ORDERED: Albuterol 2.5 MG/3 ML NEBULIZER IH PRN ×2 (02:00→09:29)
[2017-05-25] MEDS ORDERED: Acetaminophen 325 MG TABLET PO PRN (02:00)
--- NOTE | 2017-05-25 02:49 | Internal Med History&Physical ---
Date of Encounter: 05/25/17 Time of Encounter: 01:35 Assessment and Plan (1) Acute respiratory failure Current visit: Yes Status: Acute 1. Will admit to ICU for close monitoring and treatment. 2. Continue BiPap and continuos aerosols for now. 3. Wean Oxygen as able. 4. If she decompensates or develops respiratory fatigue, she will need intubated and mechanical ventilation. 5. Will obtain nasal sample for Influenza testing. Qualifiers: Respiratory failure complication: hypoxia Qualified Code(s): J96.01 - Acute respiratory failure with hypoxia (2) Acute asthma exacerbation Current visit: No Status: Acute 1. Will treat with continuous aerosols for now and frequent monitoring and reassessments. 2. Aggressive IV steroids. 3. Empiric antibiotics to cover possible pneumonia. 4. BiPap and respiratory support as above. Qualifiers: Asthma severity: severe Asthma persistence: persistent Qualified Code(s) : J45.51 - Severe persistent asthma with (acute) exacerbation (3) DVT prophylaxis Current visit: Yes Status: Acute 1. Heparin SQ. Internal Medicine - H&P: HPI Chief complaint: SOB; cough; wheeze Admitted From: Emergency Dept Plans for Post Hospital Care: Home History of present illness: Ms. Parra is a 41 year old female who presents to the ER tonight with coughing , wheezing, and acute respiratory distress. Symptoms started over last 2-3 days with diffuse wheezing, coughing, and chest congestion. Patient suffers from asthma and has been hospitalized many times for asthma exacerbation. She has been taking her home nebulized treatments and Symbicort as directed. However, despite these measures, she continued to worsen. She was at work tonight coughing and wheezing and progressively becoming more dyspneic. She tried to finish her shift. However, her dyspnea and breathing were so severe she had to leave work early and come to the ER. In the ER, she received 4 aerosols continuously and was placed on BiPAP. She had initial labs reveal leukocytosis and a VBG was done revealing an acidosis. We were then then contacted to admit the patient. We requested an arterial blood gas, and I came to the ER to see her right away. Upon my assessment of the patient in the ER, patient is in obvious and severe respiratory distress. She has increased work of breathing, severe conversational dyspnea even on BiPAP, and remains tachypneic and tachycardic. She denies any fevers, bur she admits to having coughing, wheezing, and worsening shortness of breath the last few days. 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 I removed her BiPAP temporarily and she became more tachypneic and restless. After I interviewed her and examined her, I placed her back on BiPAP and decided to move her to the intensive care unit for close monitoring and treatment. If she fails conservative measures, she may need intubated. Past Med Surg Social Fam HX - Past Medical History Attestation: Yes The following information was validated with the patient. Source: patient, old records reviewed Medical history: asthma, kidney stones Psychiatric history: depression - Past Surgical History Surgical History: - Social History Smoking Status: Former smoker Smokeless Tobacco Status: No Alcohol use: rarely Drug use: none Occupational status: employed Current living situation: Home, With Family Activity Level: Independent ambulation, Very active Recent Out of Country Travel Within the Last 8 Weeks: No - Family History Father Family Member Ethnicity: Non- Living Status: Still Living Hx Family Cardiac Disorders: No Hx Family Respiratory Disorders: No Hx Family Cancer: No Hx Family GI Disorders: No Hx Family Endocrine Disorder: No Hx Family Neuromuscular Disorders: Yes (MS) Hx Family Neurologic Disorders: No Hx Family HEENT Disorders: No Hx Family Autoimmune Disorders: No Mother Family Member Ethnicity: Non- Living Status: Still Living Hx Family Cardiac Disorders: Yes (HTN) Hx Family Respiratory Disorders: No Hx Family Cancer: No Hx Family GI Disorders: No Hx Family Endocrine Disorder: Yes (DM) Hx Family Neuromuscular Disorders: No Hx Family Neurologic Disorders: No Hx Family HEENT Disorders: No Hx Family Autoimmune Disorders: No Internal Medicine - H&P: Meds Albuterol Sulfate [Proair Hfa] 2 puff IH Q6H PRN 02/09/17 [History] Ipratropium/Albuterol Neb [Duoneb] 3 ml IH Q6HR PRN 02/09/17 [History] levoFLOXacin [Levaquin] 750 mg PO DAILY #10 tablet 02/12/17 [Rx] 3 Allergy/AdvReac Type Severity Reaction Status Date / Time Amoxicillin Allergy Severe See Verified 02/08/17 22:17 Comments Penicillins Allergy Severe See Verified 11/26/17 22:17 Comments - Constitutional Constitutional: no chills, no fever(s), no night sweats - EENT Eyes: no blurry vision, no change in vision Ears: no ear pain, no tinnitus Nose, mouth and throat: nasal congestion, no sinus pressure, no sore throat - Cardiovascular Cardiovascular ROS IM: no chest pain, no diaphoresis, no lightheadedness, no orthopnea, no paroxysmal nocturnal dyspnea - Respiratory Respiratory: cough, dyspnea, wheezing, chest congestion, no hemoptysis, no pain on inspiration, no excessive phlegm production, no change in phlegm color - Gastrointestinal Gastrointestinal: no abdominal pain, no diarrhea, no hematemesis, no hematochezia, no melena, no nausea, no vomiting - Genitourinary Genitourinary: no dysuria, no flank pain, no hematuria - Musculoskeletal Musculoskeletal ROS IM: no arthralgias, no back pain - Integumentary Integumentary IM: no rash, no jaundice - Neurological Neurological ROS: no dizziness, no focal weakness, no frequent falls, no headache(s) - Psychiatric Psychiatric: no anxiety, no depression - Endocrine Endocrine IM: no polydipsia, no polyuria - Hematologic/Lymphatic Hematologic/Lymphatic: no easy bruising, no lymphadenopathy - Allergic/Immunologic Allergic/Immunologic: wheezing, no tongue swelling, no throat swelling, no GI upset with certain foods - Constitutional Vitals: Temp Pulse Resp BP Pulse Ox 97.8 F 103 21 145/89 96 05/24/17 22:23 05/25/17 02:01 05/25/17 02:01 05/25/17 02:01 05/25/17 02:01 General appearance: Present: cooperative, A&O X 3, pleasant, severe distress ( respiratory), answers questions appropriately - Head Head exam: Present: normal inspection - Eye Eye exam: Present: EOMI, PERRL. Absent: scleral icterus Pupils: Present: normal accommodation - ENT ENT exam: Present: mucous membranes dry, normal exam, normal oropharynx Additional comments: BiPap mask in place; removed temporarily and then replaced - Neck Neck exam general surgery: Present: full ROM, supple. Absent: lymphadenopathy, tenderness, nuchal rigidity - Respiratory Respiratory exam: Present: accessory muscle use, decreased breath sounds, prolonged expiratory phase, respiratory distress, wheezes, tachypnea. Absent: chest wall tenderness, rales, rhonchi, stridor - Cardiovascular Cardiovascular exam: Present: RRR, +S1, +S2, tachycardia. Absent: diastolic murmur, systolic murmur - GI/Abdominal GI/Abdominal exam: Present: soft. Absent: guarding, hepatomegaly, mass, rebound , splenomegaly, tenderness - Extremities Exam Extremities exam: Present: full ROM, normal capillary refill, warm, radial pulses palpable and symmetrical. Absent: calf tenderness, joint swelling, pedal edema - Back Exam Back exam: Absent: CVA tenderness (L), CVA tenderness (R) - Neurological Exam Neurological exam: Present: alert, CN II-XII intact, oriented X3, no focal deficits - Psychiatric Psychiatric exam: Present: anxious - Skin Skin exam: Present: dry, warm. Absent: rash Internal Med - H&P Results - Labs CBC & Chem 7: 05/25/17 00:05 05/25/17 00:05 - EKG Data -: EKG Interpreted by Myself - EKG Data Prior EKG available for review: no EKG comments: 05/25/17 02:53 sinus tachycardia - Diagnostic Studies Chest x-ray Status: image reviewed by me (negative; mild hyperinflation)
[2017-05-25] MEDS: Ipratropium/Albuterol Neb 3 ML IH SCH ×6 (04:38→23:49)
[2017-05-25] MEDS ORDERED: *HR* Heparin 5,000 UNIT/ML VIAL SQ SCH (06:00)
[2017-05-25] MEDS ORDERED: methylPREDNISolone 125 MG/2 ML VIAL IVP SCH (06:00)
[2017-05-25 06:08] LABS: BUN/Creatinine Ratio 19 (6-26); Blood Urea Nitrogen 11 mg/dL (6-20); Calcium 9.2 mg/dL (8.6-10.3); Carbon Dioxide 21 mEq/L (23-29); Chloride 107 mEq/L (98-107); Glucose 136 mg/dL (70-105); Magnesium 2.3 mg/dL (1.6-2.6); Osmolality,Calculated 283 (280-300); Sodium 136 mEq/L (136-145); eGFR For African Americans > 60 (> 60); eGFR For Non-African Americans > 60 (> 60)
[2017-05-25] MEDS ORDERED: Ibuprofen 400 MG TABLET PO PRN ×2 (07:00→09:29)
[2017-05-25] MEDS ORDERED: Levofloxacin 750 MG/150 ML 750 MG/150 ML BAG IVPB SCH (09:00)
[2017-05-25 11:56] LABS: Influenza A PCR Negative (Negative); Influenza B PCR Negative (Negative); Resp. Syncytial Virus PCR Negative (Negative)
[2017-05-25] MEDS: methylPREDNISolone 125 MG/2 ML VIAL IVP SCH ×2 (12:00→17:30)
--- NOTE | 2017-05-25 13:05 | Internal Med Progress Note ---
<Dallas Galvez - Last Filed: 05/25/17 13:32> Date of Encounter: 05/25/17 Time of Encounter: 13:00 - Assessment and plan (1) Acute respiratory failure Current Visit: Yes Status: Acute Assessment and plan: 2nd to acute asthma exacerbation on admission required bipap support and admitted to ICU this morning on 3L O2 via NC, not is respiratory distress continue duoneb,wean off O2 Qualifiers: Respiratory failure complication: hypoxia Qualified Code(s): J96.01 - Acute respiratory failure with hypoxia (2) Acute asthma exacerbation Current Visit: Yes Status: Resolved Assessment and plan: resolved cxr negative for acute infectious process lung exam: diffuse wheezing conitnue duonebs, IV steroids and symbicort. sputum culture negative RIP pending order maru recommend seeing eligibility specialist outpatient due to frequent admissions for acute asthma. Qualifiers: Asthma severity: severe Asthma persistence: persistent Qualified Code(s) : J45.51 - Severe persistent asthma with (acute) exacerbation (3) DVT prophylaxis Current Visit: Yes Status: Acute Assessment and plan: heparin SQ - Subjective Interval history: Patient sitting comfortably in bed without any respiratory distress. She is currently requiring 3 L oxygen via nasal cannula. Patient is not BiPAP dependent. She reports shortness of breath but improved. He reports nonproductive cough. Denies chest pain abdominal pain, nausea, vomiting, diarrhea. Patient 30 year history of asthma. Reports since moving to [place] 13 years ago her asthma has worsened. In the past 3 years she has had multiple visits to the emergency room and admissions secondary to asthma exacerbation. At home patient has proair, Symbicort and DuoNeb's for her asthma treatment. Denies any sick contacts. Reports she moved into her house 3 years ago. Denies occupational exposures. - Constitutional Vitals: Temp Pulse Resp BP Pulse Ox 97.7 F 108 18 146/96 97 05/25/17 10:10 05/25/17 10:10 05/25/17 10:27 05/25/17 10:10 05/25/17 10:27 General appearance: Present: cooperative, A&O X 3, pleasant, severe distress ( respiratory), answers questions appropriately - Other Additional findings: General: without distress HEENT: Head atraumatic, normocephalic, EOMI, PERRL, neck nontender to palpation , absent lymphadenopathy, Moist Mucous Membranes, Heart: Regular rate and rhythm with no murmur Lungs: Diffuse inspiratory and expiratory wheezing. Abdomen: Soft nontender, nondistended positive bowel sounds Skin: warm and dry Extremities: Absent pedal edema, Neuro: Alert oriented 3 Vascular: Pedal and radial pulses 2 out of 4 Internal Medicine: Result - Labs CBC & Chem 7: 05/25/17 00:05 05/25/17 04:07 Labs: BMP 05/25/17 04:07 Sodium 136 Potassium 4.0 Chloride 107 Carbon Dioxide 21 L BUN 11 Creatinine 0.59 L Glucose 136 H Calcium 9.2 - ABG Interpretation ABG results: ABG ABG pH 7.39 pH Units (7.32-7.45) 05/25/17 01:37 ABG pCO2 34 mmHg (35-45) L 05/25/17 01:37 ABG pO2 74 mmHg (85-104) L 05/25/17 01:37 ABG O2 Saturation 95 % (95-98) 05/25/17 01:37 Consult Discharge Plan - Plan Referrals: Rolando Varela MD [Primary Care Provider] - <Anibal Meadows H - Last Filed: 05/25/17 14:12> Date of Encounter: 05/25/17 - Constitutional Vitals: Temp Pulse Resp BP Pulse Ox 97.7 F 108 18 146/96 97 05/25/17 10:10 05/25/17 10:10 05/25/17 10:27 05/25/17 10:10 05/25/17 10:27 Internal Medicine: Result - Labs CBC & Chem 7: 05/25/17 00:05 05/25/17 04:07 Labs: BMP 05/25/17 04:07 Sodium 136 Potassium 4.0 Chloride 107 Carbon Dioxide 21 L BUN 11 Creatinine 0.59 L Glucose 136 H Calcium 9.2 - ABG Interpretation ABG results: ABG ABG pH 7.39 pH Units (7.32-7.45) 05/25/17 01:37 ABG pCO2 34 mmHg (35-45) L 05/25/17 01:37 ABG pO2 74 mmHg (85-104) L 05/25/17 01:37 ABG O2 Saturation 95 % (95-98) 05/25/17 01:37 - Attending Attestation leukocytosis, nonspecific I examined this patient and my medical decision-making was reviewed with the Resident Physician. I agree with the documented findings, disposition and treatment plan as described except to the extent set forth below.
[2017-05-25] MEDS ORDERED: 0.9 % Sodium Chloride 1,000 ML IVC SCH (13:30)
[2017-05-25] MEDS: *HR* Heparin 5,000 UNIT/ML VIAL SQ SCH (17:30)
--- NOTE | 2017-05-25 20:19 | Electrocardiograph Report ---
[place] [id number] Test Date: 2017-05-24 Pat Name: Kim Parra Department: 104 Room: 2A Gender: F Hydrology Technician: SAMUEL : 1975 Requested By: Wicho Caballero Order Number: [id number] Reading MD: Dread Celestin MD Measurements Intervals [place] Rate: 103 P: 49 AL: 122 QRS: 69 QRSD: 82 T: 34 QT: 326 QTc: 386 Interpretive Statements SINUS TACHYCARDIA ELECTRICAL ALTERNANS BASELINE ARTIFACT Electronically Signed On 05-25-2017 20:17:59 EDT by Dread Celestin MD
[2017-05-25] MEDS: traZODone 50 MG TABLET PO PRN (20:48)
[2017-05-25] MEDS: Acetaminophen 325 MG TABLET PO PRN (20:48)
[2017-05-26] MEDS: methylPREDNISolone 125 MG/2 ML VIAL IVP SCH ×4 (00:44→17:40)
[2017-05-26] MEDS: *HR* Heparin 5,000 UNIT/ML VIAL SQ SCH ×2 (05:03→17:41)
[2017-05-26] MEDS: Ipratropium/Albuterol Neb 3 ML IH SCH ×5 (05:08→20:42)
[2017-05-26 07:49] LABS: Basophils % 0.1 %; Hematocrit 37.2 % (35.3-44.9); Hemoglobin 11.5 g/dL (11.5-15.4); Immature Granulocytes % 0.3 % (0-4); Lymphocytes # 0.8 K/mcL (0.6-4.6); Lymphocytes % 8.3 %; Mean Corpuscular HGB Conc 30.9 g/dL (31.6-35.5); Mean Corpuscular Hemoglobin 26.1 pg (28.0-33.3); Mean Corpuscular Volume 84.5 fL (83.0-100.0); Mean Platelet Volume 8.9 fL (9.4-12.4); Monocytes # 0.1 K/mcL (0.0-1.3); Monocytes % 1.4 %; Platelet Count 386 K/mcL (140-400); Red Cell Distribution Width 16.7 % (11.5-14.5); Segmented Neutrophils % 89.9 %
[2017-05-26] MEDS ORDERED: Levofloxacin 750 MG/150 ML 750 MG/150 ML BAG IVPB SCH (09:00)
--- NOTE | 2017-05-26 13:15 | Internal Med Progress Note ---
<Dallas Galvez - Last Filed: 05/26/17 13:13> Date of Encounter: 05/26/17 Time of Encounter: 13:13 - Assessment and plan (1) Acute respiratory failure Current Visit: Yes Status: Acute Assessment and plan: 2nd to acute asthma exacerbation on admission required bipap support and admitted to ICU Weaned off oxygen satting 98% on room air. This morning woke up with severe shortness of breath and wheezing. continue duoneb, steroids Qualifiers: Respiratory failure complication: hypoxia Qualified Code(s): J96.01 - Acute respiratory failure with hypoxia (2) Acute asthma exacerbation Current Visit: Yes Status: Resolved Assessment and plan: resolved cxr negative for acute infectious process lung exam: diffuse wheezing conitnue duonebs, IV steroids and symbicort: as still having severe wheezing sputum culture negative RIP pending order fungitell pending recommend seeing fiberglass bonding machine tender outpatient due to frequent admissions for acute asthma. Qualifiers: Asthma severity: severe Asthma persistence: persistent Qualified Code(s) : J45.51 - Severe persistent asthma with (acute) exacerbation (3) DVT prophylaxis Current Visit: Yes Status: Acute Assessment and plan: heparin SQ - Subjective Interval history: Patient reported this morning that she woke up with shortness of breath. She continues to have diffuse wheezing. She reports having headache this morning. Denies cough, sputum, chest pain, abdominal pain. - Constitutional Vitals: Temp Pulse Resp BP Pulse Ox 99.6 F 90 16 134/87 98 05/26/17 11:26 05/26/17 11:26 05/26/17 11:26 05/26/17 11:26 05/26/17 11:26 General appearance: Present: cooperative, A&O X 3, pleasant, severe distress ( respiratory), answers questions appropriately - Other Additional findings: General: pleasant without distress Heart: Regular rate and rhythm with no murmur Lungs: diffsue wheezing Abdomen: Soft nontender, nondistended positive bowel sounds Skin: warm and dry Extremities: Absent pedal edema, Neuro: alert and oriented x3 Vascular: Pedal and radial pulses 2 out of 4 Internal Medicine: Result - Labs CBC & Chem 7: 05/26/17 06:11 05/25/17 04:07 Labs: Short CBC 05/26/17 Range/Units 06:11 WBC 10.0 (4.3-11.1) K/mcL Hgb 11.5 (11.5-15.4) g/dL Hct 37.2 (35.3-44.9) % Plt Count 386 (140-400) K/mcL Neutrophils # 9.0 H (1.6-8.9) K/mcL - ABG Interpretation ABG results: ABG ABG pH 7.39 pH Units (7.32-7.45) 05/25/17 01:37 ABG pCO2 34 mmHg (35-45) L 05/25/17 01:37 ABG pO2 74 mmHg (85-104) L 05/25/17 01:37 ABG O2 Saturation 95 % (95-98) 05/25/17 01:37 Consult Discharge Plan - Plan Referrals: Rolando Varela MD [Primary Care Provider] - <Anibal Meadows - Last Filed: 05/26/17 16:23> Date of Encounter: 05/26/17 - Assessment and plan (1) Acute respiratory failure Current Visit: Yes Status: Acute Qualifiers: Respiratory failure complication: hypoxia Qualified Code(s): J96.01 - Acute respiratory failure with hypoxia (2) Acute asthma exacerbation Current Visit: Yes Status: Resolved Qualifiers: Asthma severity: severe Asthma persistence: persistent Qualified Code(s) : J45.51 - Severe persistent asthma with (acute) exacerbation (3) DVT prophylaxis Current Visit: Yes Status: Acute - Constitutional Vitals: Temp Pulse Resp BP Pulse Ox 98.5 F 93 16 135/95 94 05/26/17 15:43 05/26/17 15:43 05/26/17 16:19 05/26/17 15:43 05/26/17 16:19 Internal Medicine: Result - Labs CBC & Chem 7: 05/26/17 06:11 05/25/17 04:07 Labs: Short CBC 05/26/17 Range/Units 06:11 WBC 10.0 (4.3-11.1) K/mcL Hgb 11.5 (11.5-15.4) g/dL Hct 37.2 (35.3-44.9) % Plt Count 386 (140-400) K/mcL Neutrophils # 9.0 H (1.6-8.9) K/mcL - ABG Interpretation ABG results: ABG ABG pH 7.39 pH Units (7.32-7.45) 05/25/17 01:37 ABG pCO2 34 mmHg (35-45) L 05/25/17 01:37 ABG pO2 74 mmHg (85-104) L 05/25/17 01:37 ABG O2 Saturation 95 % (95-98) 05/25/17 01:37 - Attending Attestation acute asthma attack, acute bronchitis needs allergy testing as outpatient leukocytosis, nonspecific I examined this patient and my medical decision-making was reviewed with the Resident Physician. I agree with the documented findings, disposition and treatment plan as described except to the extent set forth below.
[2017-05-26] MEDS ORDERED: Budesonide/Formoterol 160/4.5 MDI IH PRN (13:16)
[2017-05-26] MEDS ORDERED: *HR* OxyCODONE Immed Rel 5 MG TABLET PO PRN (13:20)
[2017-05-26] MEDS: traZODone 50 MG TABLET PO PRN (20:50)
[2017-05-27] MEDS: methylPREDNISolone 125 MG/2 ML VIAL IVP SCH ×2 (00:02→05:55)
[2017-05-27] MEDS: Acetaminophen 325 MG TABLET PO PRN (00:04)
[2017-05-27] MEDS: Ipratropium/Albuterol Neb 3 ML IH SCH ×4 (00:27→11:16)
[2017-05-27] MEDS: *HR* Heparin 5,000 UNIT/ML VIAL SQ SCH (05:55)
[2017-05-27 07:22] VITALS: BP 133/87
[2017-05-27] MEDS ORDERED: levoFLOXacin 750 MG TABLET PO SCH (09:00)
[2017-05-27] MEDS ORDERED: Famotidine 20 MG TABLET PO SCH (09:00)
--- NOTE | 2017-05-27 10:42 | Discharge Summary ---
<Dallas Galvez - Last Filed: 05/27/17 10:40> - NOTES TO OUTPATIENT PROVIDER Notes to Outpatient Provider: Patient admitted for asthma exacerbation. Patient has had over 10 ER/hospital visits for asthma exacerbation in the past year. She required BiPAP support initially and was started on IV Solu-Medrol. Patient required IV Solu-Medrol for 4 days. She will be sent home on a long and is on taper. She is being referred to allergy/immunology for further evaluation of her asthma. Orders not resulted at time of discharge: Pending orders 05/25/17 13:22 Respiratory Infection Panel [MOLMIC] Routine 05/25/17 13:41 Fungitell (1,3)-ppgx-L-Garqvj Stat Date of Encounter: 05/27/17 Time of Encounter: 10:40 - Discharge Diagnosis (1) Acute respiratory failure Priority: Primary Status: Acute Qualifiers: Respiratory failure complication: hypoxia Qualified Code(s): J96.01 - Acute respiratory failure with hypoxia (2) Acute asthma exacerbation Priority: Secondary Status: Resolved Qualifiers: Asthma severity: severe Asthma persistence: persistent Qualified Code(s) : J45.51 - Severe persistent asthma with (acute) exacerbation (3) DVT prophylaxis Priority: Secondary Status: Acute Hospital course: Ms. Parra is a 41 year old female with 30 year history of asthma presented with chief complaint of shortness of breath. She reports she has had shortness of breath for the 3 days before admission which has been refractory to home nebulizer, albuterol inhaler and Symbicort treatments. In the ER patient required BiPAP support and was transferred to the ICU due to her severe respiratory symptoms. She was started on IV Solu-Medrol, DuoNeb nebulizer treatments and Levaquin. Patient's chest x-ray was negative for any acute infectious process. On admission her lung exam noted diffuse wheezing. Sputum culture and blood cultures were sent and was negative. Patient was negative for influenza type A, type B and RSV. She has leukocytosis 16.3 on admission which resolved the next day. Patient was able to be weaned off BiPAP to oxygen via nasal cannula and then off oxygen. Patient received 4 days of high-dose IV Solu-Medrol. This morning she has minimal wheezing and denies shortness of breath, cough. She will be sent on a long prednisone taper. She will also be set up with an solar project engineer appointment outpatient. Patient reports that ever since moving to [place] 13 years ago her asthma has worsened. In the last 3 years she has had multiple visits to the emergency room and admission secondary to asthma exacerbations. She did say she moved into a new house 2 years ago. She denies any occupational exposures. She reports having 2 cats at home. She denies mold in the house. She has never had allergy test in the past. Pending labs to follow on: Fungitell Discharge discussed with: patient - Time Spent with Patient Total time spent providing and/or coordinating discharge services: Greater than 30 minutes - Discharge Medications Prescriptions: Albuterol Sulfate [Proair Hfa] 2 puff IH Q6H PRN #1 hfa.aer.ad PRN Reason: Dyspnea predniSONE [PredniSONE] 20 mg PO TAPER #62 tablet Home Medications: Ipratropium/Albuterol Neb [Duoneb] 3 ml IH Q6HR PRN 02/09/17 [History] Budesonide/Formoterol 160/4.5 [Symbicort 160/4.5] 1 puff IH BIDR PRN 05/25/17 [ History] Ranitidine HCl [Acid Retail Loan Originator] 75 mg PO DAILY 05/25/17 [History] Albuterol Sulfate [Proair Hfa] 2 puff IH Q6H PRN #1 hfa.aer.ad 05/27/17 [Rx] predniSONE [PredniSONE] 20 mg PO TAPER #62 tablet 05/27/17 [Rx] Allergies/Adverse Reactions: 3 Allergy/AdvReac Type Severity Reaction Status Date / Time Amoxicillin Allergy Severe See Verified 05/25/17 10:51 Comments Penicillins Allergy Severe See Verified 05/25/17 10:51 Comments Date of admission: 05/25/17 02:00 Primary care physician: Rolando Varela Discharging clinician: Dallas Galvez Anticipated date of discharge: 05/27/17 - Constitutional Vitals: Temp Pulse Resp BP Pulse Ox 98.4 F 89 16 133/87 93 05/27/17 07:21 05/27/17 07:21 05/27/17 07:21 05/27/17 07:21 05/27/17 07:21 General appearance: Present: cooperative, A&O X 3, pleasant, severe distress ( respiratory), answers questions appropriately - Head Head exam: Present: atraumatic, normocephalic - Eye Eye exam: Present: PERRL, conjuntiva pink, sclera anicteric - Neck Neck exam general surgery: Present: supple, trachea midline. Absent: lymphadenopathy - Respiratory Respiratory exam: Present: CTAB. Absent: accessory muscle use, rales, rhonchi, wheezes - Cardiovascular Cardiovascular exam: Present: RRR, +S1, +S2. Absent: diastolic murmur, gallop, rubs, systolic murmur - GI/Abdominal GI/Abdominal exam: Present: normal bowel sounds, soft, no peritoneal signs. Absent: distended, tenderness - Extremities Exam Extremities exam: Present: warm, radial pulses palpable and symmetrical. Absent : calf tenderness, cyanotic, pedal edema - Neurological Exam Neurological exam: Present: CN II-XII intact, oriented X3, no focal deficits. Absent: pronater drift, facial droop, speech deficit - Skin Skin exam: Present: dry, intact - Patient Status Disposition: Home, Self-Care Condition: Fair Functional capacity at discharge: independent ambulation Overall status at discharge: patient is progressing back to baseline - Discharge Instructions Instructions: Asthma (DC), How to Stop Smoking (DC), How to Stop Smoking (GEN) , Cigarette Smoking and Your Health (GEN), Secondhand Smoke Exposure in Children (GEN), Cigarette Smoking and Your Health, Communications Director (GEN), How to Stop Smoking, Communications Director (GEN) Follow Up With: Jazlyn Cui MD [Partnered Physician] - 06/08/17 10:45 am (Patient admitted for asthma exacerbation. Patient has had over 10 ER/hospital visits for asthma exacerbation in the past year. She required BiPAP support initially and was started on IV Solu-Medrol. Patient required IV Solu-Medrol for 4 days. She will be sent home on a long and is on taper. She is being referred to allergy/ immunology for further evaluation of her asthma. Pending lab: maru. ) Rolando Varela MD [Primary Care Provider] - (instructed to follow up with [facility] client not willing to wait for us to make appt ) Forms: Work/School Release - Diet and Activity Activity: increase activity as tolerated Diet: advance to your usual diet <Peter-Matovelle,Anibal H - Last Filed: 05/27/17 12:45> Orders not resulted at time of discharge: Pending orders 05/25/17 13:22 Respiratory Infection Panel [MOLMIC] Routine 05/25/17 13:41 Fungitell (1,3)-vurd-E-Oifwgp Stat Date of Encounter: 05/27/17 - Discharge Diagnosis (1) Acute respiratory failure Status: Acute Qualifiers: Respiratory failure complication: hypoxia Qualified Code(s): J96.01 - Acute respiratory failure with hypoxia (2) Acute asthma exacerbation Status: Resolved Qualifiers: Asthma severity: severe Asthma persistence: persistent Qualified Code(s) : J45.51 - Severe persistent asthma with (acute) exacerbation (3) DVT prophylaxis Status: Acute Hospital course: Ms. Parra is a 41 year old female - Time Spent with Patient Total time spent providing and/or coordinating discharge services: Date of admission: 05/25/17 02:00 Primary care physician: Rolando Varela - Constitutional Vitals: Temp Pulse Resp BP Pulse Ox 98.4 F 89 16 133/87 93 05/27/17 07:21 05/27/17 07:21 05/27/17 07:21 05/27/17 07:21 05/27/17 07:21 - Attending Attestation acute severe asthma attack, acute bronchitis needs allergy testing as outpatient, follow up with pulmonary leukocytosis, nonspecific slow prednisone taper time spent 40 min I examined this patient and my medical decision-making was reviewed with the Resident Physician. I agree with the documented findings, disposition and treatment plan as described except to the extent set forth below.
== END 2017-05-27 11:50 | disposition home or self-care (01) | DRG 202 ==
LOC: EMEROO 22:21 → 2ANU 22:21 → ICNU 05-25 01:56 → 2ANU 05-25 10:03
PROVIDERS: ADMIT Internal Medicine; ATTEND Internal Medicine

== ENCOUNTER 2017-08-12 03:03 | Inpatient (IN) ==
[2017-08-12] MEDS ORDERED: Ipratropium/Albuterol Neb 3 ML IH ONE ×2 (03:16→10:03)
[2017-08-12] MEDS ORDERED: methylPREDNISolone 125 MG/2 ML VIAL IVP ONE (03:16)
[2017-08-12 03:31] LABS: Basophils # 0.1 K/mcL (0.0-0.2); Basophils % 0.6 %; Eosinophils # 0.7 K/mcL (0.0-0.6); Hemoglobin 12.3 g/dL (11.5-15.4); Immature Granulocytes % 0.2 % (0-4); Lymphocytes % 30.3 %; Mean Corpuscular HGB Conc 33.2 g/dL (31.6-35.5); Mean Corpuscular Volume 87.3 fL (83.0-100.0); Monocytes # 0.9 K/mcL (0.0-1.3); Monocytes % 8.9 %; Neutrophils # 5.3 K/mcL (1.6-8.9); Platelet Count 352 K/mcL (140-400); Red Blood Count 4.24 M/mcL (3.82-4.97); Red Cell Distribution Width 15.7 % (11.5-14.5)
--- NOTE | 2017-08-12 03:37 | Emergency Department Note ---
Disposition Clinical Impression: Status asthmaticus Asthma with exacerbation Qualifiers: Asthma severity: moderate Asthma persistence: persistent Qualified Code(s): J45.41 - Moderate persistent asthma with (acute) exacerbation Disposition: Admitted As Inpatient Condition: Fair Referrals: Rolando Varela MD [Primary Care Provider] - Forms: ED Satisfaction Letter Time of Disposition: 05:45 SOB HPI - General Chief Complaint: ED Shortness of Breath/Dyspnea Stated Complaint: sob Time Seen by Provider: 08/12/17 03:16 Source: patient, family Mode of arrival: ambulatory Limitations: no limitations Nursing Notes Reviewed: Yes Vital Signs Reviewed: Yes - History of Present Illness Patient presents to the ED with a 3 day history of shortness of breath. Patient has a history of asthma. States she has been using her inhalers at home without relief. Does not take steroids daily. Denies any fever or chills. No chest pain, but does have associated chest tightness. She has a mild nonproductive cough. No abdominal pain, nausea, vomiting or diarrhea. No history of DVT, PE or malignancy. She does report that she has had pneumonia in the past, but this does not feel like that. - Related Data Home Medications Medication Instructions Recorded Confirmed Ipratropium/Albuterol Neb [Duoneb] 3 ml IH Q6HR PRN 02/09/17 05/25/17 Budesonide/Formoterol 160/4.5 1 puff IH BIDR PRN 05/25/17 05/25/17 [Symbicort 160/4.5] Ranitidine HCl [Acid Fusing Machine Feeder] 75 mg PO DAILY 05/25/17 05/25/17 Previous Rx's Medication Instructions Recorded Albuterol Sulfate [Proair Hfa] 2 puff IH Q6H PRN #1 hfa.aer.ad 05/27/17 predniSONE [PredniSONE] 20 mg PO TAPER #62 tablet 05/27/17 Allergies Allergy/AdvReac Type Severity Reaction Status Date / Time Amoxicillin Allergy Severe See Verified 08/12/17 03:11 Comments Penicillins Allergy Severe See Verified 08/12/17 03:11 Comments Review of Systems: As reviewed in the HPI. All other systems reviewed are negative or normal. Past Medical History - Past Medical History Attestation: Yes The following information was validated with the patient. 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: Reports: non-contributory - Social History Smoking Status: Former smoker Smokeless Tobacco Status: No Alcohol use: Reports: rarely Drug use: Reports: none Physical Exam - General Limitations: no limitations General appearance: alert, in distress (Respiratory) - Head Head exam: atraumatic, normocephalic, normal inspection - ENT ENT exam: normal exam, normal oropharynx, mucous membranes moist - Neck Neck exam: Present: normal inspection, full ROM, trachea midline - Chest Chest inspection: Present: normal inspection, symmetric chest wall rise - Respiratory Respiratory exam: Present: respiratory distress, wheezes, accessory muscle use. Absent: normal lung sounds bilaterally - Expanded Respiratory Exam Location: wheezes: Left, Right, Upper, Lower - Cardiovascular Cardiovascular exam: Present: tachycardia, normal heart sounds - Abdominal Exam Abdominal exam: Present: soft, Non-Tender. Absent: tenderness, distention, guarding, rebound, rigidity - Extremities Exam Extremities exam: Present: normal inspection, full ROM. Absent: tenderness, pedal edema Course Course Narrative: Patient presenting with suspected asthma exacerbation. Will give 3 nebs and steroids and reevaluate - Reevaluation(s) Reevaluation #1: Patient's wheezing has improved and her respiratory distress has also improved after the DuoNeb nebs. However, she did begin working hard to breathe again. Her wheezing did return. We will go ahead and administer another 3 albuterol, as well as magnesium and admit her to the hospital service. Does not appear to be tiring out and is maintaining her sats above 90% on 2 L of oxygen. Vital Signs Temperature 98.0 F 08/12/17 03:11 Pulse Rate 108 08/12/17 03:11 Respiratory Rate 28 08/12/17 03:11 Blood Pressure 150/93 08/12/17 03:11 O2 Sat by Pulse Oximetry 90 08/12/17 03:11 Temperature 98.0 F 08/12/17 03:11 Pulse Rate 105 08/12/17 04:00 Respiratory Rate 22 08/12/17 05:45 Blood Pressure 156/105 08/12/17 04:00 O2 Sat by Pulse Oximetry 97 08/12/17 05:45 Oxygen Delivery Oxygen Delivery Room Air Shortness of Breath/Dyspnea - Medical Records Medical records reviewed: Yes I reviewed the patient's medical records. - Lab Data Lab results reviewed: Yes I reviewed the patient's lab results. Result diagrams: 08/12/17 03:21 08/12/17 03:21 Lab Results 08/12/17 08/12/17 08/12/17 Range/Units 03:21 03:21 03:21 WBC 10.0 (4.3-11.1) K/mcL RBC 4.24 (3.82-4.97) M/mcL Hgb 12.3 (11.5-15.4) g/dL Hct 37.0 (35.3-44.9) % MCV 87.3 (83.0-100.0) fL MCH 29.0 (28.0-33.3) pg MCHC 33.2 (31.6-35.5) g/dL RDW 15.7 H (11.5-14.5) % Plt Count 352 (140-400) K/mcL MPV 8.0 L (9.4-12.4) fL Immature Gran % 0.2 (0-4) % Seg Neutrophils % 53.0 % Lymphocytes % 30.3 % Monocytes % 8.9 % Eosinophils % 7.0 % Basophils % 0.6 % Neutrophils # 5.3 (1.6-8.9) K/mcL Lymphocytes # 3.0 (0.6-4.6) K/mcL Monocytes # 0.9 (0.0-1.3) K/mcL Eosinophils # 0.7 H (0.0-0.6) K/mcL Basophils # 0.1 (0.0-0.2) K/mcL Sodium 138 (136-145) mEq/L Potassium 3.5 (3.5-5.1) mEq/L Chloride 107 (98-107) mEq/L Carbon Dioxide 22 L (23-29) mEq/L BUN 10 (6-20) mg/dL Creatinine 0.58 L (0.60-1.20) mg/dL Est GFR ( Amer) > 60 (> 60) Est GFR (Non-Af Amer) > 60 (> 60) BUN/Creatinine Ratio 17 (6-26) Glucose 121 H (70-105) mg/dL Calculated Osmolality 286 (280-300) Lactic Acid 0.9 (0.5-2.2) mmol/L Calcium 9.4 (8.6-10.3) mg/dL - Radiology Data Radiology results reviewed: Yes I reviewed the patient's radiology results. - EKG Data EKG attestation: Yes I reviewed and interpreted this EKG. EKG results narrative: Sinus tach, rate 102, VT interval 134, QRS 84, QTC 386, normal axis, no acute ischemic changes S.B.A.R. - S.Myles.A.Omaira Situation: Demographics, MOA Background: Presenting Complaint, Relevant PMH, Meds, & Allergies Assessment: Vital Signs, Course and respsone to treatment, Exam Concerns, Patient/Family Expectation, Pertinant Lab Results, Outstanding Labs Recommendation: Recommendation based on pending studies, treatments, or consults S.B.A.R. Report Given to: Dr. Ayush CardonaBCorrieAMarilynn Repor Time: 05:46 Attestation Statement - Attestation Attestation: I examined this patient and my medical decision-making was reviewed with the Resident Physician. I agree with the documented findings, disposition and treatment plan as described except to the extent set forth below.
[2017-08-12 03:50] LABS: BUN/Creatinine Ratio 17 (6-26); Blood Urea Nitrogen 10 mg/dL (6-20); Calcium 9.4 mg/dL (8.6-10.3); Carbon Dioxide 22 mEq/L (23-29); Chloride 107 mEq/L (98-107); Glucose 121 mg/dL (70-105); Osmolality,Calculated 286 (280-300); Potassium 3.5 mEq/L (3.5-5.1); Sodium 138 mEq/L (136-145); eGFR For African Americans > 60 (> 60); eGFR For Non-African Americans > 60 (> 60)
[2017-08-12] MEDS ORDERED: Albuterol Neb 1.25 MG/3 ML VIAL IH ONE (05:32)
[2017-08-12] MEDS ORDERED: Albuterol 2.5 MG/3 ML NEBULIZER IH ONE (05:38)
[2017-08-12] MEDS ORDERED: Naloxone 0.4 MG/ML INJ IVP PRN (06:02)
--- NOTE | 2017-08-12 06:07 | Internal Med History&Physical ---
Date of Encounter: 08/12/17 Time of Encounter: 06:05 Internal Medicine - H&P: HPI Chief complaint: Shortness of breath History of present illness: Ms. Parra is a 42 year old female with a history of asthma who presents with acute asthmatic exacerbation. She reports a history of intermittent recurrent asthmatic exacerbation where she was previously seen. In regards to this episode, she developed one half day history of worsening shortness of breath. Shortness of breath was on exertion and improved with rest. Symptoms got worse with increased work of breathing and difficulty completing sentences. She denies any smoking. She does not see a well reactivator operator and is managed by PCP with inhalers alone. EKG personally reviewed with rate of 102, sinus tachycardia FINDINGS: There is subtle right basilar airspace disease. The heart size is within normal limits. There is no definite pleural effusion or pneumothorax. Past Med Surg Social Fam HX - Past Medical History Medical history: asthma, kidney stones Psychiatric history: depression - Past Surgical History Surgical History: - Social History Smoking Status: Former smoker Smokeless Tobacco Status: No Alcohol use: rarely Drug use: none - Family History Father Family Member Ethnicity: Non- Living Status: Still Living Hx Family Cardiac Disorders: No Hx Family Respiratory Disorders: No Hx Family Cancer: No Hx Family GI Disorders: No Hx Family Endocrine Disorder: No Hx Family Neuromuscular Disorders: Yes (MS) Hx Family Neurologic Disorders: No Hx Family HEENT Disorders: No Hx Family Autoimmune Disorders: No Mother Family Member Ethnicity: Non- Living Status: Still Living Hx Family Cardiac Disorders: Yes (HTN) Hx Family Respiratory Disorders: No Hx Family Cancer: No Hx Family GI Disorders: No Hx Family Endocrine Disorder: Yes (DM) Hx Family Neuromuscular Disorders: No Hx Family Neurologic Disorders: No Hx Family HEENT Disorders: No Hx Family Autoimmune Disorders: No Internal Medicine - H&P: Meds Ipratropium/Albuterol Neb [Duoneb] 3 ml IH Q6HR PRN 02/09/17 [History] Budesonide/Formoterol 160/4.5 [Symbicort 160/4.5] 1 puff IH BIDR PRN 05/25/17 [ History] Ranitidine HCl [Acid Control Valve Technician] 75 mg PO DAILY 05/25/17 [History] Albuterol Sulfate [Proair Hfa] 2 puff IH Q6H PRN #1 hfa.aer.ad 05/27/17 [Rx] predniSONE [PredniSONE] 20 mg PO TAPER #62 tablet 05/27/17 [Rx] 3 Allergy/AdvReac Type Severity Reaction Status Date / Time Amoxicillin Allergy Severe See Verified 08/12/17 03:11 Comments Penicillins Allergy Severe See Verified 08/12/17 03:11 Comments All Systems PM: A 10-system review of systems was performed and is negative for pertinent findings except as documented above in the HPI. Review of systems: ROS 14 point review of systems reviewed as best as possible given presentation. Pertinent positive or negative as per HPI or otherwise reviewed as negative - Constitutional Vitals: Temp Pulse Resp BP Pulse Ox 98.0 F 105 22 156/105 97 08/12/17 03:11 08/12/17 04:00 08/12/17 05:45 08/12/17 04:00 08/12/17 05:45 Exam: General - AAO x 3 Eyes - YANNI. Eye lids intact. No scleral icterus Neuro - No gross peripheral or central neuro deficits on inspection Heart - Sinus. RRR. S1 and S2 present. No added HS/murmurs appreciated. No elevated JVD appreciated. Lung - decreased air entry b/l, diffuse wheezes throughout, no crackles GI - Soft, non-tender. No hepatosplenomegaly/ascites. BS+ - No CVA/suprapubic tenderness or palpable bladder distension Skin - Intact. No rash/petechiae/ecchymosis. Warm extremities MSK - Joints with normal ROM. No joint swellings Internal Med - H&P Results - Labs CBC & Chem 7: 08/12/17 03:21 08/12/17 03:21 Labs: Short CBC 08/12/17 Range/Units 03:21 WBC 10.0 (4.3-11.1) K/mcL Hgb 12.3 (11.5-15.4) g/dL Hct 37.0 (35.3-44.9) % Plt Count 352 (140-400) K/mcL Neutrophils # 5.3 (1.6-8.9) K/mcL BMP 08/12/17 03:21 Sodium 138 Potassium 3.5 Chloride 107 Carbon Dioxide 22 L BUN 10 Creatinine 0.58 L Glucose 121 H Calcium 9.4 - Impressions ITS Impressions Chest X-Ray 08/12/17 03:16 IMPRESSION: Right basilar atelectasis or pneumonia. D/ / Chad Araujo MD / Chad Araujo MD Interpreting Provider: Chad Araujo MD - Assessment and plan (1) Asthma with exacerbation Current Visit: Yes Status: Acute Assessment and plan: IV Solu-Medrol, DuoNeb's, IV magnesium Chest x-ray with subtle infiltrate status questionable. Send serologies, start empiric IV Levaquin BiPAP for increased work of breathing Telemetry, pulse ox Admit to Stepdown for close monitoring for impending respiratory failure should symptoms worsen Qualifiers: Asthma severity: moderate Asthma persistence: persistent Qualified Code(s ): J45.41 - Moderate persistent asthma with (acute) exacerbation (2) Acute respiratory failure Current Visit: Yes Status: Acute Assessment and plan: We would treat asthma above Qualifiers: Respiratory failure complication: hypoxia Qualified Code(s): J96.01 - Acute respiratory failure with hypoxia - Time Spent With Patient Total time spent is greater than 50% in coordination of care (as documented) at patient's floor/unit and/or counseling patient:
--- NOTE | 2017-08-12 06:10 | Emergency Department Note ---
Disposition Clinical Impression: Asthma with exacerbation Qualifiers: Asthma severity: moderate Asthma persistence: persistent Qualified Code(s): J45.41 - Moderate persistent asthma with (acute) exacerbation Status asthmaticus Qualifiers: Asthma severity: moderate Asthma persistence: persistent Qualified Code(s): J45.42 - Moderate persistent asthma with status asthmaticus Disposition: Admitted As Inpatient Condition: Fair Referrals: Rolando Varela MD [Primary Care Provider] - Forms: ED Satisfaction Letter Time of Disposition: 06:11 General Adult HPI - General Chief complaint: ED Shortness of Breath/Dyspnea Stated complaint: sob Time Seen by Provider: 08/12/17 03:16 Source: patient, family Mode of arrival: ambulatory Limitations: no limitations - History of Present Illness Pain Scale: 0 - Related Data Home Medications Medication Instructions Recorded Confirmed Ipratropium/Albuterol Neb [Duoneb] 3 ml IH Q6HR PRN 02/09/17 05/25/17 Budesonide/Formoterol 160/4.5 1 puff IH BIDR PRN 05/25/17 05/25/17 [Symbicort 160/4.5] Ranitidine HCl [Acid Facility Environmental Technician] 75 mg PO DAILY 05/25/17 05/25/17 Previous Rx's Medication Instructions Recorded Albuterol Sulfate [Proair Hfa] 2 puff IH Q6H PRN #1 hfa.aer.ad 05/27/17 predniSONE [PredniSONE] 20 mg PO TAPER #62 tablet 05/27/17 Allergies Allergy/AdvReac Type Severity Reaction Status Date / Time Amoxicillin Allergy Severe See Verified 08/12/17 03:11 Comments Penicillins Allergy Severe See Verified 08/12/17 03:11 Comments Past Medical History - Past Medical History Medical history: Reports: asthma, kidney stones Surgical history: Reports: Psychiatric history: Reports: depression WILTON WEAVER history: Reports: non-contributory - Social History Smoking Status: Former smoker Smokeless Tobacco Status: No Alcohol use: Reports: rarely Drug use: Reports: none Physical Exam - General Limitations: no limitations General appearance: alert, in distress (Respiratory) Course Vital Signs Temperature 98.0 F 08/12/17 03:11 Pulse Rate 108 08/12/17 03:11 Respiratory Rate 28 08/12/17 03:11 Blood Pressure 150/93 08/12/17 03:11 O2 Sat by Pulse Oximetry 90 08/12/17 03:11 Temperature 98.0 F 08/12/17 03:11 Pulse Rate 105 08/12/17 04:00 Respiratory Rate 22 08/12/17 05:45 Blood Pressure 156/105 08/12/17 04:00 O2 Sat by Pulse Oximetry 97 08/12/17 05:45 Oxygen Delivery Oxygen Delivery Room Air Medical Decision Making - Lab Data Result diagrams: 08/12/17 03:21 08/12/17 03:21 Lab Results 08/12/17 08/12/17 08/12/17 Range/Units 03:21 03:21 03:21 WBC 10.0 (4.3-11.1) K/mcL RBC 4.24 (3.82-4.97) M/mcL Hgb 12.3 (11.5-15.4) g/dL Hct 37.0 (35.3-44.9) % MCV 87.3 (83.0-100.0) fL MCH 29.0 (28.0-33.3) pg MCHC 33.2 (31.6-35.5) g/dL RDW 15.7 H (11.5-14.5) % Plt Count 352 (140-400) K/mcL MPV 8.0 L (9.4-12.4) fL Immature Gran % 0.2 (0-4) % Seg Neutrophils % 53.0 % Lymphocytes % 30.3 % Monocytes % 8.9 % Eosinophils % 7.0 % Basophils % 0.6 % Neutrophils # 5.3 (1.6-8.9) K/mcL Lymphocytes # 3.0 (0.6-4.6) K/mcL Monocytes # 0.9 (0.0-1.3) K/mcL Eosinophils # 0.7 H (0.0-0.6) K/mcL Basophils # 0.1 (0.0-0.2) K/mcL Sodium 138 (136-145) mEq/L Potassium 3.5 (3.5-5.1) mEq/L Chloride 107 (98-107) mEq/L Carbon Dioxide 22 L (23-29) mEq/L BUN 10 (6-20) mg/dL Creatinine 0.58 L (0.60-1.20) mg/dL Est GFR ( Amer) > 60 (> 60) Est GFR (Non-Af Amer) > 60 (> 60) BUN/Creatinine Ratio 17 (6-26) Glucose 121 H (70-105) mg/dL Calculated Osmolality 286 (280-300) Lactic Acid 0.9 (0.5-2.2) mmol/L Calcium 9.4 (8.6-10.3) mg/dL Attestation Statement - Attestation Attestation: I examined this patient and my medical decision-making was reviewed with the Resident Physician. I agree with the documented findings, disposition and treatment plan as described except to the extent set forth below. 42-year-old female presents ED because of difficulty breathing respiratory distress. She has a history of asthma. Symptoms have been the exacerbating for the past 24 hours and then precipitously worsen tonight. Denies any productive cough. No fevers or chills. No pain. No abdominal pain. Patient is tachypneic with moderate use of respiratory sensory muscles. Oropharynx is clear mucous membranes membranes dry. Neck is supple. Trachea midline. Chest with diffuse biphasic wheezes in all lung [place] with grossly diminished breath sounds bilaterally. Cardiac exam regular, tachycardic. Abdomen soft, nondistended nontender. Extremities warm and dry without asymmetric edema. Chest x-ray with some mild haziness in the right base concerning for possible pneumonia. She was given sequential DuoNeb treatments followed by additional sequential treatments of albuterol but was slow to progress. IV steroids along with IV magnesium administered and she is now being placed on BiPAP to assist with her respiratory effort. Seen in the ED by Dr. Peacock and will admit The high probability of a clinically significant, sudden or life threatening deterioration of the [cardiopulmonary] system(s) required my full and direct attention, intervention and personal management. The aggregate critical care time was [35] minutes. This time is in addition to time spent performing reported procedures but includes the following: [x] Data Review and interpretation [x] Patient assessment and monitoring of vital signs [x] Documentation [x] Medication orders and management
[2017-08-12] MEDS ORDERED: Ringers Solution, Lactated 1,000 ML IVC SCH (06:15)
[2017-08-12] MEDS: Levofloxacin 500 MG/100 ML 500 MG/100 ML BAG IVPB SCH (09:13)
[2017-08-12] MEDS: Ipratropium/Albuterol Neb 3 ML IH SCH ×3 (10:32→22:00)
[2017-08-12] MEDS: MethylPREDNISolone 40 MG/ML VIAL IVP SCH ×3 (11:36→23:11)
[2017-08-12] MEDS: *HR* Enoxaparin 40 MG/0.4 ML SYRINGE SQ SCH (11:37)
[2017-08-12 12:13] LABS: Adenovirus Not Detected (Not Detect); Bordetella Pertussis Not Detected (Not Detect); Chlamydophila pneumoniae Not Detected (Not Detect); Coronavirus 229E Not Detected (Not Detect); Coronavirus HKU1 Not Detected (Not Detect); Coronavirus NL63 Not Detected (Not Detect); Coronavirus OC43 Not Detected (Not Detect); Human Metapneumovirus Not Detected (Not Detect); Human Rhinovirus/Enterovirus Not Detected (Not Detect); Influenza A Subtype 2009 H1 Not Detected (Not Detect); Influenza A Untypeable Not Detected (Not Detect); Influenza B Not Detected (Not Detect); Mycoplasma pneumoniae Not Detected (Not Detect); Parainfluenza Virus 1 Not Detected (Not Detect); Parainfluenza Virus 2 Not Detected (Not Detect); Parainfluenza Virus 3 Not Detected (Not Detect); Parainfluenza Virus 4 Not Detected (Not Detect); Respiratory Syncytial Virus Not Detected (Not Detect)
--- NOTE | 2017-08-12 14:39 | Electrocardiograph Report ---
[address] [place], [place] [address] Test Date: 2017-08-12 Pat Name: Kim Parra Department: 104 Room: 3B47 Gender: F Paper Stripper: TONYA : 1975 Requested By: [id number] Order Number: [id number] Reading MD: Lillie Silav Measurements Intervals [place] Rate: 102 P: 54 [place]: 134 QRS: 60 QRSD: 84 T: 29 QT: 328 QTc: 386 Interpretive Statements SINUS TACHYCARDIA POSSIBLE LEFT ATRIAL ENLARGEMENT [-0.1mV P WAVE IN V1/V2] MINIMAL ST DEPRESSION [0.025+ mV ST DEPRESSION] ABNORMAL RHYTHM ECG Electronically Signed On 08-12-2017 14:38:02 EDT by Lillie Silva
[2017-08-12] MEDS: *HR* OxyCODONE/APAP 5/325 TABLET PO PRN ×2 (15:04→21:10)
--- NOTE | 2017-08-12 15:39 | Internal Med History&Physical ---
Date of Encounter: 08/12/17 Time of Encounter: 15:40 Internal Medicine - H&P: HPI Chief complaint: shortness of breath Admitted From: Home Plans for Post Hospital Care: Home History of present illness: Ms. Parra is a 42 year old female with hx of asthma diagnosed at 13 years old, former smoker, prior hx pneumonia. Pt states she developed difficulty breathing about 2 days ago. Denies cough/ greenish or yellowish sputum. Denies fever o chills. She denies sore throat or nasal congestion and states she is unaware of any seasonal allergy hx or symptoms. She reports having chest tightness and reports that it is hard to get a good deep breath. She reports using her neb x 2 at about 2 am this morning but it did not seem to help. She was placed on BiPAP in the ED due to increased work of breathing. Pt states she quit smoking 2 years ago. Past Med Surg Social Fam HX - Past Medical History Medical history: asthma, kidney stones Additional medical history: RECURRENT PNEUMONIA Psychiatric history: anxiety, depression - Past Surgical History Surgical History: Additional surgical history: 2 c-sections - Social History Smoking Status: Former smoker Smokeless Tobacco Status: No Alcohol use: rarely Drug use: none - Family History Father Family Member Ethnicity: Non- Living Status: Still Living Hx Family Cardiac Disorders: No Hx Family Respiratory Disorders: No Hx Family Cancer: No Hx Family GI Disorders: No Hx Family Endocrine Disorder: No Hx Family Neuromuscular Disorders: Yes (MS) Hx Family Neurologic Disorders: No Hx Family HEENT Disorders: No Hx Family Autoimmune Disorders: No Mother Family Member Ethnicity: Non- Living Status: Still Living Hx Family Cardiac Disorders: Yes (HTN) Hx Family Respiratory Disorders: No Hx Family Cancer: No Hx Family GI Disorders: No Hx Family Endocrine Disorder: Yes (DM) Hx Family Neuromuscular Disorders: No Hx Family Neurologic Disorders: No Hx Family HEENT Disorders: No Hx Family Autoimmune Disorders: No Internal Medicine - H&P: Meds Ipratropium/Albuterol Neb [Duoneb] 3 ml IH Q6HR PRN 02/09/17 [History] Budesonide/Formoterol 160/4.5 [Symbicort 160/4.5] 1 puff IH BIDR PRN 05/25/17 [ History] Albuterol Sulfate [Proair Hfa] 2 puff IH Q6H PRN #1 hfa.aer.ad 05/27/17 [Rx] 3 Allergy/AdvReac Type Severity Reaction Status Date / Time Amoxicillin Allergy Severe See Verified 08/12/17 06:42 Comments Penicillins Allergy Severe See Verified 08/12/17 06:42 Comments All Systems PM: A 10-system review of systems was performed and is negative for pertinent findings except as documented above in the HPI. - Constitutional Vitals: Temp Pulse Resp BP Pulse Ox 96.5 F L 104 28 133/79 98 08/12/17 15:23 08/12/17 15:23 08/12/17 15:23 08/12/17 15:23 08/12/17 15:23 General appearance: Present: A&O X 3 - Head Head exam: Present: atraumatic, normocephalic - Eye Eye exam: Present: PERRL, conjuntiva pink, sclera anicteric Pupils: Present: PERRL - Neck Neck exam general surgery: Present: supple, trachea midline. Absent: lymphadenopathy - Respiratory Respiratory exam: Present: wheezes Additional comments: conversational dyspnea. chest tightness and expiratory wheezes. - Cardiovascular Cardiovascular exam: Present: RRR, +S1, +S2. Absent: diastolic murmur, gallop, rubs, systolic murmur - GI/Abdominal GI/Abdominal exam: Present: normal bowel sounds, soft, no peritoneal signs. Absent: distended, tenderness - Extremities Exam Extremities exam: Present: warm, radial pulses palpable and symmetrical. Absent : calf tenderness, cyanotic, pedal edema - Neurological Exam Neurological exam: Present: CN II-XII intact, oriented X3, no focal deficits. Absent: pronater drift, facial droop, speech deficit - Skin Skin exam: Present: dry, intact Internal Med - H&P Results - Labs CBC & Chem 7: 08/12/17 03:21 08/12/17 03:21 - ABG Interpretation Interpretation: other Additional comments: ordered and pending - EKG Data Rate: tachycardia - EKG Data Prior EKG available for review: no - Diagnostic Studies Chest x-ray Additional comments: IMPRESSION: Right basilar atelectasis or pneumonia. - Assessment and plan (1) Acute respiratory failure Current Visit: Yes Status: Acute Assessment and plan: Pt placed on BiPAP in ED. Will check baseline ABG as she is still wheezing and tight. on oxygen at the moment at 4 L while eating but does have conversational dyspnea. Will likely place back on BiPAP after eating. Qualifiers: Respiratory failure complication: hypoxia Qualified Code(s): J96.01 - Acute respiratory failure with hypoxia (2) Asthma with exacerbation Current Visit: Yes Status: Acute Assessment and plan: Pt given steroids and neb treatment x 3 in ED> Will continue with neb treatments and taper steroids. Will check CXR again in am as pt has prior hx of PNA. Will add Zithromax for prophylaxis. Qualifiers: Asthma severity: moderate Asthma persistence: persistent Qualified Code(s ): J45.41 - Moderate persistent asthma with (acute) exacerbation (3) Former tobacco use Current Visit: No Status: Chronic Assessment and plan: Pt states she quit smoking. - Time Spent With Patient Total time spent is greater than 50% in coordination of care (as documented) at patient's floor/unit and/or counseling patient: 25 - 35 minutes
[2017-08-12 16:11] LABS: ABG Base Excess 1 mEq/L (-2 to 3); ABG HCO3 24 mEq/L (21-27); ABG Oxygen Saturation 99 % (95-98); ABG PCO2 31 mmHg (35-45); ABG PH 7.49 pH Units (7.32-7.45); ABG PO2 119 mmHg (85-104); ABG TCO2 25 mEq/L (20-26)
[2017-08-12] MEDS ORDERED: Budesonide/Formoterol 160/4.5 MDI IH PRN (16:33)
[2017-08-12] MEDS ORDERED: Ipratropium/Albuterol Neb 3 ML IH PRN (16:33)
[2017-08-13] MEDS: Ipratropium/Albuterol Neb 3 ML IH SCH ×4 (04:03→21:16)
[2017-08-13] MEDS: *HR* Enoxaparin 40 MG/0.4 ML SYRINGE SQ SCH (05:49)
[2017-08-13] MEDS: *HR* OxyCODONE/APAP 5/325 TABLET PO PRN (05:49)
[2017-08-13] MEDS: MethylPREDNISolone 40 MG/ML VIAL IVP SCH ×4 (05:49→23:07)
[2017-08-13 05:50] LABS: Basophils % 0.1 %; Hematocrit 36.6 % (35.3-44.9); Hemoglobin 11.8 g/dL (11.5-15.4); Immature Granulocytes % 0.5 % (0-4); Lymphocytes # 1.1 K/mcL (0.6-4.6); Lymphocytes % 6.8 %; Mean Corpuscular HGB Conc 32.2 g/dL (31.6-35.5); Mean Corpuscular Hemoglobin 28.2 pg (28.0-33.3); Mean Corpuscular Volume 87.4 fL (83.0-100.0); Mean Platelet Volume 8.4 fL (9.4-12.4); Monocytes # 0.5 K/mcL (0.0-1.3); Monocytes % 2.9 %; Platelet Count 355 K/mcL (140-400); Red Blood Count 4.19 M/mcL (3.82-4.97); Red Cell Distribution Width 15.9 % (11.5-14.5); Segmented Neutrophils % 89.7 %
[2017-08-13 06:14] LABS: BUN/Creatinine Ratio 21 (6-26); Blood Urea Nitrogen 10 mg/dL (6-20); Calcium 9.4 mg/dL (8.6-10.3); Carbon Dioxide 22 mEq/L (23-29); Chloride 107 mEq/L (98-107); Glucose 157 mg/dL (70-105); Osmolality,Calculated 286 (280-300); Potassium 4.3 mEq/L (3.5-5.1); Sodium 137 mEq/L (136-145); eGFR For African Americans > 60 (> 60); eGFR For Non-African Americans > 60 (> 60)
[2017-08-13] MEDS: Levofloxacin 500 MG/100 ML 500 MG/100 ML BAG IVPB SCH (09:38)
--- NOTE | 2017-08-13 10:32 | Internal Med Progress Note ---
Date of Encounter: 08/13/17 Time of Encounter: 10:30 - Assessment and plan (1) Acute respiratory failure Current Visit: Yes Status: Acute Assessment and plan: Pt had to be placed on BiPAP again at about 3:00am this morning due to increased work of breathing and hypoxia with saturation of 88% per pt. Will consult pulmonology for further recommendations; Qualifiers: Respiratory failure complication: hypoxia Qualified Code(s): J96.01 - Acute respiratory failure with hypoxia (2) Asthma with exacerbation Current Visit: Yes Status: Acute Assessment and plan: Continue current respiratory regimen. Consulting pulmonology to see. Will add Mucinex. Qualifiers: Asthma severity: moderate Asthma persistence: persistent Qualified Code(s ): J45.41 - Moderate persistent asthma with (acute) exacerbation (3) Former tobacco use Current Visit: No Status: Chronic Assessment and plan: Cessation strongly advised. (4) Leukocytosis Current Visit: No Status: Acute Assessment and plan: Likely due to steroid therapy. Remain afebrile. Has been on Levaquin for prophylaxis since admission. Qualifiers: Leukocytosis type: unspecified Qualified Code(s): D72.829 - Elevated white blood cell count, unspecified - Time Spent With Patient Total time spent is greater than 50% in coordination of care (as documented) at patient's floor/unit and/or counseling patient: less than 15 minutes - Subjective Interval history: Pt states she is feeling better but is still tight and wheezing. Denies productive cough and afebrile. States she does have some difficulty expectorating. - Constitutional Vitals: Temp Pulse Resp BP Pulse Ox 98.4 F 86 17 132/79 92 08/13/17 07:28 08/13/17 07:28 08/13/17 07:28 08/13/17 07:28 08/13/17 09:42 General appearance: Present: A&O X 3 - Head Head exam: Present: atraumatic, normocephalic - Eye Eye exam: Present: PERRL, conjuntiva pink, sclera anicteric Pupils: Present: PERRL - Neck Neck exam general surgery: Present: supple, trachea midline. Absent: lymphadenopathy - Respiratory Respiratory exam: Present: wheezes. Absent: accessory muscle use, rales, rhonchi Additional comments: Positive expiratory wheezes and some difficulty moving air with notable chest tightness slightly better form yesterday, 08/12/2017. - Cardiovascular Cardiovascular exam: Present: RRR, +S1, +S2. Absent: diastolic murmur, gallop, rubs, systolic murmur - GI/Abdominal GI/Abdominal exam: Present: normal bowel sounds, soft, no peritoneal signs. Absent: distended, tenderness - Extremities Exam Extremities exam: Present: warm, radial pulses palpable and symmetrical. Absent : calf tenderness, cyanotic, pedal edema - Neurological Exam Neurological exam: Present: CN II-XII intact, oriented X3, no focal deficits. Absent: pronater drift, facial droop, speech deficit - Skin Skin exam: Present: dry, intact Internal Medicine: Result - Labs CBC & Chem 7: 08/13/17 05:29 08/13/17 05:29 Labs: Short CBC 08/13/17 Range/Units 05:29 WBC 16.7 H D (4.3-11.1) K/mcL Hgb 11.8 (11.5-15.4) g/dL Hct 36.6 (35.3-44.9) % Plt Count 355 (140-400) K/mcL Neutrophils # 15.0 H (1.6-8.9) K/mcL BMP 08/13/17 05:29 Sodium 137 Potassium 4.3 Chloride 107 Carbon Dioxide 22 L BUN 10 Creatinine 0.48 L Glucose 157 H Calcium 9.4 - ABG Interpretation ABG results: ABG ABG pH 7.49 pH Units (7.32-7.45) H 08/12/17 16:08 ABG pCO2 31 mmHg (35-45) L 08/12/17 16:08 ABG pO2 119 mmHg (85-104) H 08/12/17 16:08 ABG O2 Saturation 99 % (95-98) H 08/12/17 16:08 - Impressions Impressions Chest X-Ray 08/13/17 04:00 IMPRESSION: No acute abnormality D/ / Santos Dhillon MD / Santos Dhillon MD Interpreting Provider: Santos Dhillon MD Consult Discharge Plan - Plan Referrals: Rolando Varela MD [Primary Care Provider] -
[2017-08-14] MEDS: Ipratropium/Albuterol Neb 3 ML IH SCH ×4 (03:55→22:49)
[2017-08-14] MEDS: MethylPREDNISolone 40 MG/ML VIAL IVP SCH ×3 (05:31→17:53)
[2017-08-14] MEDS: *HR* Enoxaparin 40 MG/0.4 ML SYRINGE SQ SCH (05:32)
[2017-08-14] MEDS: Ipratropium/Albuterol Neb 3 ML IH PRN (08:22)
[2017-08-14] MEDS: Levofloxacin 500 MG/100 ML 500 MG/100 ML BAG IVPB SCH (08:36)
--- NOTE | 2017-08-14 12:23 | Internal Med Progress Note ---
Date of Encounter: 08/14/17 Time of Encounter: 12:15 - Assessment and plan (1) Asthma with exacerbation Current Visit: Yes Status: Acute Assessment and plan: Acute respiratory failure secondary to exacerbation of asthma Patient reporting that since April 2017 she has been using her rescue inhaler 5-7 times daily Has had over 10 ER hospital visits for asthma exacerbation in the past year Was recently admitted in May 2017 requiring BiPAP for respiratory support and IV steroids During that time she was referred to allergy/immunology for further evaluation of her asthma d/w patient results of allergy/immunology evaluation During this admission, patient required BiPAP placement due to increased work of breathing, continue BiPAP when necessary Not on BiPAP this morning, tolerating nasal cannula, accessory muscle usage and inspiratory/expiratory wheezing noted maintaining O2 saturations greater than 90 % Continue current respiratory regimen of DuoNeb's, Symbicort, IV steroids Continue aBX coverage with Levaquin Consult to pulmonology-have follow shop estimator who will see the patient in consultation-awaiting further recommendations Qualifiers: Asthma severity: moderate Asthma persistence: persistent Qualified Code(s ): J45.41 - Moderate persistent asthma with (acute) exacerbation (2) Acute respiratory failure Current Visit: Yes Status: Acute Assessment and plan: See above Qualifiers: Respiratory failure complication: hypoxia Qualified Code(s): J96.01 - Acute respiratory failure with hypoxia - Time Spent With Patient Total time spent is greater than 50% in coordination of care (as documented) at patient's floor/unit and/or counseling patient: 25 - 35 minutes - Subjective Interval history: Admitted with acute respiratory failure secondary to asthma exacerbation. No acute changes overnight, seen and examined at bedside today. Patient continuing to report wheezing, cough and shortness of breath. She does not report that it is slightly improved today compared to yesterday. - Constitutional Vitals: Temp Pulse Resp BP Pulse Ox 98.1 F 104 16 132/86 94 08/14/17 11:46 08/14/17 11:46 08/14/17 11:46 08/14/17 11:46 08/14/17 11:46 General appearance: Present: A&O X 3 - Head Head exam: Present: atraumatic, normocephalic - Eye Eye exam: Present: PERRL, conjuntiva pink, sclera anicteric Pupils: Present: PERRL - Neck Neck exam general surgery: Present: supple, trachea midline. Absent: lymphadenopathy - Respiratory Respiratory exam: Present: accessory muscle use, CTAB, respiratory distress, wheezes (Inspiratory and expiratory wheezes throughout), tachypnea. Absent: chest wall tenderness, decreased breath sounds, prolonged expiratory phase, rales, rhonchi, stridor - Cardiovascular Cardiovascular exam: Present: RRR, +S1, +S2. Absent: diastolic murmur, gallop, rubs, systolic murmur - GI/Abdominal GI/Abdominal exam: Present: normal bowel sounds, soft, no peritoneal signs. Absent: distended, tenderness - Extremities Exam Extremities exam: Present: warm, radial pulses palpable and symmetrical. Absent : calf tenderness, cyanotic, pedal edema - Neurological Exam Neurological exam: Present: CN II-XII intact, oriented X3, no focal deficits. Absent: pronater drift, facial droop, speech deficit - Skin Skin exam: Present: dry, intact Internal Medicine: Result - Labs CBC & Chem 7: 08/13/17 05:29 08/13/17 05:29 - ABG Interpretation ABG results: ABG ABG pH 7.49 pH Units (7.32-7.45) H 08/12/17 16:08 ABG pCO2 31 mmHg (35-45) L 08/12/17 16:08 ABG pO2 119 mmHg (85-104) H 08/12/17 16:08 ABG O2 Saturation 99 % (95-98) H 08/12/17 16:08 Consult Discharge Plan - Plan Referrals: Rolando Varela MD [Primary Care Provider] -
--- NOTE | 2017-08-14 13:29 | Pulmonology Consult Note ---
Date of Encounter: 08/14/17 Time of Encounter: 13:00 Assessment and Plan (1) Acute respiratory failure Current Visit: Yes Status: Acute Acute respiratory failure now recovering most likely due to asthma exacerbation . Patient is on room air now . Qualifiers: Respiratory failure complication: hypoxia Qualified Code(s): J96.01 - Acute respiratory failure with hypoxia (2) Asthma with exacerbation Current Visit: Yes Status: Acute To continue the bronchodilators and steroids . To change symbicort BID regular patient never took BID symbicort at home . On discharge send her with twelve day taper steroids . Nebulizer , Regular BID of symbicort and antbiotics no evidence of pneumonia . Qualifiers: Asthma severity: moderate Asthma persistence: persistent Qualified Code(s ): J45.41 - Moderate persistent asthma with (acute) exacerbation (3) Chronic allergic rhinitis Current Visit: Yes Status: Acute Patient will need BID regular flonase (4) GERD (gastroesophageal reflux disease) Current Visit: Yes Status: Acute Patient has active GERD despite PPI therapy . consider GI consults Qualifiers: Qualified Code(s): K21.9 - Gastro-esophageal reflux disease without esophagitis (5) Sleep-disordered breathing Current Visit: Yes Status: Acute Patient will need outpatient PSG . Counseled about treating GRETCHEN in prevention of future risk of [place] , Heart failure and [place] History of Present Illness Consult date: 08/14/17 Requesting physician: Gavin Carty Reason for consult: asthma (Asthma Exacerbation ) Chief complaint: Shortness of breadth History of present illness: 42 year old female with past medical history significant for moderate persistent asthma , chronic allergic rhinitis, significant GERD patient's symptoms off shortness of breath daytime and nighttime wheezing card worse from month of April she got to episodes of hospitalization where she needed steroids and this admission severe enough that she needed to be put on BiPAP. Patient was admitted for asthma exacerbation slowly getting better with bronchodilators, steroids and antibiotics. Patient denies any chest pain or tightness , has daily GERD symptoms despite of PPI therapy , has symptoms of sleep disordered breathing needs outpatient evaluation . Pulmonary was consulted for evaluation of recurrent asthma exacerbation. Past Med Surg Social Fam HX - Past Medical History Medical history: asthma, kidney stones Additional medical history: RECURRENT PNEUMONIA Psychiatric history: anxiety, depression - Past Surgical History Surgical History: Additional surgical history: 2 c-sections - Social History Smoking Status: Former smoker Smokeless Tobacco Status: No Alcohol use: rarely Drug use: none - Family History Father Family Member Ethnicity: Non- Living Status: Still Living Hx Family Cardiac Disorders: No Hx Family Respiratory Disorders: No Hx Family Cancer: No Hx Family GI Disorders: No Hx Family Endocrine Disorder: No Hx Family Neuromuscular Disorders: Yes (MS) Hx Family Neurologic Disorders: No Hx Family HEENT Disorders: No Hx Family Autoimmune Disorders: No Mother Family Member Ethnicity: Non- Living Status: Still Living Hx Family Cardiac Disorders: Yes (HTN) Hx Family Respiratory Disorders: No Hx Family Cancer: No Hx Family GI Disorders: No Hx Family Endocrine Disorder: Yes (DM) Hx Family Neuromuscular Disorders: No Hx Family Neurologic Disorders: No Hx Family HEENT Disorders: No Hx Family Autoimmune Disorders: No Medications and Allergies Ipratropium/Albuterol Neb [Duoneb] 3 ml IH Q6HR PRN 02/09/17 [History] Budesonide/Formoterol 160/4.5 [Symbicort 160/4.5] 1 puff IH BIDR PRN 05/25/17 [ History] Albuterol Sulfate [Proair Hfa] 2 puff IH Q6H PRN #1 [email or web address] 05/27/17 [Rx] 3 Allergy/AdvReac Type Severity Reaction Status Date / Time Amoxicillin Allergy Severe See Verified 08/12/17 06:42 Comments Penicillins Allergy Severe See Verified 08/12/17 06:42 Comments All Systems: The remainder of the systems were reviewed and are negative Physical Examination Vital Signs: Vital Signs, Last 4 Hours Temp Pulse Resp BP Pulse Ox 08/14/17 11:46 98.1 F 104 16 132/86 94 08/14/17 11:40 98.1 F 104 16 132/86 94 08/14/17 10:18 18 91 Auscultation: bilateral: wheezes Results - Laboratory Findings CBC and BMP: 08/13/17 05:29 08/13/17 05:29 ABG ABG pH 7.49 pH Units (7.32-7.45) H 08/12/17 16:08 ABG pCO2 31 mmHg (35-45) L 08/12/17 16:08 ABG pO2 119 mmHg (85-104) H 08/12/17 16:08 ABG O2 Saturation 99 % (95-98) H 08/12/17 16:08 Abnormal lab findings: Abnormal lab results WBC 16.7 K/mcL (4.3-11.1) H D 08/13/17 05:29 RDW 15.9 % (11.5-14.5) H 08/13/17 05:29 MPV 8.4 fL (9.4-12.4) L 08/13/17 05:29 Neutrophils # 15.0 K/mcL (1.6-8.9) H 08/13/17 05:29 ABG pH 7.49 pH Units (7.32-7.45) H 08/12/17 16:08 ABG pCO2 31 mmHg (35-45) L 08/12/17 16:08 ABG pO2 119 mmHg (85-104) H 08/12/17 16:08 ABG O2 Saturation 99 % (95-98) H 08/12/17 16:08 Carbon Dioxide 22 mEq/L (23-29) L 08/13/17 05:29 Creatinine 0.48 mg/dL (0.60-1.20) L 08/13/17 05:29 Glucose 157 mg/dL (70-105) H 08/13/17 05:29 - Microbiology Findings Microbiology Findings: Microbiology, Last 48 Hours 08/12/17 11:40 Legionella Antigen - Final Urine,Clean Catch - Clinical Findings Intake & Output: Intake & Output 08/13/17 08/14/17 08/14/17 23:59 07:59 15:59 Intake Total 120 / 120 220 / 220 Output Total 800 / 800 Balance -680 / -680 220 / 220 Weight 81.3 kg Consult Discharge Plan - Plan Referrals: Rolando Varela MD [Primary Care Provider] -
[2017-08-14 13:54] LABS: Mycoplasma pneumoniae IgG 0.2 U/L (<=0.09)
[2017-08-14] MEDS: *HR* OxyCODONE/APAP 5/325 TABLET PO PRN (16:11)
[2017-08-14] MEDS: Fluticasone Propionate Nasal 50 MCG/SPRAY BOTTLE NS SCH (20:10)
[2017-08-14] MEDS: Budesonide/Formoterol 160/4.5 MDI IH SCH (22:43)
[2017-08-15] MEDS: MethylPREDNISolone 40 MG/ML VIAL IVP SCH ×4 (01:54→18:51)
[2017-08-15] MEDS: Ipratropium/Albuterol Neb 3 ML IH SCH ×4 (04:09→23:53)
[2017-08-15] MEDS: *HR* Enoxaparin 40 MG/0.4 ML SYRINGE SQ SCH (06:01)
[2017-08-15] MEDS: Ipratropium/Albuterol Neb 3 ML IH PRN ×2 (06:48→19:47)
[2017-08-15] MEDS: Levofloxacin 500 MG/100 ML 500 MG/100 ML BAG IVPB SCH (08:25)
[2017-08-15] MEDS: Fluticasone Propionate Nasal 50 MCG/SPRAY BOTTLE NS SCH (08:26)
--- NOTE | 2017-08-15 09:14 | Pulmonology Progress Note ---
Date of Encounter: 08/15/17 Time of Encounter: 08:40 Assessment and Plan (1) Acute respiratory failure Current Visit: Yes Status: Acute Patient is off BIPAP now she is on Room air. Qualifiers: Respiratory failure complication: hypoxia Qualified Code(s): J96.01 - Acute respiratory failure with hypoxia (2) Asthma with exacerbation Current Visit: Yes Status: Acute To continue with LORI nebulizer , Symbicort on discharge she will need prolonged steroid taper for 12 days . Will need Flonase on discharge. Patient has strong eosinophilic component will need outpatient anti -IL5 Qualifiers: Asthma severity: moderate Asthma persistence: persistent Qualified Code(s ): J45.41 - Moderate persistent asthma with (acute) exacerbation (3) Chronic allergic rhinitis Current Visit: Yes Status: Acute To continue Flonase as outpatient (4) GERD (gastroesophageal reflux disease) Current Visit: Yes Status: Acute To continue PPI inspite of using PPI she is having daily symptoms will need outpatient GI evaluation. Qualifiers: Esophagitis presence: esophagitis presence not specified Qualified Code(s) : K21.9 - Gastro-esophageal reflux disease without esophagitis (5) Sleep-disordered breathing Current Visit: Yes Status: Acute Will need outpatient evaluation of sleep disordered breathing Subjective Principal diagnosis: Asthma Exacerbation Interval history: Patient had shower today after that she had a wheezing attack still she is not at baseline . Objective PUL Vital signs: Last Vital Signs Temp 98.0 F 08/15/17 08:13 Pulse 85 08/15/17 08:13 Resp 18 08/15/17 08:13 BP 149/100 08/15/17 08:13 Pulse Ox 96 08/15/17 08:13 Auscultation: bilateral: wheezes Results - Laboratory Findings CBC and BMP: 08/15/17 09:15 08/15/17 09:15 ABG ABG pH 7.49 pH Units (7.32-7.45) H 08/12/17 16:08 ABG pCO2 31 mmHg (35-45) L 08/12/17 16:08 ABG pO2 119 mmHg (85-104) H 08/12/17 16:08 ABG O2 Saturation 99 % (95-98) H 08/12/17 16:08 Abnormal lab findings: Abnormal lab results WBC 16.7 K/mcL (4.3-11.1) H D 08/13/17 05:29 RDW 15.9 % (11.5-14.5) H 08/13/17 05:29 MPV 8.4 fL (9.4-12.4) L 08/13/17 05:29 Neutrophils # 15.0 K/mcL (1.6-8.9) H 08/13/17 05:29 ABG pH 7.49 pH Units (7.32-7.45) H 08/12/17 16:08 ABG pCO2 31 mmHg (35-45) L 08/12/17 16:08 ABG pO2 119 mmHg (85-104) H 08/12/17 16:08 ABG O2 Saturation 99 % (95-98) H 08/12/17 16:08 Carbon Dioxide 22 mEq/L (23-29) L 08/13/17 05:29 Creatinine 0.48 mg/dL (0.60-1.20) L 08/13/17 05:29 Glucose 157 mg/dL (70-105) H 08/13/17 05:29 Mycoplasma pneumon IgG 0.20 U/L (<=0.09) H 08/12/17 03:21 - Clinical Findings Intake & Output: Intake & Output 08/14/17 08/15/17 08/15/17 23:59 07:59 15:59 Intake Total 200 / 200 Output Total 0 / 0 Balance 200 / 200 Weight 80.7 kg Consult Discharge Plan - Plan Referrals: Rolando Varela MD [Primary Care Provider] -
[2017-08-15 09:54] LABS: Basophils % 0.1 %; Hematocrit 37.6 % (35.3-44.9); Hemoglobin 12.5 g/dL (11.5-15.4); Immature Granulocytes % 0.6 % (0-4); Lymphocytes % 9.1 %; Mean Corpuscular HGB Conc 33.2 g/dL (31.6-35.5); Mean Corpuscular Hemoglobin 29.3 pg (28.0-33.3); Mean Corpuscular Volume 88.1 fL (83.0-100.0); Mean Platelet Volume 8.4 fL (9.4-12.4); Monocytes # 0.2 K/mcL (0.0-1.3); Monocytes % 1.6 %; Neutrophils # 9.8 K/mcL (1.6-8.9); Platelet Count 369 K/mcL (140-400); Red Blood Count 4.27 M/mcL (3.82-4.97); Red Cell Distribution Width 15.9 % (11.5-14.5); Segmented Neutrophils % 88.6 %
[2017-08-15 10:18] LABS: BUN/Creatinine Ratio 30 (6-26); Blood Urea Nitrogen 17 mg/dL (6-20); Calcium 9.5 mg/dL (8.6-10.3); Carbon Dioxide 22 mEq/L (23-29); Chloride 103 mEq/L (98-107); Glucose 141 mg/dL (70-105); Osmolality,Calculated 286 (280-300); Potassium 3.9 mEq/L (3.5-5.1); Sodium 136 mEq/L (136-145); eGFR For African Americans > 60 (> 60); eGFR For Non-African Americans > 60 (> 60)
[2017-08-15] MEDS: Budesonide/Formoterol 160/4.5 MDI IH SCH ×2 (11:11→19:47)
--- NOTE | 2017-08-15 13:38 | Internal Med Progress Note ---
Date of Encounter: 08/15/17 Time of Encounter: 13:36 - Assessment and plan (1) Asthma with exacerbation Current Visit: Yes Status: Acute Assessment and plan: Acute respiratory failure secondary to exacerbation of asthma Patient reporting that since April 2017 she has been using her rescue inhaler 5-7 times daily Has had over 10 ER hospital visits for asthma exacerbation in the past year Required BIpap early in admission now on room air and tolerating without respiratory distress Wheezing noted as improving today in comparison yesterday, no accessory muscle usage, no overt distress patient needs f/u w/ allergy/immunology evaluation Continue current respiratory regimen of DuoNeb's, Symbicort twice a day, IV steroids; taper steroids as appropriate. Patient not ready for change to oral steroids today Continue aBX coverage with [facility] Pulmonology seeing the patient in consultation Qualifiers: Asthma severity: moderate Asthma persistence: persistent Qualified Code(s ): J45.41 - Moderate persistent asthma with (acute) exacerbation (2) Acute respiratory failure Current Visit: Yes Status: Acute Assessment and plan: See above Qualifiers: Respiratory failure complication: hypoxia Qualified Code(s): J96.01 - Acute respiratory failure with hypoxia (3) Sleep-disordered breathing Current Visit: Yes Status: Acute Assessment and plan: Concern for sleep-disordered breathing. Patient will need outpatient PSG Pulmonology discussed with patient regarding treatment of GRETCHEN and prevention of future risk of [place] heart failure and stroke To follow up outpatient with pulmonology to set up sleep study - Time Spent With Patient Total time spent is greater than 50% in coordination of care (as documented) at patient's floor/unit and/or counseling patient: 25 - 35 minutes - Subjective Interval history: Admitted with acute respiratory failure secondary to asthma exacerbation. No acute changes overnight, seen and examined at bedside today. Reporting that cough and wheezing is improving. Remains slightly short of breath but reports that it is also improving. - Constitutional Vitals: Temp Pulse Resp BP Pulse Ox 98.3 F 98 16 140/101 96 08/15/17 12:50 08/15/17 12:50 08/15/17 12:50 08/15/17 12:50 08/15/17 12:50 General appearance: Present: A&O X 3 - Head Head exam: Present: atraumatic, normocephalic - Eye Eye exam: Present: PERRL, conjuntiva pink, sclera anicteric Pupils: Present: PERRL - Neck Neck exam general surgery: Present: supple, trachea midline. Absent: lymphadenopathy - Respiratory Respiratory exam: Present: CTAB, wheezes (I&E wheezing; but improving ). Absent : accessory muscle use, decreased breath sounds, prolonged expiratory phase, rales, rhonchi, tachypnea - Cardiovascular Cardiovascular exam: Present: RRR, +S1, +S2. Absent: diastolic murmur, gallop, rubs, systolic murmur - GI/Abdominal GI/Abdominal exam: Present: normal bowel sounds, soft, no peritoneal signs. Absent: distended, tenderness - Extremities Exam Extremities exam: Present: warm, radial pulses palpable and symmetrical. Absent : calf tenderness, cyanotic, pedal edema - Neurological Exam Neurological exam: Present: CN II-XII intact, oriented X3, no focal deficits. Absent: pronater drift, facial droop, speech deficit - Skin Skin exam: Present: dry, intact Internal Medicine: Result - Labs CBC & Chem 7: 08/15/17 09:15 08/15/17 09:15 Labs: Short CBC 08/15/17 Range/Units 09:15 WBC 11.0 (4.3-11.1) K/mcL Hgb 12.5 (11.5-15.4) g/dL Hct 37.6 (35.3-44.9) % Plt Count 369 (140-400) K/mcL Neutrophils # 9.8 H (1.6-8.9) K/mcL BMP 08/15/17 09:15 Sodium 136 Potassium 3.9 Chloride 103 Carbon Dioxide 22 L BUN 17 Creatinine 0.57 L Glucose 141 H Calcium 9.5 - ABG Interpretation ABG results: ABG ABG pH 7.49 pH Units (7.32-7.45) H 08/12/17 16:08 ABG pCO2 31 mmHg (35-45) L 08/12/17 16:08 ABG pO2 119 mmHg (85-104) H 08/12/17 16:08 ABG O2 Saturation 99 % (95-98) H 08/12/17 16:08 Consult Discharge Plan - Plan Referrals: Rolando Varela MD [Primary Care Provider] -
[2017-08-16] MEDS: MethylPREDNISolone 40 MG/ML VIAL IVP SCH ×5 (00:03→23:32)
[2017-08-16] MEDS: Ipratropium/Albuterol Neb 3 ML IH SCH ×4 (05:09→23:08)
[2017-08-16] MEDS: *HR* Enoxaparin 40 MG/0.4 ML SYRINGE SQ SCH (05:57)
--- NOTE | 2017-08-16 08:12 | Internal Med Progress Note ---
Date of Encounter: 08/16/17 Time of Encounter: 08:08 - Assessment and plan (1) Asthma with exacerbation Current Visit: Yes Status: Acute Assessment and plan: Acute respiratory failure secondary to exacerbation of asthma Multiple hospital admissions for acute respiratory failure due to/to exacerbation of asthma Required BIpap early in admission now on room air, and tolerating without respiratory distress Lungs: Clear/diminished, no wheezes noted, no accessory muscle usage patient needs f/u w/ allergy/immunology evaluation; schedule follow-up with allergy/immunology upon discharge -Continue to DuoNeb's -Symbicort twice a day -IV steroids; taper steroids as appropriate -Continue ABX coverage with [facility] -Pulmonology seeing the patient in consultation Qualifiers: Asthma severity: moderate Asthma persistence: persistent Qualified Code(s ): J45.41 - Moderate persistent asthma with (acute) exacerbation (2) Acute respiratory failure Current Visit: Yes Status: Acute Assessment and plan: See above Qualifiers: Respiratory failure complication: hypoxia Qualified Code(s): J96.01 - Acute respiratory failure with hypoxia (3) Sleep-disordered breathing Current Visit: Yes Status: Acute Assessment and plan: Concern for sleep-disordered breathing. Patient will need outpatient PSG Pulmonology discussed with patient regarding treatment of GRETCHEN and prevention of future risk of [place] heart failure and stroke To follow up outpatient with pulmonology to set up sleep study - Time Spent With Patient Total time spent is greater than 50% in coordination of care (as documented) at patient's floor/unit and/or counseling patient: 25 - 35 minutes - Subjective Interval history: Admitted with acute respiratory failure secondary to asthma exacerbation. No acute changes overnight, seen and examined at bedside today. Reporting that cough has markedly improved, no wheezing this morning. Shortness of breath also improving - Constitutional Vitals: Temp Pulse Resp BP Pulse Ox 97.8 F 87 18 148/96 96 08/16/17 07:44 08/16/17 07:44 08/16/17 07:44 08/16/17 07:44 08/16/17 07:44 General appearance: Present: A&O X 3 - Head Head exam: Present: atraumatic, normocephalic - Eye Eye exam: Present: PERRL, conjuntiva pink, sclera anicteric Pupils: Present: PERRL - Neck Neck exam general surgery: Present: supple, trachea midline. Absent: lymphadenopathy - Respiratory Respiratory exam: Present: decreased breath sounds, CTAB. Absent: accessory muscle use, rales, rhonchi, wheezes - Cardiovascular Cardiovascular exam: Present: RRR, +S1, +S2. Absent: diastolic murmur, gallop, rubs, systolic murmur - GI/Abdominal GI/Abdominal exam: Present: normal bowel sounds, soft, no peritoneal signs. Absent: distended, tenderness - Extremities Exam Extremities exam: Present: warm, radial pulses palpable and symmetrical. Absent : calf tenderness, cyanotic, pedal edema - Neurological Exam Neurological exam: Present: CN II-XII intact, oriented X3, no focal deficits. Absent: pronater drift, facial droop, speech deficit - Skin Skin exam: Present: dry, intact Internal Medicine: Result - Labs CBC & Chem 7: 08/15/17 09:15 08/15/17 09:15 Labs: Short CBC 08/15/17 Range/Units 09:15 WBC 11.0 (4.3-11.1) K/mcL Hgb 12.5 (11.5-15.4) g/dL Hct 37.6 (35.3-44.9) % Plt Count 369 (140-400) K/mcL Neutrophils # 9.8 H (1.6-8.9) K/mcL BMP 08/15/17 09:15 Sodium 136 Potassium 3.9 Chloride 103 Carbon Dioxide 22 L BUN 17 Creatinine 0.57 L Glucose 141 H Calcium 9.5 - ABG Interpretation ABG results: ABG ABG pH 7.49 pH Units (7.32-7.45) H 08/12/17 16:08 ABG pCO2 31 mmHg (35-45) L 08/12/17 16:08 ABG pO2 119 mmHg (85-104) H 08/12/17 16:08 ABG O2 Saturation 99 % (95-98) H 08/12/17 16:08 Consult Discharge Plan - Plan Referrals: Rolando Varela MD [Primary Care Provider] -
--- NOTE | 2017-08-16 09:40 | Pulmonology Progress Note ---
Date of Encounter: 08/16/17 Time of Encounter: 08:45 Assessment and Plan (1) Acute respiratory failure Current Visit: Yes Status: Acute Patient is off BIPAP now she is on Room air. Doing well no V/Q mismatch before discharge will need to do exercise oximetry. Qualifiers: Respiratory failure complication: hypoxia Qualified Code(s): J96.01 - Acute respiratory failure with hypoxia (2) Asthma with exacerbation Current Visit: Yes Status: Acute To continue with LORI nebulizer , Symbicort on discharge she will need prolonged steroid taper for 12 days . Will need Flonase on discharge. Patient has strong eosinophilic component will need outpatient anti -IL5 . Will sign off call with questions . Patient can be discharged if she do well on exercise oximetry Qualifiers: Asthma severity: moderate Asthma persistence: persistent Qualified Code(s ): J45.41 - Moderate persistent asthma with (acute) exacerbation (3) Chronic allergic rhinitis Current Visit: Yes Status: Acute To continue Flonase as outpatient (4) GERD (gastroesophageal reflux disease) Current Visit: Yes Status: Acute To continue PPI inspite of using PPI she is having daily symptoms will need outpatient GI evaluation. Qualifiers: Esophagitis presence: esophagitis presence not specified Qualified Code(s) : K21.9 - Gastro-esophageal reflux disease without esophagitis (5) Sleep-disordered breathing Current Visit: Yes Status: Acute Will need outpatient evaluation of sleep disordered breathing Subjective Principal diagnosis: Asthma Exacerbation Interval history: Patient sleeping today had a good night no acute events overnight no active wheezing today Objective PUL Vital signs: Last Vital Signs Temp 97.8 F 08/16/17 07:44 Pulse 87 08/16/17 07:44 Resp 18 08/16/17 07:44 BP 148/96 08/16/17 07:44 Pulse Ox 96 08/16/17 07:44 Auscultation: bilateral: clear Results - Laboratory Findings CBC and BMP: 08/15/17 09:15 08/15/17 09:15 ABG ABG pH 7.49 pH Units (7.32-7.45) H 08/12/17 16:08 ABG pCO2 31 mmHg (35-45) L 08/12/17 16:08 ABG pO2 119 mmHg (85-104) H 08/12/17 16:08 ABG O2 Saturation 99 % (95-98) H 08/12/17 16:08 Abnormal lab findings: Abnormal lab results RDW 15.9 % (11.5-14.5) H 08/15/17 09:15 MPV 8.4 fL (9.4-12.4) L 08/15/17 09:15 Neutrophils # 9.8 K/mcL (1.6-8.9) H 08/15/17 09:15 ABG pH 7.49 pH Units (7.32-7.45) H 08/12/17 16:08 ABG pCO2 31 mmHg (35-45) L 08/12/17 16:08 ABG pO2 119 mmHg (85-104) H 08/12/17 16:08 ABG O2 Saturation 99 % (95-98) H 08/12/17 16:08 Carbon Dioxide 22 mEq/L (23-29) L 08/15/17 09:15 Creatinine 0.57 mg/dL (0.60-1.20) L 08/15/17 09:15 BUN/Creatinine Ratio 30 (6-26) H 08/15/17 09:15 Glucose 141 mg/dL (70-105) H 08/15/17 09:15 Mycoplasma pneumon IgG 0.20 U/L (<=0.09) H 08/12/17 03:21 - Clinical Findings Intake & Output: Intake & Output 08/15/17 08/16/17 08/16/17 23:59 07:59 15:59 Weight 79.9 kg Consult Discharge Plan - Plan Referrals: Rolando Varela MD [Primary Care Provider] -
[2017-08-16] MEDS: Levofloxacin 500 MG/100 ML 500 MG/100 ML BAG IVPB SCH (10:02)
[2017-08-16] MEDS: Fluticasone Propionate Nasal 50 MCG/SPRAY BOTTLE NS SCH (10:03)
[2017-08-16] MEDS: Budesonide/Formoterol 160/4.5 MDI IH SCH ×2 (10:25→23:08)
[2017-08-16] MEDS: *HR* OxyCODONE/APAP 5/325 TABLET PO PRN (23:31)
[2017-08-17] MEDS: Ipratropium/Albuterol Neb 3 ML IH SCH ×2 (04:34→10:15)
[2017-08-17] MEDS: *HR* Enoxaparin 40 MG/0.4 ML SYRINGE SQ SCH (05:46)
[2017-08-17] MEDS: MethylPREDNISolone 40 MG/ML VIAL IVP SCH ×2 (05:46→12:00)
[2017-08-17] MEDS: Levofloxacin 500 MG/100 ML 500 MG/100 ML BAG IVPB SCH (09:09)
[2017-08-17] MEDS: Fluticasone Propionate Nasal 50 MCG/SPRAY BOTTLE NS SCH (09:09)
--- NOTE | 2017-08-17 09:51 | Discharge Summary ---
- NOTES TO OUTPATIENT PROVIDER Notes to Outpatient Provider: Presented with acute exacerbation of pneumonia. Treated with IV steroids and ABX. Added Symbicort medication list as well as Flonase. Patient given 4 month supply of Symbicort at discharge. Sent home with rx for 12 days of oral steroids. Instructed to f/u in resident clinic in 1 -week of D/C Date of Encounter: 08/17/17 Time of Encounter: 09:46 - Discharge Diagnosis (1) Asthma with exacerbation Priority: Primary Status: Acute Assessment and Plan: Acute respiratory failure secondary to exacerbation of asthma Multiple hospital admissions for acute respiratory failure due to/to exacerbation of asthma Required BIpap early in admission now on room air, and tolerating without respiratory distress Lungs: Clear/diminished, no wheezes noted, no accessory muscle usage patient needs f/u w/ allergy/immunology evaluation; schedule follow-up with allergy/immunology upon discharge -Continue to DuoNeb's -Symbicort twice a day -IV steroids; taper steroids as appropriate -Continue ABX coverage with [facility] -Pulmonology seeing the patient in consultation Qualifiers: Asthma severity: moderate Asthma persistence: persistent Qualified Code(s ): J45.41 - Moderate persistent asthma with (acute) exacerbation (2) Acute respiratory failure Priority: Secondary Status: Acute Assessment and Plan: See above Qualifiers: Respiratory failure complication: hypoxia Qualified Code(s): J96.01 - Acute respiratory failure with hypoxia (3) Sleep-disordered breathing Priority: Secondary Status: Acute Assessment and Plan: Concern for sleep-disordered breathing. Patient will need outpatient PSG Pulmonology discussed with patient regarding treatment of GRETCHEN and prevention of future risk of MD heart failure and stroke To follow up outpatient with pulmonology to set up sleep study Hospital course: Ms. Parra is a 42 year old female Please see assessment and plan for hospital course Discharge discussed with: patient, nurse, case management - Time Spent with Patient Total time spent providing and/or coordinating discharge services: Less than 30 minutes - Discharge Medications Prescriptions: Ipratropium/Albuterol Neb [Duoneb] 3 ml IH Q6HR PRN 30 Days #1 inhsol PRN Reason: Dyspnea Albuterol Sulfate [Proair Hfa] 2 puff IH Q6H PRN #1 hfa.aer.ad PRN Reason: Dyspnea Budesonide/Formoterol 160/4.5 [Symbicort 160/4.5] 1 puff IH BIDR PRN 30 Days #1 inhaler PRN Reason: Shortness Of Breath Fluticasone Propionate Nasal [Flonase] 100 mcg NS DAILY 30 Days #1 bottle PredniSONE [Deltasone] 40 mg PO DAILY 12 Days #12 tablet Home Medications: Albuterol Sulfate [Proair Hfa] 2 puff IH Q6H PRN #1 hfa.aer.ad 08/17/17 [Rx] Budesonide/Formoterol 160/4.5 [Symbicort 160/4.5] 1 puff IH BIDR PRN 30 Days #1 inhaler 08/17/17 [Rx] Fluticasone Propionate Nasal [Flonase] 100 mcg NS DAILY 30 Days #1 bottle [Rx] Ipratropium/Albuterol Neb [Duoneb] 3 ml IH Q6HR PRN 30 Days #1 inhsol 08/17/17 [ Rx] PredniSONE [Deltasone] 40 mg PO DAILY 12 Days #12 tablet 08/17/17 [Rx] Allergies/Adverse Reactions: 3 Allergy/AdvReac Type Severity Reaction Status Date / Time Amoxicillin Allergy Severe See Verified 08/12/17 06:42 Comments Penicillins Allergy Severe See Verified 08/12/17 06:42 Comments Date of admission: 08/12/17 09:56 Primary care physician: Rolando Varela Consults: 08/12/17 16:03 Consult to Nurse Navigator [CONS] Routine Comment: 08/13/17 15:33 Consult to Pulmonology [CONS] Routine Consulting Provider: [facility] [place] Reason for Consult: acute asthma exacerbation Call Completed: No Discharging clinician: Gavin Carty Anticipated date of discharge: 08/17/17 - Constitutional Vitals: Temp Pulse Resp BP Pulse Ox 98.3 F 77 14 134/90 98 08/17/17 07:24 08/17/17 07:24 08/17/17 07:24 08/17/17 07:24 08/17/17 07:24 General appearance: Present: A&O X 3 - Head Head exam: Present: atraumatic, normocephalic - Eye Eye exam: Present: PERRL, conjuntiva pink, sclera anicteric Pupils: Present: PERRL - Neck Neck exam general surgery: Present: supple, trachea midline. Absent: lymphadenopathy - Respiratory Respiratory exam: Present: CTAB, wheezes (fine I&E wheezes). Absent: accessory muscle use, rales, rhonchi - Cardiovascular Cardiovascular exam: Present: RRR, +S1, +S2. Absent: diastolic murmur, gallop, rubs, systolic murmur - GI/Abdominal GI/Abdominal exam: Present: normal bowel sounds, soft, no peritoneal signs. Absent: distended, tenderness - Extremities Exam Extremities exam: Present: warm, radial pulses palpable and symmetrical. Absent : calf tenderness, cyanotic, pedal edema - Neurological Exam Neurological exam: Present: CN II-XII intact, oriented X3, no focal deficits. Absent: pronater drift, facial droop, speech deficit - Skin Skin exam: Present: dry, intact - Patient Status Disposition: Home, Self-Care Condition: Fair Overall status at discharge: patient is back to baseline - Discharge Instructions Follow Up With: Shar Currie DO [Resident] - 08/25/17 10:20 am (Please bring your HCAP paperwork to the appointment. ) - Diet and Activity Activity: increase activity as tolerated Diet: advance to your usual diet
[2017-08-17] MEDS: Budesonide/Formoterol 160/4.5 MDI IH SCH (10:15)
[2017-08-17 14:33] VITALS: BP 140/94
[2017-08-18] MEDS ORDERED: levoFLOXacin 500 MG TABLET PO SCH (09:00)
== END 2017-08-17 15:35 | disposition home or self-care (01) | DRG 202 ==
LOC: EMEROO 03:03 → 3BNU 09:56
PROVIDERS: ADMIT Internal Medicine Hematology & Oncology; ATTEND Internal Medicine Hematology & Oncology

== ENCOUNTER 2018-04-20 08:44 | Observation (INO) ==
[2018-04-20] MEDS ORDERED: methylPREDNISolone 125 MG/2 ML VIAL IVP ONE (08:56)
[2018-04-20] MEDS ORDERED: Albuterol 2.5 MG/3 ML NEBULIZER ONE (08:57)
[2018-04-20] MEDS ORDERED: Ipratropium/Albuterol Neb 3 ML IH ONE ×3 (08:57→12:10)
--- NOTE | 2018-04-20 09:01 | Emergency Department Note ---
Disposition Clinical Impression: History of asthma, Wheezing, Dyspnea, Asthma with exacerbation Disposition: Admitted As Inpatient Referrals: Anila Pineda DO [Primary Care Provider] - Forms: ED Satisfaction Letter General Adult HPI - General Chief complaint: ED Shortness of Breath/Dyspnea Stated complaint: ROSY,Asthma Time Seen by Provider: 04/20/18 08:56 Source: patient Limitations: no limitations - History of Present Illness HPI Narrative: 42-year-old female with a history of asthma since age 13 reports to the emergency department complaining of coughing and shortness of breath. She has been using nebulizer medication every 2 hours. There is no history of fever. No coughing of blood. No chest pain. No history of CAD DVT PE or cancer no leg swelling or pain no syncope. The patient has no history of heart failure. The patient has had no abdominal pain vomiting or diarrhea. She denies at this time. The patient reports progressive dyspnea and gives a history that she had pneumonia about a month ago, she has also had the flu. She states she recently had to stay in the hospital for 5 days secondary to lung problems. Pain Scale: 0 - Related Data Home Medications Medication Instructions Recorded Confirmed Biotin 10 mg PO DAILY 10/30/17 03/07/18 Budesonide/Formoterol 160/4.5 1 puff IH BIDR 10/30/17 03/07/18 [Symbicort 160/4.5] Citalopram Hydrobromide 40 mg PO DAILY 10/30/17 03/07/18 [Citalopram HBr] Lisinopril 2.5 mg PO DAILY 10/30/17 03/07/18 Loratadine [Claritin] 10 mg PO DAILY 10/30/17 03/07/18 Multivit-Min/Iron Fum/Folic AC 1 tab PO DAILY 10/30/17 03/07/18 [Xqzkl-Dcujjyk-Crbbkcwc Tablet] raNITIdine HCl [Zantac] 150 mg PO BID 10/30/17 03/07/18 Montelukast [Singulair] 10 mg PO DAILY 03/07/18 03/07/18 predniSONE [PredniSONE] 10 mg PO DAILY 03/07/18 03/07/18 Previous Rx's Medication Instructions Recorded Albuterol Sulfate [Proair Hfa] 2 puff IH Q6H PRN #1 hfa.aer.ad 08/17/17 PredniSONE [Deltasone] 40 mg PO BID #18 tablet 03/10/18 Allergies Allergy/AdvReac Type Severity Reaction Status Date / Time Amoxicillin Allergy Severe See Verified 03/07/18 14:32 Comments Penicillins Allergy Severe See Verified 03/07/18 14:32 Comments All systems ED: reviewed and negative except as stated. Past Medical History - Past Medical History Medical history: Reports: asthma, hypertension, kidney stones Surgical history: Reports: Psychiatric history: Reports: anxiety, depression P[employer] TRIMMER history: Reports: non-contributory - Social History Smoking Status: Former smoker Smokeless Tobacco Status: No Alcohol use: Reports: rarely Drug use: Reports: none Physical Exam - General Limitations: no limitations General appearance: alert, in no apparent distress - Head Head exam: atraumatic, normocephalic, normal inspection - Eye Eye exam: Present: normal appearance, PERRL, EOMI - ENT ENT exam: normal exam, normal oropharynx, mucous membranes moist, TM's normal bilaterally - Neck Neck exam: Present: normal inspection, full ROM, trachea midline - Chest Chest inspection: Present: symmetric chest wall rise. Absent: tenderness - Respiratory Respiratory exam: Present: wheezes, prolonged expiratory phase. Absent: normal lung sounds bilaterally, respiratory distress, stridor - Cardiovascular Cardiovascular exam: Present: regular rate, normal rhythm, normal heart sounds - Abdominal Exam Abdominal exam: Present: soft, Non-Tender, normal bowel sounds. Absent: tenderness, distention, guarding, rebound, rigidity - Extremities Exam Extremities exam: Present: normal inspection, full ROM, normal capillary refill. Absent: tenderness, pedal edema, joint swelling, calf tenderness - Expanded Lower Extremity Exam Neurovascular/Tendon exam: Present: normal capillary refill. Absent: motor deficit, sensory deficit, tendon deficit, extremity cold to touch, pallor - Back Exam Back exam: Present: full ROM. Absent: tenderness, CVA tenderness (R), CVA tenderness (L), vertebral tenderness - Neurological Exam Neurological exam: Present: alert, oriented X3, CN II-XII intact. Absent: motor sensory deficit - Psychiatric Psychiatric exam: Present: normal affect, normal mood - Skin Skin exam: Present: warm, dry, intact, normal color Course Vital Signs Temperature 98.2 F 04/20/18 08:51 Pulse Rate 115 04/20/18 08:51 Respiratory Rate 26 04/20/18 08:51 Blood Pressure 133/84 04/20/18 08:51 O2 Sat by Pulse Oximetry 94 04/20/18 08:51 Temperature 98.2 F 04/20/18 08:51 Pulse Rate 94 04/20/18 11:34 Respiratory Rate 22 04/20/18 11:34 Blood Pressure 137/83 04/20/18 11:34 O2 Sat by Pulse Oximetry 97 04/20/18 11:34 Oxygen Delivery Oxygen Delivery Room Air Medical Decision Making - [facility] Narrative Medical decision making narrative: The patient has been taking breathing treatments every 2 hours, she came to the emergency department at persistent wheezing. The patient has a long history of asthma but denies a history of cardiac disease. The patient was given 3 nebs in the ED and still had a peak flow to 35 and felt short of breath. The fourth nebulizer was ordered. The patient does not feel comfortable going home and feels that she may just turn) come back to the emergency department if discharged. She had recent pneumonia and the flu. She was given Solu-Medrol in the emergency department. Cardiac testing d-dimer and BNP negative. Other laboratory studies unrevealing. Based on the patient's no history of asthma, recent pneumonia, apparent failure of outpatient therapy with persistent and significant peak flow abnormalities, I thought it would be appropriate to admit the patient to the hospital. I discussed the case with the hospitalist on-call who has accepted the patient to their care. - Lab Data Lab results reviewed: Yes I reviewed the patient's lab results. Result diagrams: 04/20/18 09:21 04/20/18 09:21 Lab Results 04/20/18 04/20/18 04/20/18 Range/Units 09:21 09:21 09:21 WBC 10.1 (4.3-11.1) K/mcL RBC 4.55 (3.82-4.97) M/mcL Hgb 13.3 (11.5-15.4) g/dL Hct 40.8 (35.3-44.9) % MCV 89.7 (83.0-100.0) fL MCH 29.2 (28.0-33.3) pg MCHC 32.6 (31.6-35.5) g/dL RDW 13.6 (11.5-14.5) % Plt Count 331 (140-400) K/mcL MPV 8.3 L (9.4-12.4) fL Immature Gran % 0.2 (0-4) % Seg Neutrophils % 63.1 % Lymphocytes % 20.5 % Monocytes % 9.5 % Eosinophils % 5.9 % Basophils % 0.8 % Neutrophils # 6.4 (1.6-8.9) K/mcL Lymphocytes # 2.1 (0.6-4.6) K/mcL Monocytes # 1.0 (0.0-1.3) K/mcL Eosinophils # 0.6 (0.0-0.6) K/mcL Basophils # 0.1 (0.0-0.2) K/mcL PT 11.6 (9.4-12.1) Seconds INR 1.0 APTT 32.5 (26.0-36.0) Seconds D-Dimer 450 (0-500) ng/mLFEU Sodium 135 L (136-145) mEq/L Potassium 3.9 (3.5-5.1) mEq/L Chloride 103 (98-107) mEq/L Carbon Dioxide 22 L (23-29) mEq/L BUN 10 (6-20) mg/dL Creatinine 0.59 L (0.60-1.20) mg/dL Est GFR ( Amer) > 60 (> 60) Est GFR (Non-Af Amer) > 60 (> 60) BUN/Creatinine Ratio 17 (6-26) Glucose 108 H (70-105) mg/dL Calculated Osmolality 280 (280-300) Lactic Acid (0.5-2.2) mmol/L Calcium 9.6 (8.6-10.3) mg/dL Total Bilirubin 0.8 (0.3-1.0) mg/dL Direct Bilirubin 0.2 (0.0-0.2) mg/dL Indirect Bilirubin 0.6 (0.0-1.2) mg/dL AST 14 (13-39) Units/L ALT 13 (7-52) Units/L Alkaline Phosphatase 101 (34-104) Units/L Troponin I < 0.03 (< 0.04) ng/mL B-Natriuretic Peptide (Less than 100) pg/mL Serum Total Protein 7.1 (6.4-8.9) g/dL Albumin 4.4 (3.5-5.7) g/dL Globulin 2.7 (2.4-3.5) g/dL Albumin/Globulin Ratio 1.6 (1.1-2.2) 04/20/18 04/20/18 Range/Units 09:21 09:21 WBC (4.3-11.1) K/mcL RBC (3.82-4.97) M/mcL Hgb (11.5-15.4) g/dL Hct (35.3-44.9) % MCV (83.0-100.0) fL MCH (28.0-33.3) pg MCHC (31.6-35.5) g/dL RDW (11.5-14.5) % Plt Count (140-400) K/mcL MPV (9.4-12.4) fL Immature Gran % (0-4) % Seg Neutrophils % % Lymphocytes % % Monocytes % % Eosinophils % % Basophils % % Neutrophils # (1.6-8.9) K/mcL Lymphocytes # (0.6-4.6) K/mcL Monocytes # (0.0-1.3) K/mcL Eosinophils # (0.0-0.6) K/mcL Basophils # (0.0-0.2) K/mcL PT (9.4-12.1) Seconds INR APTT (26.0-36.0) Seconds D-Dimer (0-500) ng/mLFEU Sodium (136-145) mEq/L Potassium (3.5-5.1) mEq/L Chloride (98-107) mEq/L Carbon Dioxide (23-29) mEq/L BUN (6-20) mg/dL Creatinine (0.60-1.20) mg/dL Est GFR ( Amer) (> 60) Est GFR (Non-Af Amer) (> 60) BUN/Creatinine Ratio (6-26) Glucose (70-105) mg/dL Calculated Osmolality (280-300) Lactic Acid 0.7 (0.5-2.2) mmol/L Calcium (8.6-10.3) mg/dL Total Bilirubin (0.3-1.0) mg/dL Direct Bilirubin (0.0-0.2) mg/dL Indirect Bilirubin (0.0-1.2) mg/dL AST (13-39) Units/L ALT (7-52) Units/L Alkaline Phosphatase (34-104) Units/L Troponin I (< 0.04) ng/mL B-Natriuretic Peptide 17 (Less than 100) pg/mL Serum Total Protein (6.4-8.9) g/dL Albumin (3.5-5.7) g/dL Globulin (2.4-3.5) g/dL Albumin/Globulin Ratio (1.1-2.2) - Radiology Data Radiology results reviewed: Yes I reviewed the patient's radiology results.
[2018-04-20 09:50] LABS: Basophils # 0.1 K/mcL (0.0-0.2); Basophils % 0.8 %; Eosinophils # 0.6 K/mcL (0.0-0.6); Eosinophils % 5.9 %; Hematocrit 40.8 % (35.3-44.9); Hemoglobin 13.3 g/dL (11.5-15.4); Immature Granulocytes % 0.2 % (0-4); Lymphocytes # 2.1 K/mcL (0.6-4.6); Lymphocytes % 20.5 %; Mean Corpuscular HGB Conc 32.6 g/dL (31.6-35.5); Mean Corpuscular Hemoglobin 29.2 pg (28.0-33.3); Mean Corpuscular Volume 89.7 fL (83.0-100.0); Mean Platelet Volume 8.3 fL (9.4-12.4); Monocytes % 9.5 %; Neutrophils # 6.4 K/mcL (1.6-8.9); Platelet Count 331 K/mcL (140-400); Red Blood Count 4.55 M/mcL (3.82-4.97); Red Cell Distribution Width 13.6 % (11.5-14.5); Segmented Neutrophils % 63.1 %
[2018-04-20 09:58] LABS: Prothrombin Time 11.6 Seconds (9.4-12.1)
[2018-04-20 09:59] LABS: Alanine Aminotransferase 13 Units/L (7-52); Albumin 4.4 g/dL (3.5-5.7); Albumin/Globulin Ratio 1.6 (1.1-2.2); Alkaline Phosphatase 101 Units/L (34-104); Aspartate Amino Transferase 14 Units/L (13-39); BUN/Creatinine Ratio 17 (6-26); Bilirubin,Direct 0.2 mg/dL (0.0-0.2); Bilirubin,Indirect 0.6 mg/dL (0.0-1.2); Bilirubin,Total 0.8 mg/dL (0.3-1.0); Blood Urea Nitrogen 10 mg/dL (6-20); Calcium 9.6 mg/dL (8.6-10.3); Carbon Dioxide 22 mEq/L (23-29); Chloride 103 mEq/L (98-107); Globulin 2.7 g/dL (2.4-3.5); Glucose 108 mg/dL (70-105); Osmolality,Calculated 280 (280-300); Potassium 3.9 mEq/L (3.5-5.1); Sodium 135 mEq/L (136-145); Total Protein 7.1 g/dL (6.4-8.9); Troponin I < 0.03 ng/mL (< 0.04); eGFR For Non-African Americans > 60 (> 60)
[2018-04-20 10:00] LABS: Activated Partial Thrombo Time 32.5 Seconds (26.0-36.0)
[2018-04-20] MEDS ORDERED: Naloxone 0.4 MG/ML INJ IVP PRN (12:42)
--- NOTE | 2018-04-20 16:14 | Internal Med History&Physical ---
Date of Encounter: 04/20/18 Time of Encounter: 15:00 Internal Medicine - H&P: HPI Chief complaint: Shortness of breath, coughing and wheezing of 2 days duration History of present illness: Ms. Parra is a 42 year old female with pmh of asthma since age 13 presenting with complaints of shortness of breath, productive cough with wheezing, and feeling unwell for about 2 days. She denies any sick contacts. Was recently treated here for an asthma exacerbation. She denies any chest pain or palpitations. She says she has been using her inhalers at home with no relief. In the ER, she was started on nebs and steroids and she is being admitted for acute asthma exacerbation Past Med Surg Social Fam HX - Past Medical History Medical history: asthma, hypertension, kidney stones Additional medical history: RECURRENT PNEUMONIA Psychiatric history: anxiety, depression - Past Surgical History Surgical History: Additional surgical history: 2 c-sections 06/1995, 03/1998. Uterine ablation 08/2000. Tubal ligation 1998. Excision of scalp cyst 12/2012 - Social History Smoking Status: Former smoker Smokeless Tobacco Status: No Alcohol use: rarely Drug use: none - Family History Father Family Member Ethnicity: Non- Living Status: Still Living Hx Family Cardiac Disorders: No Hx Family Respiratory Disorders: No Hx Family Cancer: No Hx Family GI Disorders: No Hx Family Endocrine Disorder: No Hx Family Neuromuscular Disorders: Yes (MS) Hx Family Neurologic Disorders: No Hx Family HEENT Disorders: No Hx Family Autoimmune Disorders: No Mother Family Member Ethnicity: Non- Living Status: Still Living Hx Family Cardiac Disorders: Yes (HTN) Hx Family Respiratory Disorders: No Hx Family Cancer: No Hx Family GI Disorders: No Hx Family Endocrine Disorder: Yes (DM) Hx Family Neuromuscular Disorders: No Hx Family Neurologic Disorders: No Hx Family HEENT Disorders: No Hx Family Autoimmune Disorders: No Internal Medicine - H&P: Meds Albuterol Sulfate [Proair Hfa] 2 puff IH Q6H PRN #1 hfa.aer.ad 08/17/17 [Rx] Biotin 10 mg PO DAILY 10/30/17 [History] Budesonide/Formoterol 160/4.5 [Symbicort 160/4.5] 1 puff IH BIDR 10/30/17 [Hi story] Citalopram Hydrobromide [Citalopram HBr] 40 mg PO DAILY 10/30/17 [History] Lisinopril 2.5 mg PO DAILY 10/30/17 [History] Loratadine [Claritin] 10 mg PO DAILY 10/30/17 [History] Multivit-Min/Iron Fum/Folic AC [Gkfjh-Exbwphy-Bycpbkfs Tablet] 1 tab PO DAILY 10/30/17 [History] raNITIdine HCl [Zantac] 150 mg PO BID 10/30/17 [History] Montelukast [Singulair] 10 mg PO DAILY 03/07/18 [History] predniSONE [PredniSONE] 10 mg PO DAILY 03/07/18 [History] PredniSONE [Deltasone] 40 mg PO BID #18 tablet 03/10/18 [Rx] Allergy/AdvReac Type Severity Reaction Status Date / Time Amoxicillin Allergy Severe See Verified 03/07/18 14:32 Comments Penicillins Allergy Severe See Verified 03/07/18 14:32 Comments All Systems PM: A 10-system review of systems was performed and is negative for pertinent findings except as documented above in the HPI. - Constitutional Constitutional: no chills, no fever(s), no night sweats - EENT Eyes: no change in vision, no discharge, no pain, no photophobia Ears: no ear discharge, no ear pain, no tinnitus Nose, mouth and throat: no dysphagia, no nasal discharge, no neck pain, no sore throat - Cardiovascular Cardiovascular ROS IM: dyspnea, no chest pain, no diaphoresis, no lightheadedness, no palpitations, no syncope - Respiratory Respiratory: cough, dyspnea, wheezing, no excessive phlegm production - Gastrointestinal Gastrointestinal: no abdominal pain, no diarrhea, no hematemesis, no hematochezia, no melena, no nausea, no vomiting - Genitourinary Genitourinary: no change in urinary stream, no dysuria, no flank pain, no hematuria - Musculoskeletal Musculoskeletal ROS IM: no numbness, no tingling - Integumentary Integumentary IM: no rash, no unusual bruising - Neurological Neurological ROS: no confusion, no convulsions, no focal weakness, no numbness, no tingling, no tremor(s) - Hematologic/Lymphatic Hematologic/Lymphatic: no easy bruising - Constitutional Vitals: Temp Pulse Resp BP Pulse Ox 98.2 F 102 18 137/90 96 04/20/18 08:51 04/20/18 13:35 04/20/18 13:35 04/20/18 13:35 04/20/18 13:35 General appearance: Present: mild distress Exam: Mild respiratory distress - Head Head exam: Present: atraumatic, normocephalic - Eye Eye exam: Present: PERRL, conjuntiva pink, sclera anicteric Pupils: Present: PERRL - Neck Neck exam general surgery: Present: supple, trachea midline. Absent: lymphadenopathy - Respiratory Respiratory exam: Present: prolonged expiratory phase, wheezes, tachypnea. Absent: accessory muscle use, rales, rhonchi - Cardiovascular Cardiovascular exam: Present: RRR, +S1, +S2. Absent: diastolic murmur, gallop, rubs, systolic murmur - GI/Abdominal GI/Abdominal exam: Present: normal bowel sounds, soft, no peritoneal signs. Absent: distended, tenderness - Extremities Exam Extremities exam: Present: warm, radial pulses palpable and symmetrical. Absent: calf tenderness, cyanotic, pedal edema - Neurological Exam Neurological exam: Present: CN II-XII intact, oriented X3, no focal deficits. Absent: pronater drift, facial droop, speech deficit - Skin Skin exam: Present: dry, intact Internal Med - H&P Results - Labs CBC & Chem 7: 04/20/18 09:21 04/20/18 09:21 Labs: Short CBC 04/20/18 Range/Units 09:21 WBC 10.1 (4.3-11.1) K/mcL Hgb 13.3 (11.5-15.4) g/dL Hct 40.8 (35.3-44.9) % Plt Count 331 (140-400) K/mcL Neutrophils # 6.4 (1.6-8.9) K/mcL BMP 04/20/18 09:21 Sodium 135 L Potassium 3.9 Chloride 103 Carbon Dioxide 22 L BUN 10 Creatinine 0.59 L Glucose 108 H Calcium 9.6 Cardiac Enzymes 04/20/18 Range/Units 09:21 Troponin I < 0.03 (< 0.04) ng/mL Liver Function 04/20/18 Range/Units 09:21 Total Bilirubin 0.8 (0.3-1.0) mg/dL Direct Bilirubin 0.2 (0.0-0.2) mg/dL AST 14 (13-39) Units/L ALT 13 (7-52) Units/L Alkaline Phosphatase 101 (34-104) Units/L Albumin 4.4 (3.5-5.7) g/dL - Impressions ITS Impressions Chest X-Ray 04/20/18 08:57 IMPRESSION: No acute cardiopulmonary disease. D/ / Kathryn Wang MD / Kathryn Wang MD Interpreting Provider: Kathryn Wang MD - Assessment and plan (1) Asthma with exacerbation Current Visit: Yes Status: Acute Assessment and plan: Has acute wheezing with shortness of breath Will start on round the clock duonebs and IV steroids Qualifiers: Qualified Code(s): J45.901 - Unspecified asthma with (acute) exacerbation (2) Hypertension Current Visit: Yes Status: Acute Assessment and plan: Continue lisinopril Qualifiers: Qualified Code(s): I10 - Essential (primary) hypertension (3) DVT prophylaxis Current Visit: Yes Status: Acute Assessment and plan: heparin sc - Time Spent With Patient Total time spent is greater than 50% in coordination of care (as documented) at patient's floor/unit and/or counseling patient:
[2018-04-20] MEDS: Ipratropium/Albuterol Neb 3 ML IH SCH ×3 (16:24→23:47)
[2018-04-20] MEDS ORDERED: *HR* Heparin 5,000 UNIT/ML VIAL SQ SCH (18:00)
[2018-04-20] MEDS: *HR* Heparin 5,000 UNIT/ML VIAL SQ SCH (18:24)
[2018-04-20] MEDS: MethylPREDNISolone 40 MG/ML VIAL IVP SCH ×2 (18:24→23:49)
[2018-04-20] MEDS: Budesonide/Formoterol 160/4.5 1 PUFF INH IH SCH (19:53)
--- NOTE | 2018-04-20 23:32 | Electrocardiograph Report ---
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
[2018-04-21] MEDS ORDERED: Ibuprofen 600 MG TABLET PO ONE (00:03)
[2018-04-21] MEDS: Ipratropium/Albuterol Neb 3 ML IH SCH ×3 (04:23→11:33)
[2018-04-21] MEDS: *HR* Heparin 5,000 UNIT/ML VIAL SQ SCH (05:32)
[2018-04-21 05:47] LABS: Basophils % 0.1 %; Hematocrit 40.5 % (35.3-44.9); Hemoglobin 13.2 g/dL (11.5-15.4); Immature Granulocytes % 1.3 % (0-4); Lymphocytes # 1.2 K/mcL (0.6-4.6); Mean Corpuscular HGB Conc 32.6 g/dL (31.6-35.5); Mean Corpuscular Hemoglobin 29.1 pg (28.0-33.3); Mean Corpuscular Volume 89.4 fL (83.0-100.0); Mean Platelet Volume 8.4 fL (9.4-12.4); Monocytes # 0.3 K/mcL (0.0-1.3); Monocytes % 2.8 %; Neutrophils # 7.8 K/mcL (1.6-8.9); Platelet Count 369 K/mcL (140-400); Red Blood Count 4.53 M/mcL (3.82-4.97); Red Cell Distribution Width 13.5 % (11.5-14.5); Segmented Neutrophils % 82.8 %
[2018-04-21 06:04] LABS: BUN/Creatinine Ratio 29 (6-26); Blood Urea Nitrogen 17 mg/dL (6-20); Calcium 9.7 mg/dL (8.6-10.3); Carbon Dioxide 20 mEq/L (23-29); Chloride 106 mEq/L (98-107); Glucose 153 mg/dL (70-105); Magnesium 2.2 mg/dL (1.6-2.6); Osmolality,Calculated 287 (280-300); Phosphorous 3.9 mg/dL (2.7-4.5); Potassium 4.2 mEq/L (3.5-5.1); Sodium 136 mEq/L (136-145); eGFR For Non-African Americans > 60 (> 60)
[2018-04-21 07:23] VITALS: BP 124/74
[2018-04-21] MEDS: Budesonide/Formoterol 160/4.5 1 PUFF INH IH SCH (07:39)
[2018-04-21] MEDS: MethylPREDNISolone 40 MG/ML VIAL IVP SCH (08:02)
[2018-04-21] MEDS ORDERED: Loratadine 10 MG TABLET PO SCH (09:00)
[2018-04-21] MEDS ORDERED: Multivit/Ca/Min/Fe/FA 1 TAB TABLET PO SCH (09:00)
--- NOTE | 2018-04-21 10:04 | Discharge Summary ---
- NOTES TO OUTPATIENT PROVIDER Notes to Outpatient Provider: f/u with PCP within a week. Orders not resulted at time of discharge: Pending orders 04/20/18 09:24 Culture,Blood [BC] Stat 04/20/18 12:47 Respiratory Infection Panel [MOLMIC] Routine Date of Encounter: 04/21/18 Time of Encounter: 09:57 - Discharge Diagnosis (1) Asthma with exacerbation Priority: Primary Status: Acute Qualifiers: Qualified Code(s): J45.901 - Unspecified asthma with (acute) exacerbation (2) DVT prophylaxis Priority: Primary Status: Acute (3) Hypertension Priority: Secondary Status: Chronic Qualifiers: Hypertension type: essential hypertension Qualified Code(s): I10 - Essential (primary) hypertension Hospital course: Ms. Parra is a 42 year old female with pmh of asthma since age 13 presenting with complaints of shortness of breath, productive cough with wheezing, and feeling unwell for about 2 days. She denies any sick contacts. Was recently treated here for an asthma exacerbation. She denies any chest pain or palpitations. She says she has been using her inhalers at home with no relief. In the ER, she was started on nebs and steroids and she is being admitted for acute asthma exacerbation. Her symptoms have improved rapidly with IV steroid and breathing treatment. On the second day, she feels better and states that she is ready to go home. She will be discharged home today. She was instructed to take burst dose of prednisone and then resume daily prednisone that pt takes at home. She will f/u with PCP within a week. Discharge discussed with: patient Time spent discussing smoking cessation with patient: more than 10 minutes - Time Spent with Patient Total time spent providing and/or coordinating discharge services: Greater than 30 minutes - Discharge Medications Prescriptions: predniSONE [PredniSONE] 20 mg PO DAILY 3 Days #6 tablet Home Medications: Albuterol Sulfate [Proair Hfa] 2 puff IH Q6H PRN #1 hfa.aer.[email or web address] 08/17/17 [Rx] Biotin 10 mg PO DAILY 10/30/17 [History] Budesonide/Formoterol 160/4.5 [Symbicort 160/4.5] 1 puff IH BIDR 10/30/17 [History] Citalopram Hydrobromide [Citalopram HBr] 40 mg PO DAILY 10/30/17 [History] Lisinopril 2.5 mg PO DAILY 10/30/17 [History] Loratadine [Claritin] 10 mg PO DAILY 10/30/17 [History] Multivit-Min/Iron Fum/Folic AC [Potxc-Bedkesk-Iwgirapo Tablet] 1 tab PO DAILY 10/30/17 [History] raNITIdine HCl [Zantac] 150 mg PO BID 10/30/17 [History] Montelukast [Singulair] 10 mg PO DAILY 03/07/18 [History] predniSONE [PredniSONE] 10 mg PO DAILY 03/07/18 [History] predniSONE [PredniSONE] 20 mg PO DAILY 3 Days #6 tablet 04/21/18 [Rx] Allergies/Adverse Reactions: Allergy/AdvReac Type Severity Reaction Status Date / Time Amoxicillin Allergy Severe See Verified 03/07/18 14:32 Comments Penicillins Allergy Severe See Verified 03/07/18 14:32 Comments Date of admission: 04/20/18 13:44 Primary care physician: Anila Pineda DO Consults: 04/21/18 09:52 Consult to Nurse Navigator [CONS] Routine Comment: COPD Anticipated date of discharge: 04/21/18 - Constitutional Vitals: Temp Pulse Resp BP Pulse Ox 98.0 F 86 16 124/74 91 04/21/18 07:22 04/21/18 07:22 04/21/18 07:38 04/21/18 07:22 04/21/18 07:38 General appearance: Present: cooperative, A&O X 3, answers questions appropriately Exam: PHYSICAL EXAMINATION: GENERAL APPEARANCE: The patient is alert, oriented and in no acute distress. HEENT: Head is normocephalic. The sinuses are nontender. Pupils are equal and reactive. The nares are patent. Oropharynx clear without lesions. NECK: Supple without lymphadenopathy. HEART: Regular rate and rhythm. LUNGS: No crackles or wheezes are heard. ABDOMEN: Soft, nontender, nondistended with good bowel sounds heard. Inguinal area is normal. EXTREMITIES: Without cyanosis, clubbing or edema. NEUROLOGICAL: Gross nonfocal. SKIN: Warm and dry without any rash. - Patient Status Disposition: Home, Self-Care Condition: Good Functional capacity at discharge: independent ambulation Overall status at discharge: patient is progressing back to baseline - Discharge Instructions Follow Up With: Anila Pineda DO [Primary Care Provider] - Forms: Inpatient Work/School Release - Diet and Activity Activity: increase activity as tolerated Diet: advance to your usual diet
[2018-04-22] MEDS ORDERED: predniSONE 20 MG TABLET PO SCH (09:00)
== END 2018-04-21 11:36 | disposition home or self-care (01) ==
LOC: EMEROOARM 08:44 → 3BNU 08:44
PROVIDERS: ADMIT Student in an Organized Health Care Education/Training Program; ATTEND Student in an Organized Health Care Education/Training Program

== ENCOUNTER 2019-01-16 00:51 | Observation (INO) ==
[2019-01-16 01:12] LABS: BUN/Creatinine Ratio 18 (6-26); Blood Urea Nitrogen 11 mg/dL (6-20); Calcium 8.5 mg/dL (8.6-10.3); Carbon Dioxide 26 mEq/L (23-29); Chloride 106 mEq/L (98-107); Glucose 122 mg/dL (70-105); Osmolality,Calculated 287 (280-300); Potassium 3.5 mEq/L (3.5-5.1); Sodium 138 mEq/L (136-145); eGFR For African Americans > 60 (> 60); eGFR For Non-African Americans > 60 (> 60)
[2019-01-16] MEDS ORDERED: Ipratropium/Albuterol Neb 3 ML IH ONE ×2 (01:25→01:27)
[2019-01-16] MEDS ORDERED: methylPREDNISolone 125 MG/2 ML VIAL IVP ONE (01:27)
[2019-01-16 01:52] LABS: Basophils # 0.1 K/mcL (0.0-0.2); Eosinophils % 10.6 %; Hematocrit 35.1 % (35.3-44.9); Hemoglobin 11.6 g/dL (11.5-15.4); Immature Granulocytes % 0.2 % (0-4); Lymphocytes # 2.2 K/mcL (0.6-4.6); Lymphocytes % 23.8 %; Mean Corpuscular Hemoglobin 30.4 pg (28.0-33.3); Mean Corpuscular Volume 92.1 fL (83.0-100.0); Mean Platelet Volume 8.4 fL (9.4-12.4); Monocytes # 0.9 K/mcL (0.0-1.3); Monocytes % 9.1 %; Neutrophils # 5.2 K/mcL (1.6-8.9); Platelet Count 276 K/mcL (140-400); Red Blood Count 3.81 M/mcL (3.82-4.97); Red Cell Distribution Width 14.6 % (11.5-14.5); Segmented Neutrophils % 55.3 %; White Blood Count 9.4 K/mcL (4.3-11.1)
[2019-01-16] MEDS ORDERED: Ipratropium/Albuterol Neb 3 ML ONE (02:00)
[2019-01-16 02:01] LABS: VBG HCO3 25 mEq/L (21-27); VBG PCO2 52 mmHg (41-51); VBG PH 7.29 pH Units (7.32-7.42); VBG PO2 56 mmHg (25-50)
[2019-01-16] MEDS ORDERED: Naloxone 0.4 MG/ML INJ IVP PRN (04:24)
[2019-01-16] MEDS: Ipratropium/Albuterol Neb 3 ML IH SCH ×5 (07:15→23:35)
[2019-01-16] MEDS: methylPREDNISolone 125 MG/2 ML VIAL IVP SCH ×3 (07:30→19:58)
[2019-01-16] MEDS: Acetaminophen 325 MG TABLET PO PRN ×3 (09:12→19:59)
[2019-01-16 10:06] LABS: Adenovirus Not Detected (Not Detect); Bordetella Pertussis Not Detected (Not Detect); Chlamydophila pneumoniae Not Detected (Not Detect); Coronavirus 229E Not Detected (Not Detect); Coronavirus HKU1 Not Detected (Not Detect); Coronavirus NL63 Not Detected (Not Detect); Coronavirus OC43 Not Detected (Not Detect); Human Metapneumovirus Not Detected (Not Detect); Human Rhinovirus/Enterovirus DETECTED (Not Detect); Influenza A Subtype 2009 H1 Not Detected (Not Detect); Influenza A Untypeable Not Detected (Not Detect); Influenza B Not Detected (Not Detect); Mycoplasma pneumoniae Not Detected (Not Detect); Parainfluenza Virus 1 Not Detected (Not Detect); Parainfluenza Virus 2 Not Detected (Not Detect); Parainfluenza Virus 3 Not Detected (Not Detect); Parainfluenza Virus 4 Not Detected (Not Detect); Respiratory Syncytial Virus Not Detected (Not Detect)
[2019-01-16] MEDS ORDERED: traMADol 50 MG TABLET PO ONE (15:19)
[2019-01-17] MEDS: methylPREDNISolone 125 MG/2 ML VIAL IVP SCH ×2 (02:04→08:09)
[2019-01-17] MEDS: Ipratropium/Albuterol Neb 3 ML IH SCH ×6 (03:59→23:35)
[2019-01-17 05:02] LABS: Basophils % 0.1 %; Hematocrit 37.2 % (35.3-44.9); Hemoglobin 12.7 g/dL (11.5-15.4); Immature Granulocytes % 0.4 % (0-4); Lymphocytes % 6.5 %; Mean Corpuscular HGB Conc 34.1 g/dL (31.6-35.5); Mean Corpuscular Hemoglobin 30.8 pg (28.0-33.3); Mean Corpuscular Volume 90.3 fL (83.0-100.0); Mean Platelet Volume 8.7 fL (9.4-12.4); Monocytes # 0.3 K/mcL (0.0-1.3); Monocytes % 1.9 %; Neutrophils # 14.2 K/mcL (1.6-8.9); Platelet Count 354 K/mcL (140-400); Red Blood Count 4.12 M/mcL (3.82-4.97); Red Cell Distribution Width 14.6 % (11.5-14.5); Segmented Neutrophils % 91.1 %
[2019-01-17 05:07] LABS: White Blood Count 15.6 K/mcL (4.3-11.1)
[2019-01-17 05:24] LABS: BUN/Creatinine Ratio 23 (6-26); Blood Urea Nitrogen 12 mg/dL (6-20); Calcium 9.8 mg/dL (8.6-10.3); Carbon Dioxide 23 mEq/L (23-29); Chloride 104 mEq/L (98-107); Glucose 155 mg/dL (70-105); Osmolality,Calculated 289 (280-300); Potassium 3.9 mEq/L (3.5-5.1); Sodium 138 mEq/L (136-145); eGFR For African Americans > 60 (> 60); eGFR For Non-African Americans > 60 (> 60)
[2019-01-17] MEDS ORDERED: methylPREDNISolone 125 MG/2 ML VIAL IVP SCH (11:30)
[2019-01-17] MEDS: MethylPREDNISolone 40 MG/ML VIAL IVP SCH (17:24)
[2019-01-18] MEDS: Ipratropium/Albuterol Neb 3 ML IH SCH ×2 (03:50→08:26)
[2019-01-18 04:34] LABS: Basophils % 0.1 %; Hematocrit 37.5 % (35.3-44.9); Hemoglobin 12.6 g/dL (11.5-15.4); Immature Granulocytes % 0.4 % (0-4); Lymphocytes # 2.2 K/mcL (0.6-4.6); Lymphocytes % 13.8 %; Mean Corpuscular HGB Conc 33.6 g/dL (31.6-35.5); Mean Corpuscular Hemoglobin 30.7 pg (28.0-33.3); Mean Corpuscular Volume 91.2 fL (83.0-100.0); Mean Platelet Volume 8.7 fL (9.4-12.4); Monocytes # 0.8 K/mcL (0.0-1.3); Monocytes % 5.2 %; Neutrophils # 12.6 K/mcL (1.6-8.9); Platelet Count 351 K/mcL (140-400); Red Blood Count 4.11 M/mcL (3.82-4.97); Red Cell Distribution Width 14.8 % (11.5-14.5); Segmented Neutrophils % 80.5 %; White Blood Count 15.6 K/mcL (4.3-11.1)
[2019-01-18] MEDS: MethylPREDNISolone 40 MG/ML VIAL IVP SCH (05:50)
[2019-01-18 06:48] VITALS: BP 118/84
[2019-01-18] MEDS ORDERED: FLU Vac QV 19-20 (6Month+)/PF 0.5 ML SYRINGE IM ONE (09:12)
== END 2019-01-18 10:30 | disposition home or self-care (01) ==
LOC: 2ANU 00:51 → EMEROOARM 00:51 → SUATTDRO 03:14 → 2ANU 03:36
PROVIDERS: ADMIT Internal Medicine; ATTEND Internal Medicine

== ENCOUNTER 2019-02-22 00:52 | Observation (INO) ==
[2019-02-22] MEDS ORDERED: *HR* LORazepam 2 MG/ML VIAL IVP ONE (01:00)
[2019-02-22] MEDS ORDERED: Ipratropium/Albuterol Neb 3 ML IH ONE (01:00)
[2019-02-22] MEDS ORDERED: methylPREDNISolone 125 MG/2 ML VIAL IVP ONE (01:00)
[2019-02-22] MEDS ORDERED: Ipratropium/Albuterol Neb 3 ML ONE (01:04)
[2019-02-22 01:20] LABS: Basophils # 0.1 K/mcL (0.0-0.2); Basophils % 0.7 %; Eosinophils % 5.4 %; Hematocrit 42.6 % (35.3-44.9); Immature Granulocytes % 0.4 % (0-4); Lymphocytes # 5.5 K/mcL (0.6-4.6); Lymphocytes % 28.8 %; Mean Corpuscular HGB Conc 32.9 g/dL (31.6-35.5); Mean Corpuscular Hemoglobin 30.1 pg (28.0-33.3); Mean Corpuscular Volume 91.6 fL (83.0-100.0); Mean Platelet Volume 8.5 fL (9.4-12.4); Monocytes # 1.4 K/mcL (0.0-1.3); Monocytes % 7.5 %; Neutrophils # 10.9 K/mcL (1.6-8.9); Platelet Count 418 K/mcL (140-400); Red Blood Count 4.65 M/mcL (3.82-4.97); Red Cell Distribution Width 13.6 % (11.5-14.5); Segmented Neutrophils % 57.2 %; White Blood Count 19.1 K/mcL (4.3-11.1)
[2019-02-22 01:39] LABS: BUN/Creatinine Ratio 20 (6-26); Blood Urea Nitrogen 13 mg/dL (6-20); Calcium 9.9 mg/dL (8.6-10.3); Carbon Dioxide 25 mEq/L (23-29); Chloride 109 mEq/L (98-107); Glucose 116 mg/dL (70-105); Osmolality,Calculated 299 (280-300); Potassium 3.5 mEq/L (3.5-5.1); Sodium 144 mEq/L (136-145); eGFR For African Americans > 60 (> 60); eGFR For Non-African Americans > 60 (> 60)
[2019-02-22 01:39] LABS: ABG Base Excess -2 mEq/L (-2 to 3); ABG HCO3 26 mEq/L (21-27); ABG Oxygen Saturation 99 % (95-98); ABG PCO2 56 mmHg (35-45); ABG PH 7.27 pH Units (7.32-7.45); ABG PO2 140 mmHg (85-104); ABG TCO2 27 mEq/L (20-26)
[2019-02-22] MEDS ORDERED: Ondansetron 4 MG/2 ML VIAL IVP PRN (03:54)
[2019-02-22] MEDS ORDERED: Naloxone 0.4 MG/ML INJ IVP PRN (03:54)
[2019-02-22] MEDS ORDERED: 0.9 % Sodium Chloride 1,000 ML IVC SCH (04:00)
[2019-02-22] MEDS ORDERED: Albuterol 2.5 MG/3 ML NEBULIZER IH PRN (04:00)
[2019-02-22 04:50] LABS: ABG Base Excess 0 mEq/L (-2 to 3); ABG HCO3 23 mEq/L (21-27); ABG Oxygen Saturation 94 % (95-98); ABG PCO2 34 mmHg (35-45); ABG PH 7.45 pH Units (7.32-7.45); ABG PO2 68 mmHg (85-104); ABG TCO2 24 mEq/L (20-26)
[2019-02-22] MEDS: MethylPREDNISolone 40 MG/ML VIAL IVP SCH ×3 (05:46→18:40)
[2019-02-22] MEDS: Azithromycin 500 MG in 0.9 % Sodium Chloride 250 ML IVPB SCH (05:50)
[2019-02-22 06:48] LABS: Basophils % 0.2 %; Eosinophils % 0.1 %; Hematocrit 35.5 % (35.3-44.9); Hemoglobin 11.7 g/dL (11.5-15.4); Immature Granulocytes % 0.3 % (0-4); Lymphocytes # 0.4 K/mcL (0.6-4.6); Lymphocytes % 3.9 %; Mean Corpuscular Hemoglobin 30.6 pg (28.0-33.3); Mean Corpuscular Volume 92.9 fL (83.0-100.0); Mean Platelet Volume 8.5 fL (9.4-12.4); Monocytes # 0.1 K/mcL (0.0-1.3); Monocytes % 0.6 %; Neutrophils # 10.4 K/mcL (1.6-8.9); Platelet Count 276 K/mcL (140-400); Red Blood Count 3.82 M/mcL (3.82-4.97); Red Cell Distribution Width 13.6 % (11.5-14.5); Segmented Neutrophils % 94.9 %
[2019-02-22 07:09] LABS: BUN/Creatinine Ratio 23 (6-26); Blood Urea Nitrogen 11 mg/dL (6-20); Calcium 8.7 mg/dL (8.6-10.3); Carbon Dioxide 23 mEq/L (23-29); Chloride 107 mEq/L (98-107); Glucose 160 mg/dL (70-105); Osmolality,Calculated 297 (280-300); Potassium 3.8 mEq/L (3.5-5.1); Sodium 142 mEq/L (136-145); eGFR For African Americans > 60 (> 60); eGFR For Non-African Americans > 60 (> 60)
[2019-02-22] MEDS: Ipratropium/Albuterol Neb 3 ML IH SCH ×4 (07:32→20:32)
[2019-02-22] MEDS ORDERED: Famotidine 20 MG TABLET PO SCH (09:00)
[2019-02-22] MEDS ORDERED: Acetaminophen 325 MG TABLET PO PRN (13:20)
[2019-02-22] MEDS: Famotidine 20 MG TABLET PO SCH (14:06)
[2019-02-22] MEDS ORDERED: Acetaminophen/Aspirin/Caffeine TABLET PO PRN (18:16)
[2019-02-23] MEDS: MethylPREDNISolone 40 MG/ML VIAL IVP SCH ×3 (00:34→11:50)
[2019-02-23] MEDS: Ipratropium/Albuterol Neb 3 ML IH SCH ×4 (00:44→11:29)
[2019-02-23] MEDS: Azithromycin 500 MG in 0.9 % Sodium Chloride 250 ML IVPB SCH (05:57)
[2019-02-23 06:26] LABS: Hematocrit 35.1 % (35.3-44.9); Hemoglobin 11.6 g/dL (11.5-15.4); Mean Corpuscular Hemoglobin 30.7 pg (28.0-33.3); Mean Corpuscular Volume 92.9 fL (83.0-100.0); Mean Platelet Volume 8.7 fL (9.4-12.4); Platelet Count 303 K/mcL (140-400); Red Blood Count 3.78 M/mcL (3.82-4.97); White Blood Count 12.9 K/mcL (4.3-11.1)
[2019-02-23 06:28] LABS: VBG HCO3 22 mEq/L (21-27); VBG PCO2 35 mmHg (41-51); VBG PH 7.41 pH Units (7.32-7.42); VBG PO2 108 mmHg (25-50)
[2019-02-23] MEDS: Famotidine 20 MG TABLET PO SCH (08:20)
[2019-02-23 12:10] VITALS: BP 118/82
== END 2019-02-23 14:45 | disposition home or self-care (01) ==
LOC: CDU 00:52 → EMEROOARM 00:52 → SUATTDRO 03:04 → CDU 03:58
PROVIDERS: ADMIT Internal Medicine; ATTEND Internal Medicine

== ENCOUNTER 2019-04-05 16:09 | Observation (INO) ==
[2019-04-05] MEDS ORDERED: Acetaminophen 325 MG TABLET PO STA (16:27)
[2019-04-05] MEDS ORDERED: Ipratropium/Albuterol Neb 3 ML IH STA (16:27)
[2019-04-05] MEDS ORDERED: 0.9 % Sodium Chloride 1,000 ML IVC STA (16:28)
[2019-04-05] MEDS ORDERED: Ondansetron 4 MG/2 ML VIAL IVP STA (16:33)
[2019-04-05 17:07] LABS: Basophils # 0.1 K/mcL (0.0-0.2); Basophils % 0.3 %; Eosinophils # 0.2 K/mcL (0.0-0.6); Eosinophils % 0.8 %; Hematocrit 38.6 % (35.3-44.9); Hemoglobin 12.8 g/dL (11.5-15.4); Immature Granulocytes % 0.4 % (0-4); Lymphocytes # 1.8 K/mcL (0.6-4.6); Lymphocytes % 9.2 %; Mean Corpuscular HGB Conc 33.2 g/dL (31.6-35.5); Mean Corpuscular Hemoglobin 30.3 pg (28.0-33.3); Mean Corpuscular Volume 91.5 fL (83.0-100.0); Mean Platelet Volume 8.2 fL (9.4-12.4); Monocytes # 1.1 K/mcL (0.0-1.3); Monocytes % 5.6 %; Neutrophils # 16.7 K/mcL (1.6-8.9); Platelet Count 336 K/mcL (140-400); Red Blood Count 4.22 M/mcL (3.82-4.97); Red Cell Distribution Width 14.9 % (11.5-14.5); Segmented Neutrophils % 83.7 %
[2019-04-05 17:22] LABS: BUN/Creatinine Ratio 16 (6-26); Blood Urea Nitrogen 10 mg/dL (6-20); Calcium 9.2 mg/dL (8.6-10.3); Carbon Dioxide 21 mEq/L (23-29); Chloride 102 mEq/L (98-107); Glucose 106 mg/dL (70-105); Osmolality,Calculated 283 (280-300); Potassium 3.6 mEq/L (3.5-5.1); Sodium 137 mEq/L (136-145); Troponin I < 0.03 ng/mL (< 0.04); eGFR For African Americans > 60 (> 60); eGFR For Non-African Americans > 60 (> 60)
[2019-04-05] MEDS ORDERED: Doxycycline 100 MG CAPSULE PO ONE (17:54)
[2019-04-05] MEDS ORDERED: methylPREDNISolone 125 MG/2 ML VIAL IVP ONE (18:00)
[2019-04-05] MEDS ORDERED: Ondansetron 4 MG/2 ML VIAL IVP PRN (21:29)
[2019-04-05] MEDS ORDERED: Naloxone 0.4 MG/ML INJ IVP PRN (21:29)
[2019-04-05] MEDS ORDERED: 0.9 % Sodium Chloride 1,000 ML IVC SCH (21:30)
[2019-04-05] MEDS: cefTRIAXone 1,000 MG in Water for inj. (sterile) 10 ML IVP SCH (22:07)
[2019-04-05] MEDS: Azithromycin 500 MG in D5% in Water 250 ML IVPB SCH (22:09)
[2019-04-05] MEDS: Albuterol 2.5 MG/3 ML NEBULIZER IH PRN (22:15)
[2019-04-05] MEDS: Benzonatate 100 MG CAPSULE PO PRN (22:15)
[2019-04-05] MEDS: Acetaminophen 325 MG TABLET PO PRN (23:16)
[2019-04-05 23:23] LABS: Adenovirus Not Detected (Not Detect); Bordetella Pertussis Not Detected (Not Detect); Chlamydophila pneumoniae Not Detected (Not Detect); Coronavirus 229E Not Detected (Not Detect); Coronavirus HKU1 Not Detected (Not Detect); Coronavirus NL63 Not Detected (Not Detect); Coronavirus OC43 Not Detected (Not Detect); Human Metapneumovirus Not Detected (Not Detect); Human Rhinovirus/Enterovirus DETECTED (Not Detect); Influenza A Subtype 2009 H1 Not Detected (Not Detect); Influenza B Not Detected (Not Detect); Mycoplasma pneumoniae Not Detected (Not Detect); Parainfluenza Virus 1 Not Detected (Not Detect); Parainfluenza Virus 2 Not Detected (Not Detect); Parainfluenza Virus 3 Not Detected (Not Detect); Parainfluenza Virus 4 Not Detected (Not Detect); Respiratory Syncytial Virus Not Detected (Not Detect)
[2019-04-05] MEDS: Ipratropium/Albuterol Neb 3 ML IH SCH (23:51)
[2019-04-06] MEDS: Albuterol 2.5 MG/3 ML NEBULIZER IH PRN ×3 (01:16→20:07)
[2019-04-06] MEDS: Ipratropium/Albuterol Neb 3 ML IH SCH ×4 (05:41→21:53)
[2019-04-06 07:06] LABS: Hematocrit 36.1 % (35.3-44.9); Hemoglobin 11.5 g/dL (11.5-15.4); Mean Corpuscular HGB Conc 31.9 g/dL (31.6-35.5); Mean Corpuscular Hemoglobin 30.1 pg (28.0-33.3); Mean Corpuscular Volume 94.5 fL (83.0-100.0); Mean Platelet Volume 8.3 fL (9.4-12.4); Platelet Count 308 K/mcL (140-400); Red Blood Count 3.82 M/mcL (3.82-4.97); Red Cell Distribution Width 14.6 % (11.5-14.5)
[2019-04-06 07:39] LABS: BUN/Creatinine Ratio 18 (6-26); Blood Urea Nitrogen 9 mg/dL (6-20); Calcium 9.1 mg/dL (8.6-10.3); Carbon Dioxide 21 mEq/L (23-29); Chloride 104 mEq/L (98-107); Glucose 133 mg/dL (70-105); Magnesium 1.9 mg/dL (1.6-2.6); Osmolality,Calculated 291 (280-300); Phosphorous 3.2 mg/dL (2.7-4.5); Potassium 3.8 mEq/L (3.5-5.1); Sodium 140 mEq/L (136-145); eGFR For African Americans > 60 (> 60); eGFR For Non-African Americans > 60 (> 60)
[2019-04-06] MEDS: cefTRIAXone 1,000 MG in Water for inj. (sterile) 10 ML IVP SCH (10:58)
[2019-04-06] MEDS: predniSONE 20 MG TABLET PO SCH (10:58)
[2019-04-06] MEDS: Benzonatate 100 MG CAPSULE PO PRN ×2 (16:16→21:38)
[2019-04-06] MEDS ORDERED: methylPREDNISolone 125 MG/2 ML VIAL IVP ONE (17:49)
[2019-04-06] MEDS: Azithromycin 500 MG in D5% in Water 250 ML IVPB SCH (21:25)
[2019-04-06] MEDS: Budesonide/Formoterol 80/4.5 1 PUFF INH IH SCH (21:53)
[2019-04-07] MEDS: Acetaminophen 325 MG TABLET PO PRN (03:07)
[2019-04-07] MEDS: Ipratropium/Albuterol Neb 3 ML IH SCH ×2 (04:02→10:02)
[2019-04-07 05:21] LABS: Basophils % 0.2 %; Eosinophils % 0.3 %; Hematocrit 34.9 % (35.3-44.9); Hemoglobin 11.3 g/dL (11.5-15.4); Immature Granulocytes % 0.7 % (0-4); Lymphocytes # 2.9 K/mcL (0.6-4.6); Lymphocytes % 18.5 %; Mean Corpuscular HGB Conc 32.4 g/dL (31.6-35.5); Mean Corpuscular Hemoglobin 29.7 pg (28.0-33.3); Mean Corpuscular Volume 91.6 fL (83.0-100.0); Mean Platelet Volume 8.3 fL (9.4-12.4); Monocytes # 0.7 K/mcL (0.0-1.3); Monocytes % 4.7 %; Neutrophils # 11.7 K/mcL (1.6-8.9); Platelet Count 291 K/mcL (140-400); Red Blood Count 3.81 M/mcL (3.82-4.97); Red Cell Distribution Width 14.6 % (11.5-14.5); Segmented Neutrophils % 75.6 %; White Blood Count 15.4 K/mcL (4.3-11.1)
[2019-04-07] MEDS ORDERED: levoFLOXacin 750 MG TABLET PO SCH (09:00)
[2019-04-07] MEDS ORDERED: Multivit/Ca/Min/Fe/FA 1 TAB TABLET PO SCH (09:00)
[2019-04-07] MEDS: predniSONE 20 MG TABLET PO SCH (09:51)
[2019-04-07] MEDS: Budesonide/Formoterol 80/4.5 1 PUFF INH IH SCH (10:02)
[2019-04-07] MEDS ORDERED: Isovue-370 500 ML BOTTLE IVP ONE (11:36)
[2019-04-07] MEDS: Albuterol 2.5 MG/3 ML NEBULIZER IH PRN (13:35)
[2019-04-07 14:15] VITALS: BP 123/85
== END 2019-04-07 15:54 | disposition home or self-care (01) ==
LOC: 3ANU 16:09 → EMEROOARM 16:09 → SUATTDRO 18:54 → 3ANU 20:07
PROVIDERS: ADMIT Student in an Organized Health Care Education/Training Program; ATTEND Internal Medicine

== ENCOUNTER 2019-06-05 13:58 | Observation (INO) ==
[2019-06-05] MEDS ORDERED: 0.9 % Sodium Chloride 1,000 ML IVC ONE (14:13)
[2019-06-05 14:52] LABS: Basophils # 0.1 K/mcL (0.0-0.2); Basophils % 0.8 %; Eosinophils # 0.6 K/mcL (0.0-0.6); Eosinophils % 7.1 %; Hematocrit 41.9 % (35.3-44.9); Hemoglobin 13.5 g/dL (11.5-15.4); Immature Granulocytes % 0.1 % (0-4); Lymphocytes # 2.4 K/mcL (0.6-4.6); Lymphocytes % 28.7 %; Mean Corpuscular HGB Conc 32.2 g/dL (31.6-35.5); Mean Corpuscular Hemoglobin 29.8 pg (28.0-33.3); Mean Corpuscular Volume 92.5 fL (83.0-100.0); Mean Platelet Volume 8.4 fL (9.4-12.4); Monocytes # 0.7 K/mcL (0.0-1.3); Monocytes % 7.8 %; Neutrophils # 4.6 K/mcL (1.6-8.9); Platelet Count 356 K/mcL (140-400); Red Blood Count 4.53 M/mcL (3.82-4.97); Red Cell Distribution Width 13.9 % (11.5-14.5); Segmented Neutrophils % 55.5 %; White Blood Count 8.3 K/mcL (4.3-11.1)
[2019-06-05] MEDS ORDERED: Ipratropium/Albuterol Neb 3 ML IH ONE (14:53)
[2019-06-05 15:11] LABS: BUN/Creatinine Ratio 17 (6-26); Blood Urea Nitrogen 11 mg/dL (6-20); Calcium 9.3 mg/dL (8.6-10.3); Carbon Dioxide 22 mEq/L (23-29); Chloride 107 mEq/L (98-107); Glucose 94 mg/dL (70-105); Osmolality,Calculated 283 (280-300); Potassium 3.8 mEq/L (3.5-5.1); Sodium 137 mEq/L (136-145); Troponin I < 0.03 ng/mL (< 0.04); eGFR For African Americans > 60 (> 60); eGFR For Non-African Americans > 60 (> 60)
[2019-06-05] MEDS ORDERED: methylPREDNISolone 125 MG/2 ML VIAL IVP ONE (15:31)
[2019-06-05] MEDS ORDERED: Isovue-370 500 ML BOTTLE IVP ONE (16:18)
[2019-06-05] MEDS ORDERED: Azithromycin 500 MG in 0.9 % Sodium Chloride 250 ML IVPB ONE (17:13)
[2019-06-05] MEDS ORDERED: cefTRIAXone 1,000 MG in 0.9 % Sodium Chloride Mini Bag 100 ML IVPB ONE (17:14)
[2019-06-05] MEDS ORDERED: Naloxone 0.4 MG/ML INJ IVP PRN (17:24)
[2019-06-05] MEDS ORDERED: Ondansetron 4 MG/2 ML VIAL IVP PRN (17:24)
[2019-06-05] MEDS ORDERED: Acetaminophen 325 MG TABLET PO PRN (17:24)
[2019-06-05] MEDS ORDERED: D5% in Water 1,000 ML IVC PRN (17:27)
[2019-06-05] MEDS ORDERED: Dextrose Gel 15 GM/37.5 ML TUBE PO PRN ×2 (17:27)
[2019-06-05] MEDS ORDERED: *HR* Dextrose 50 % in Water (Syg) 50 ML SYRINGE IVP PRN (17:27)
[2019-06-05 18:51] LABS: BUN/Creatinine Ratio 17 (6-26); Blood Urea Nitrogen 10 mg/dL (6-20); Calcium 9.1 mg/dL (8.6-10.3); Carbon Dioxide 21 mEq/L (23-29); Chloride 108 mEq/L (98-107); Glucose 97 mg/dL (70-105); Osmolality,Calculated 283 (280-300); Potassium 3.8 mEq/L (3.5-5.1); Sodium 137 mEq/L (136-145); eGFR For African Americans > 60 (> 60); eGFR For Non-African Americans > 60 (> 60)
[2019-06-05] MEDS: Ipratropium/Albuterol Neb 3 ML IH ONE ×2 (18:56→19:01)
[2019-06-05 19:04] LABS: ABG Base Excess -2 mEq/L (-2 to 3); ABG HCO3 20 mEq/L (21-27); ABG Oxygen Saturation 97 % (95-98); ABG PCO2 27 mmHg (35-45); ABG PH 7.49 pH Units (7.32-7.45); ABG PO2 77 mmHg (85-104); ABG TCO2 21 mEq/L (20-26)
[2019-06-05] MEDS: Budesonide/Formoterol 80/4.5 1 PUFF INH IH SCH ×2 (20:16→20:23)
[2019-06-05] MEDS: Ipratropium/Albuterol Neb 3 ML IH SCH ×2 (20:17→23:42)
[2019-06-05] MEDS: *HR* Heparin 5,000 UNIT/ML VIAL SQ SCH (21:15)
[2019-06-05] MEDS: methylPREDNISolone 125 MG/2 ML VIAL IVP SCH (23:11)
[2019-06-05] MEDS: Benzonatate 100 MG CAPSULE PO PRN (23:20)
[2019-06-06 00:05] LABS: Adenovirus Not Detected (Not Detect); Coronavirus 229E Not Detected (Not Detect); Coronavirus HKU1 Not Detected (Not Detect); Coronavirus NL63 Not Detected (Not Detect); Coronavirus OC43 Not Detected (Not Detect); Human Metapneumovirus Not Detected (Not Detect); Human Rhinovirus/Enterovirus Not Detected (Not Detect); Influenza A Subtype 2009 H1 Not Detected (Not Detect); Influenza B Not Detected (Not Detect); Parainfluenza Virus 1 Not Detected (Not Detect); Parainfluenza Virus 2 Not Detected (Not Detect)
[2019-06-06 00:06] LABS: Bordetella Pertussis Not Detected (Not Detect); Chlamydophila pneumoniae Not Detected (Not Detect); Mycoplasma pneumoniae Not Detected (Not Detect); Parainfluenza Virus 3 Not Detected (Not Detect); Parainfluenza Virus 4 Not Detected (Not Detect); Respiratory Syncytial Virus Not Detected (Not Detect)
[2019-06-06 01:10] LABS: INR 1.1; Prothrombin Time 12.9 Seconds (9.4-12.1)
[2019-06-06 01:13] LABS: Activated Partial Thrombo Time 31.3 Seconds (26.0-36.0)
[2019-06-06 01:28] LABS: Magnesium 1.9 mg/dL (1.6-2.6); Phosphorous 1.8 mg/dL (2.7-4.5)
[2019-06-06] MEDS: Ipratropium/Albuterol Neb 3 ML IH SCH ×2 (03:16→07:22)
[2019-06-06] MEDS: *HR* Heparin 5,000 UNIT/ML VIAL SQ SCH (05:16)
[2019-06-06] MEDS ORDERED: Acetaminophen/Aspirin/Caffeine TABLET PO PRN (05:24)
[2019-06-06 07:07] VITALS: BP 129/86
[2019-06-06] MEDS: Budesonide/Formoterol 80/4.5 1 PUFF INH IH SCH (07:22)
[2019-06-06] MEDS ORDERED: Insulin LISPRO 300 UNITS/3 ML VIAL SQ SCH (07:30)
[2019-06-06] MEDS: methylPREDNISolone 125 MG/2 ML VIAL IVP SCH (08:37)
[2019-06-06] MEDS: Benzonatate 100 MG CAPSULE PO PRN (08:46)
[2019-06-06] MEDS: Doxycycline 100 MG in 0.9 % Sodium Chloride Mini Bag 100 ML IVPB SCH ×2 (08:48→09:45)
[2019-06-06] MEDS ORDERED: lisinopriL 5 MG TABLET PO SCH (09:00)
[2019-06-06] MEDS ORDERED: Doxycycline 100 MG CAPSULE PO ONE (10:30)
[2019-06-06] MEDS ORDERED: Doxycycline 100 MG CAPSULE PO SCH (21:00)
== END 2019-06-06 11:08 | disposition home or self-care (01) ==
LOC: EMEROOARM 13:58 → 2ANU 13:58
PROVIDERS: ADMIT Internal Medicine; ATTEND Internal Medicine

== ENCOUNTER 2020-02-10 22:04 | Inpatient (IN) ==
[~2020-02-10 22:04] MED LIST: *HR* Rocuronium Bromide 50 MG/5 ML VIAL IVP ONE
[2020-02-10] MEDS ORDERED: Ipratropium/Albuterol Neb 3 ML ONE ×3 (22:07→22:28)
[2020-02-10] MEDS ORDERED: methylPREDNISolone 125 MG/2 ML VIAL ONE (22:07)
[2020-02-10] MEDS ORDERED: Ondansetron 4 MG/2 ML VIAL ONE ×2 (22:12→22:18)
[2020-02-10] MEDS ORDERED: Ketamine *HR* 500 MG/10 ML MDV ONE (22:32)
[2020-02-10 22:40] LABS: Basophils # 0.2 K/mcL (0.0-0.2); Basophils % 0.8 %; Eosinophils # 1.7 K/mcL (0.0-0.6); Eosinophils % 6.9 %; Hematocrit 41.6 % (35.3-44.9); Hemoglobin 13.2 g/dL (11.5-15.4); Immature Granulocytes % 0.3 % (0-4); Lymphocytes # 8.5 K/mcL (0.6-4.6); Lymphocytes % 34.7 %; Mean Corpuscular HGB Conc 31.7 g/dL (31.6-35.5); Mean Corpuscular Hemoglobin 30.2 pg (28.0-33.3); Mean Corpuscular Volume 95.2 fL (83.0-100.0); Mean Platelet Volume 8.4 fL (9.4-12.4); Monocytes # 2.5 K/mcL (0.0-1.3); Monocytes % 10.3 %; Neutrophils # 11.5 K/mcL (1.6-8.9); Platelet Count 399 K/mcL (140-400); Red Blood Count 4.37 M/mcL (3.82-4.97); Red Cell Distribution Width 13.6 % (11.5-14.5); White Blood Count 24.4 K/mcL (4.3-11.1)
[2020-02-10] MEDS ORDERED: Ketamine *HR* 500 MG/10 ML MDV IVP ONE (22:50)
[2020-02-10] MEDS ORDERED: methylPREDNISolone 125 MG/2 ML VIAL IVP ONE (22:54)
[2020-02-10] MEDS ORDERED: Ondansetron 4 MG/2 ML VIAL IVP ONE ×2 (22:55→22:56)
[2020-02-10 22:56] LABS: ABG Base Excess 1 mEq/L (-2 to 3); ABG HCO3 34 mEq/L (21-27); ABG Oxygen Saturation 98 % (95-98); ABG PCO2 101 mmHg (35-45); ABG PH 7.13 pH Units (7.32-7.45); ABG PO2 139 mmHg (85-104); ABG TCO2 37 mEq/L (20-26)
[2020-02-10] MEDS ORDERED: FentaNYL (PF) 1,000 MCG/100 ML IV.SOLN IVC SCH (22:56)
[2020-02-10 23:00] LABS: BUN/Creatinine Ratio 20 (6-26); Blood Urea Nitrogen 12 mg/dL (6-20); Calcium 9.6 mg/dL (8.6-10.3); Carbon Dioxide 28 mEq/L (23-29); Chloride 104 mEq/L (98-107); Glucose 123 mg/dL (70-105); Osmolality,Calculated 293 (280-300); Sodium 141 mEq/L (136-145); Troponin I < 0.03 ng/mL (< 0.04); eGFR For African Americans > 60 (> 60); eGFR For Non-African Americans > 60 (> 60)
[2020-02-10] MEDS ORDERED: Ipratropium/Albuterol Neb 3 ML IH ONE ×3 (23:04→23:06)
[2020-02-11] MEDS ORDERED: Naloxone 0.4 MG/ML INJ IVP PRN ×2 (00:06→17:09)
[2020-02-11] MEDS ORDERED: Ipratropium/Albuterol Neb 3 ML IH ONE (00:06)
[2020-02-11 00:14] LABS: ABG Base Excess 4 mEq/L (-2 to 3); ABG HCO3 31 mEq/L (21-27); ABG Oxygen Saturation 100 % (95-98); ABG PCO2 58 mmHg (35-45); ABG PH 7.34 pH Units (7.32-7.45); ABG PO2 267 mmHg (85-104); ABG TCO2 33 mEq/L (20-26); Blood Gas Modality ASSIST CONTROL; Blood Gas VT 400 cc
[2020-02-11] MEDS ORDERED: *HR* FentaNYL (PF) 100 MCG/2 ML VIAL IVP ONE (00:36)
[2020-02-11] MEDS ORDERED: *HR* Midazolam HCl 5 MG/5 ML VIAL IVP ONE ×2 (00:36→00:42)
[2020-02-11 00:59] LABS: Adenovirus Not Detected (Not Detect); Bordetella Pertussis Not Detected (Not Detect); Chlamydophila pneumoniae Not Detected (Not Detect); Coronavirus 229E Not Detected (Not Detect); Coronavirus HKU1 Not Detected (Not Detect); Coronavirus NL63 Not Detected (Not Detect); Coronavirus OC43 Not Detected (Not Detect); Human Metapneumovirus Not Detected (Not Detect); Human Rhinovirus/Enterovirus Not Detected (Not Detect); Influenza A Subtype 2009 H1 Not Detected (Not Detect); Influenza B Not Detected (Not Detect); Mycoplasma pneumoniae Not Detected (Not Detect); Parainfluenza Virus 1 Not Detected (Not Detect); Parainfluenza Virus 2 Not Detected (Not Detect); Parainfluenza Virus 3 Not Detected (Not Detect); Parainfluenza Virus 4 Not Detected (Not Detect); Respiratory Syncytial Virus Not Detected (Not Detect); SARS-CoV-2 Not Detected (Not Detect)
[2020-02-11] MEDS ORDERED: Artificial Tears SOLN 15 ML BOTTLE BOTH EYES PRN (01:26)
[2020-02-11] MEDS: 0.9 % Sodium Chloride 1,000 ML IVC SCH ×2 (04:22→12:30)
[2020-02-11] MEDS: Artificial Tears SOLN 15 ML BOTTLE BOTH EYES SCH ×3 (04:36→12:33)
[2020-02-11 04:37] LABS: ABG Base Excess 2 mEq/L (-2 to 3); ABG HCO3 30 mEq/L (21-27); ABG Oxygen Saturation 95 % (95-98); ABG PCO2 57 mmHg (35-45); ABG PH 7.33 pH Units (7.32-7.45); ABG PO2 85 mmHg (85-104); ABG TCO2 31 mEq/L (20-26); Blood Gas Modality AF; Blood Gas VT 400 cc
[2020-02-11] MEDS: Ipratropium/Albuterol Neb 3 ML IH SCH ×5 (05:20→20:18)
[2020-02-11] MEDS: MethylPREDNISolone 40 MG/ML VIAL IVP SCH ×4 (05:33→23:26)
[2020-02-11] MEDS ORDERED: *HR* Heparin 5,000 UNIT/ML VIAL SQ SCH (06:00)
[2020-02-11 06:26] LABS: Bacteria,Urine Moderate per hpf (None-Few); Bilirubin,Urine Negative (Negative); Blood,Urine Negative (Negative); Clarity,Urine Ex.Turbid (Clear); Color,Urine Orange (Yellow); Glucose,Urine (UA) Normal (Normal); Ketones,Urine Negative (Negative); Leukocyte Esterase,Urine Negative (Negative); Mucus,Urine Many per lpf (None-Few); Nitrite,Urine Negative (Negative); PH,Urine 5.5 pH Units (5.0-8.0); Protein,Urine 70 mg/dL (Neg-Trace); RBC,Urine 0-3 per hpf (0-3); Specific Gravity,Urine > 1.030 (1.010-1.025); Urobilinogen,Urine Normal (Normal)
[2020-02-11 07:01] LABS: Basophils % 0.1 %; Hemoglobin 12.7 g/dL (11.5-15.4); Immature Granulocytes % 0.4 % (0-4)
[2020-02-11 07:03] LABS: Eosinophils % 0.1 %; Hematocrit 40.5 % (35.3-44.9); Immature Platelets 3.8 % (1.1-6.1); Lymphocytes # 0.7 K/mcL (0.6-4.6); Lymphocytes % 7.6 %; Mean Corpuscular HGB Conc 31.4 g/dL (31.6-35.5); Mean Corpuscular Hemoglobin 30.2 pg (28.0-33.3); Mean Corpuscular Volume 96.4 fL (83.0-100.0); Mean Platelet Volume 9.5 fL (9.4-12.4); Monocytes # 0.1 K/mcL (0.0-1.3); Monocytes % 1.3 %; Neutrophils # 8.9 K/mcL (1.6-8.9); Platelet Count 229 K/mcL (140-400); Segmented Neutrophils % 90.5 %; White Blood Count 9.8 K/mcL (4.3-11.1)
[2020-02-11 07:15] LABS: VBG Ionized Calcium 0.78 mmol/L (1.15-1.35)
[2020-02-11 07:21] LABS: BUN/Creatinine Ratio 21 (6-26); Blood Urea Nitrogen 15 mg/dL (6-20); Calcium 8.8 mg/dL (8.6-10.3); Carbon Dioxide 21 mEq/L (23-29); Chloride 104 mEq/L (98-107); Glucose 161 mg/dL (70-105); Magnesium 2.3 mg/dL (1.6-2.6); Osmolality,Calculated 290 (280-300); Phosphorous 3.5 mg/dL (2.7-4.5); Potassium 4.3 mEq/L (3.5-5.1); Sodium 138 mEq/L (136-145); eGFR For African Americans > 60 (> 60); eGFR For Non-African Americans > 60 (> 60)
[2020-02-11] MEDS ORDERED: Cefepime HCl 1,000 MG in Water for inj. (sterile) 10 ML IVP SCH (08:00)
[2020-02-11] MEDS ORDERED: Clindamycin 600 MG/50 ML 600 MG/50 ML IV.SOLN IVPB SCH (08:00)
[2020-02-11 08:26] LABS: ABG Base Excess 1 mEq/L (-2 to 3); ABG HCO3 27 mEq/L (21-27); ABG Oxygen Saturation 98 % (95-98); ABG PCO2 45 mmHg (35-45); ABG PH 7.38 pH Units (7.32-7.45); ABG PO2 105 mmHg (85-104); ABG TCO2 28 mEq/L (20-26); Blood Gas Modality CPAP/PS; Blood Gas Pressure Support 5 cm H2O
[2020-02-11] MEDS ORDERED: Chlorhexidine Rinse 15 ML MOUTHWASH MM SCH (09:00)
[2020-02-11] MEDS ORDERED: Pantoprazole 40 MG VIAL IVP SCH (09:00)
[2020-02-11] MEDS ORDERED: Furosemide 40 MG/4 ML VIAL IVP SCH (09:00)
[2020-02-11] MEDS ORDERED: Ondansetron 4 MG/2 ML VIAL ONE (09:34)
[2020-02-11] MEDS ORDERED: Ondansetron 4 MG/2 ML VIAL IVP ONE (09:45)
[2020-02-11 10:32] LABS: Estimated Average Glucose 120 mg/dl
[2020-02-11] MEDS ORDERED: *HR* HYDROmorphone (PF) 1 MG/ML SYRINGE IVP ONE (12:23)
[2020-02-11] MEDS ORDERED: Perflutren Lipid Microsphere 1.3 ML in 0.9 % Sodium Chloride 8.7 ML IVP PRN (13:07)
[2020-02-11] MEDS ORDERED: Albuterol 2.5 MG/3 ML NEBULIZER IH PRN (17:09)
[2020-02-11] MEDS: Furosemide 40 MG/4 ML VIAL IVP SCH (20:07)
[2020-02-11] MEDS: Acetaminophen 325 MG TABLET PO PRN (23:43)
[2020-02-12] MEDS: Ipratropium/Albuterol Neb 3 ML IH SCH ×7 (00:07→23:34)
[2020-02-12 02:10] LABS: Hematocrit 37.2 % (35.3-44.9); Hemoglobin 12.2 g/dL (11.5-15.4); Mean Corpuscular HGB Conc 32.8 g/dL (31.6-35.5); Mean Corpuscular Hemoglobin 30.8 pg (28.0-33.3); Mean Corpuscular Volume 93.9 fL (83.0-100.0); Mean Platelet Volume 8.5 fL (9.4-12.4); Platelet Count 340 K/mcL (140-400); Red Blood Count 3.96 M/mcL (3.82-4.97)
[2020-02-12 02:19] LABS: White Blood Count 20.3 K/mcL (4.3-11.1)
[2020-02-12 02:31] LABS: BUN/Creatinine Ratio 22 (6-26); Blood Urea Nitrogen 15 mg/dL (6-20); Calcium 9.5 mg/dL (8.6-10.3); Carbon Dioxide 27 mEq/L (23-29); Chloride 96 mEq/L (98-107); Glucose 142 mg/dL (70-105); Osmolality,Calculated 283 (280-300); Potassium 3.9 mEq/L (3.5-5.1); Sodium 135 mEq/L (136-145); eGFR For African Americans > 60 (> 60); eGFR For Non-African Americans > 60 (> 60)
[2020-02-12] MEDS: MethylPREDNISolone 40 MG/ML VIAL IVP SCH ×3 (05:22→16:48)
[2020-02-12] MEDS: Loratadine 10 MG TABLET PO SCH (08:15)
[2020-02-12] MEDS: Furosemide 40 MG/4 ML VIAL IVP SCH ×2 (08:15→21:34)
[2020-02-12] MEDS: cefTRIAXone 1,000 MG in Water for inj. (sterile) 10 ML IVP SCH (08:16)
[2020-02-12] MEDS: Acetaminophen 325 MG TABLET PO PRN (08:29)
[2020-02-12] MEDS ORDERED: cefTRIAXone 1,000 MG in Water for inj. (sterile) 10 ML IVP SCH (09:00)
[2020-02-13] MEDS: MethylPREDNISolone 40 MG/ML VIAL IVP SCH ×2 (02:48→06:53)
[2020-02-13] MEDS: Ipratropium/Albuterol Neb 3 ML IH SCH ×2 (03:49→07:29)
[2020-02-13 06:19] LABS: BUN/Creatinine Ratio 37 (6-26); Blood Urea Nitrogen 23 mg/dL (6-20); Calcium 9.7 mg/dL (8.6-10.3); Carbon Dioxide 28 mEq/L (23-29); Chloride 96 mEq/L (98-107); Glucose 131 mg/dL (70-105); Osmolality,Calculated 283 (280-300); Phosphorous 3.3 mg/dL (2.7-4.5); Sodium 134 mEq/L (136-145); eGFR For African Americans > 60 (> 60); eGFR For Non-African Americans > 60 (> 60)
[2020-02-13 07:53] VITALS: BP 131/80
[2020-02-13] MEDS: Furosemide 40 MG/4 ML VIAL IVP SCH (07:55)
[2020-02-13] MEDS: Loratadine 10 MG TABLET PO SCH (07:55)
[2020-02-13] MEDS: cefTRIAXone 1,000 MG in Water for inj. (sterile) 10 ML IVP SCH (07:55)
== END 2020-02-13 10:46 | disposition home or self-care (01) | DRG 871 ==
LOC: EMEROOARM 22:04 → ICNU 02-11 01:07 → 2ANU 02-11 21:46
PROVIDERS: ADMIT Family Medicine; ATTEND Family Medicine

== ENCOUNTER 2020-07-26 13:56 | Observation (INO) ==
[2020-07-26] MEDS ORDERED: Ipratropium/Albuterol Neb 3 ML IH ONE (14:23)
[2020-07-26] MEDS ORDERED: Isovue-370 500 ML BOTTLE IVP ONE (14:23)
[2020-07-26 15:30] LABS: Basophils # 0.1 K/mcL (0.0-0.2); Basophils % 0.5 %; Eosinophils # 0.8 K/mcL (0.0-0.6); Eosinophils % 6.8 %; Hematocrit 41.1 % (35.3-44.9); Hemoglobin 13.4 g/dL (11.5-15.4); Immature Granulocytes % 0.3 % (0-4); Lymphocytes # 2.1 K/mcL (0.6-4.6); Lymphocytes % 18.4 %; Mean Corpuscular HGB Conc 32.6 g/dL (31.6-35.5); Mean Corpuscular Volume 92.2 fL (83.0-100.0); Mean Platelet Volume 8.4 fL (9.4-12.4); Monocytes # 0.8 K/mcL (0.0-1.3); Monocytes % 7.2 %; Neutrophils # 7.5 K/mcL (1.6-8.9); Platelet Count 324 K/mcL (140-400); Red Blood Count 4.46 M/mcL (3.82-4.97); Red Cell Distribution Width 14.6 % (11.5-14.5); Segmented Neutrophils % 66.8 %; White Blood Count 11.2 K/mcL (4.3-11.1)
[2020-07-26 15:34] LABS: BUN/Creatinine Ratio 17 (6-26); Blood Urea Nitrogen 9 mg/dL (6-20); Carbon Dioxide 23 mEq/L (23-29); Chloride 107 mEq/L (98-107); Glucose 87 mg/dL (70-105); Osmolality,Calculated 286 (280-300); Potassium 3.4 mEq/L (3.5-5.1); Sodium 139 mEq/L (136-145); eGFR For African Americans > 60 (> 60); eGFR For Non-African Americans > 60 (> 60)
[2020-07-26 15:35] LABS: Troponin I < 0.03 ng/mL (< 0.04)
[2020-07-26] MEDS ORDERED: Ondansetron 4 MG/2 ML VIAL IVP PRN (17:46)
[2020-07-26] MEDS ORDERED: Naloxone 0.4 MG/ML INJ IVP PRN (17:46)
[2020-07-26] MEDS ORDERED: Melatonin 3 MG TABLET PO PRN ×2 (17:46→17:50)
[2020-07-26] MEDS ORDERED: Ipratropium/Albuterol Neb 3 ML IH PRN (17:49)
[2020-07-26] MEDS ORDERED: Saline Nasal Spray 44 ML BOTTLE NS PRN (17:50)
[2020-07-26 18:34] LABS: ABG Base Excess 0 mEq/L (-2 to 3); ABG HCO3 22 mEq/L (21-27); ABG Oxygen Saturation 96 % (95-98); ABG PCO2 27 mmHg (35-45); ABG PH 7.53 pH Units (7.32-7.45); ABG PO2 71 mmHg (85-104); ABG TCO2 23 mEq/L (20-26)
[2020-07-26] MEDS: Ipratropium/Albuterol Neb 3 ML IH SCH ×2 (18:34→23:39)
[2020-07-26] MEDS: Chlorhexidine Rinse 15 ML MOUTHWASH MM SCH (21:37)
[2020-07-26] MEDS: *HR* LORazepam 0.5 MG TABLET PO PRN (21:37)
[2020-07-26] MEDS: Budesonide/Formoterol 160/4.5 1 PUFF INH IH SCH (23:39)
[2020-07-27] MEDS: Ipratropium/Albuterol Neb 3 ML IH SCH ×6 (04:04→23:43)
[2020-07-27 04:15] LABS: Basophils # 0.1 K/mcL (0.0-0.2); Basophils % 0.6 %; Eosinophils % 10.1 %; Hematocrit 39.4 % (35.3-44.9); Hemoglobin 12.8 g/dL (11.5-15.4); Immature Granulocytes % 0.1 % (0-4); Lymphocytes # 2.3 K/mcL (0.6-4.6); Lymphocytes % 23.5 %; Mean Corpuscular HGB Conc 32.5 g/dL (31.6-35.5); Mean Corpuscular Hemoglobin 29.7 pg (28.0-33.3); Mean Corpuscular Volume 91.4 fL (83.0-100.0); Mean Platelet Volume 8.4 fL (9.4-12.4); Monocytes # 0.8 K/mcL (0.0-1.3); Monocytes % 7.9 %; Neutrophils # 5.8 K/mcL (1.6-8.9); Platelet Count 295 K/mcL (140-400); Red Blood Count 4.31 M/mcL (3.82-4.97); Red Cell Distribution Width 14.6 % (11.5-14.5); Segmented Neutrophils % 57.8 %
[2020-07-27 04:35] LABS: Alanine Aminotransferase 12 Units/L (7-52); Albumin 4.1 g/dL (3.5-5.7); Albumin/Globulin Ratio 1.5 (1.1-2.2); Alkaline Phosphatase 80 Units/L (34-104); Aspartate Amino Transferase 14 Units/L (13-39); BUN/Creatinine Ratio 16 (6-26); Bilirubin,Total 0.6 mg/dL (0.3-1.0); Blood Urea Nitrogen 8 mg/dL (6-20); Carbon Dioxide 22 mEq/L (23-29); Chloride 105 mEq/L (98-107); Globulin 2.8 g/dL (2.4-3.5); Glucose 95 mg/dL (70-105); Magnesium 2.2 mg/dL (1.6-2.6); Osmolality,Calculated 278 (280-300); Phosphorous 3.3 mg/dL (2.7-4.5); Potassium 3.8 mEq/L (3.5-5.1); Sodium 135 mEq/L (136-145); Total Protein 6.9 g/dL (6.4-8.9); eGFR For African Americans > 60 (> 60); eGFR For Non-African Americans > 60 (> 60)
[2020-07-27] MEDS: *HR* Enoxaparin 40 MG/0.4 ML SYRINGE SQ SCH (05:42)
[2020-07-27] MEDS: Budesonide/Formoterol 160/4.5 1 PUFF INH IH SCH ×2 (07:53→19:37)
[2020-07-27] MEDS: Multivit/Ca/Min/Fe/FA 1 TAB TABLET PO SCH (09:45)
[2020-07-27] MEDS: Chlorhexidine Rinse 15 ML MOUTHWASH MM SCH ×2 (09:47→22:01)
[2020-07-27 11:59] LABS: Adenovirus Not Detected (Not Detect); Bordetella Pertussis Not Detected (Not Detect); Chlamydophila pneumoniae Not Detected (Not Detect); Coronavirus 229E Not Detected (Not Detect); Coronavirus HKU1 Not Detected (Not Detect); Coronavirus NL63 DETECTED (Not Detect); Coronavirus OC43 Not Detected (Not Detect); Human Metapneumovirus Not Detected (Not Detect); Human Rhinovirus/Enterovirus DETECTED (Not Detect); Influenza A Subtype 2009 H1 Not Detected (Not Detect); Influenza B Not Detected (Not Detect); Mycoplasma pneumoniae Not Detected (Not Detect); Parainfluenza Virus 1 Not Detected (Not Detect); Parainfluenza Virus 2 Not Detected (Not Detect); Parainfluenza Virus 3 Not Detected (Not Detect); Parainfluenza Virus 4 Not Detected (Not Detect); Respiratory Syncytial Virus Not Detected (Not Detect); SARS-CoV-2 Not Detected (Not Detect)
[2020-07-27] MEDS ORDERED: methylPREDNISolone 125 MG/2 ML VIAL IVP STA (12:52)
[2020-07-27] MEDS: methylPREDNISolone 125 MG/2 ML VIAL IVP SCH (19:43)
[2020-07-27] MEDS: *HR* LORazepam 0.5 MG TABLET PO PRN (22:00)
[2020-07-28] MEDS: methylPREDNISolone 125 MG/2 ML VIAL IVP SCH ×3 (00:53→17:49)
[2020-07-28 01:57] LABS: Hematocrit 40.1 % (35.3-44.9); Hemoglobin 13.3 g/dL (11.5-15.4); Mean Corpuscular HGB Conc 33.2 g/dL (31.6-35.5); Mean Corpuscular Hemoglobin 30.3 pg (28.0-33.3); Mean Corpuscular Volume 91.3 fL (83.0-100.0); Mean Platelet Volume 8.4 fL (9.4-12.4); Platelet Count 318 K/mcL (140-400); Red Blood Count 4.39 M/mcL (3.82-4.97); Red Cell Distribution Width 14.2 % (11.5-14.5); White Blood Count 6.9 K/mcL (4.3-11.1)
[2020-07-28 02:14] LABS: BUN/Creatinine Ratio 28 (6-26); Blood Urea Nitrogen 13 mg/dL (6-20); Calcium 9.2 mg/dL (8.6-10.3); Carbon Dioxide 20 mEq/L (23-29); Chloride 105 mEq/L (98-107); Glucose 163 mg/dL (70-105); Magnesium 2.2 mg/dL (1.6-2.6); Osmolality,Calculated 284 (280-300); Phosphorous 2.5 mg/dL (2.7-4.5); Potassium 3.9 mEq/L (3.5-5.1); Sodium 135 mEq/L (136-145); eGFR For African Americans > 60 (> 60); eGFR For Non-African Americans > 60 (> 60)
[2020-07-28] MEDS: Ipratropium/Albuterol Neb 3 ML IH SCH ×6 (03:30→23:42)
[2020-07-28] MEDS: *HR* Enoxaparin 40 MG/0.4 ML SYRINGE SQ SCH (06:00)
[2020-07-28] MEDS: Budesonide/Formoterol 160/4.5 1 PUFF INH IH SCH ×2 (07:55→19:30)
[2020-07-28] MEDS: Multivit/Ca/Min/Fe/FA 1 TAB TABLET PO SCH (09:59)
[2020-07-28] MEDS: Chlorhexidine Rinse 15 ML MOUTHWASH MM SCH ×2 (10:01→22:16)
[2020-07-29] MEDS: methylPREDNISolone 125 MG/2 ML VIAL IVP SCH ×2 (00:08→07:43)
[2020-07-29 01:08] LABS: Hematocrit 40.5 % (35.3-44.9); Hemoglobin 13.5 g/dL (11.5-15.4); Mean Corpuscular HGB Conc 33.3 g/dL (31.6-35.5); Mean Corpuscular Hemoglobin 30.6 pg (28.0-33.3); Mean Corpuscular Volume 91.8 fL (83.0-100.0); Mean Platelet Volume 8.7 fL (9.4-12.4); Platelet Count 364 K/mcL (140-400); Red Blood Count 4.41 M/mcL (3.82-4.97); Red Cell Distribution Width 14.5 % (11.5-14.5)
[2020-07-29 01:12] LABS: White Blood Count 12.9 K/mcL (4.3-11.1)
[2020-07-29 01:30] LABS: BUN/Creatinine Ratio 36 (6-26); Blood Urea Nitrogen 18 mg/dL (6-20); Calcium 9.4 mg/dL (8.6-10.3); Carbon Dioxide 22 mEq/L (23-29); Chloride 102 mEq/L (98-107); Glucose 160 mg/dL (70-105); Magnesium 2.1 mg/dL (1.6-2.6); Osmolality,Calculated 285 (280-300); Phosphorous 3.4 mg/dL (2.7-4.5); Potassium 3.9 mEq/L (3.5-5.1); Sodium 135 mEq/L (136-145); eGFR For African Americans > 60 (> 60); eGFR For Non-African Americans > 60 (> 60)
[2020-07-29] MEDS: Ipratropium/Albuterol Neb 3 ML IH SCH ×2 (03:55→07:28)
[2020-07-29] MEDS: *HR* Enoxaparin 40 MG/0.4 ML SYRINGE SQ SCH (05:52)
[2020-07-29 06:44] VITALS: BP 127/92
[2020-07-29] MEDS: Budesonide/Formoterol 160/4.5 1 PUFF INH IH SCH (07:28)
[2020-07-29] MEDS: Chlorhexidine Rinse 15 ML MOUTHWASH MM SCH (07:44)
[2020-07-29] MEDS: Multivit/Ca/Min/Fe/FA 1 TAB TABLET PO SCH (07:44)
== END 2020-07-29 10:50 | disposition home or self-care (01) ==
LOC: 3BNU 13:56 → EMEROOARM 13:56 → SUATTDRO 18:43 → 2NENU 19:03
PROVIDERS: ADMIT Internal Medicine; ATTEND Internal Medicine